=== PATIENT | female | born 1940 | race Caucasian/White ===

== ENCOUNTER → 2023-05-05 15:11 | Outpatient (REF) | payer OTHER, SELFPAY | LOC: HWRAD 15:11 | PROVIDERS: ATTENDING PHYSICIAN Internal Medicine Critical Care Medicine; FAMILY PHYSICIAN Chiropractor | DX: J47.9 Bronchiectasis, uncomplicated (principal) | CPT/HCPCS: 71250 ==

== ENCOUNTER → 2023-07-04 14:45 | Outpatient (REF) | payer OTHER, SELFPAY | LOC: HWRAD 14:45 | PROVIDERS: ATTENDING PHYSICIAN Nurse Practitioner Family | DX: K59.00 Constipation, unspecified (principal); M54.9 Dorsalgia, unspecified | CPT/HCPCS: 74018 ==

== ENCOUNTER → 2023-07-06 16:20 | Outpatient (REF) | payer OTHER, SELFPAY | LOC: RAD 16:20 | PROVIDERS: ATTENDING PHYSICIAN Family Medicine; FAMILY PHYSICIAN Nurse Practitioner Family | DX: R10.10 Upper abdominal pain, unspecified (principal) | CPT/HCPCS: 74176 ==

== ENCOUNTER → 2023-07-28 19:46 | Outpatient (REF) | payer OTHER, SELFPAY | LOC: MRI 19:46 | PROVIDERS: ATTENDING PHYSICIAN Internal Medicine; PRIMARYCARE PHYSICIAN Family Medicine | DX: K86.2 Cyst of pancreas (principal); K76.9 Liver disease, unspecified; N28.89 Other specified disorders of kidney and ureter; N28.1 Cyst of kidney, acquired | CPT/HCPCS: 74183; A9575 ==

== ENCOUNTER 2023-09-12 01:18 | Observation (INO) | payer OTHER, SELFPAY ==
[2023-09-11 21:14] VITALS: BP 180/88
--- NOTE | 2023-09-11 22:03 | ED.GENMED ---
History of Present Illness
General
Chief Complaint: Abdominal Pain
Source: patient
Exam Limitations: none
Time Seen by Provider: 09/11/23 21:20
History of Present Illness
History of Present Illness:
This is a 83 year old female that comes in with multiple complaints. States that she started in June with abd pain on the right side. States that she went to see her PCP and she had X-ray, CT scan. States that she was told that she was
constipated. States that she has seen 2 GI specialist and done colon cleans. States that she is taking Miralax. States that she went to the microchip specialist last week and she had injections at L2, L3. States that yesterday and today her pain
is worse. States that she has pain on both sided of her back that is moving up into her chest. States that she has chest pain, SOB. States that she is concerned that there is mucous plugging again due to her Bronchiectasis which she has had in the
past. States that she would like a chest CT. States that she did have a BM today. Denies any fever, chills, nausea, vomiting, diarrhea, headache, dizziness, urinary burning.
Past History
Past History
ED Past Medical History: Asthma, COPD, HTN and Other (Bronchiectasis, UTi, Kidney cyst, OA)
ED Past Surgical History: Orthopedic (right and left hip replacement)
Social History
Tobacco: Non-smoker
Alcohol: None
Personal:
Living: alone
Review of Systems
Review of Systems
All Other Systems: ROS reviewed and negative except as documented in HPI and ROS
Constitutional: Reports no symptoms; Denies fever or chills
EENT: Reports no symptoms
Respiratory: Reports trouble breathing; Denies cough
Cardiac: Reports chest pain
ABD/GI: Reports abdominal pain; Denies nausea, vomiting or diarrhea
: Reports no symptoms; Denies dysuria, frequency or urgency
Musculoskeletal: Reports no symptoms
Skin: Reports no symptoms
Neurological: Denies dizzy or headache
Psychiatric: Reports no symptoms
Phy Exam
General Physical Exam
General Presentation: no apparent distress
General age: appears stated age
General Skin: warm and dry
General Habitus: elderly
General Mental: alert
General Hydration: appears well hydrated
ENT Exam
ENT Exam: TM's normal, pharynx normal and neck supple
Eye Exam
Eye Exam: EOMI
Cardiovascular Exam
Cardiovascular Exam: regular rate/rhythm, no edema and normal peripheral pulses
Pulmonary Exam
Pulmonary Exam: no respiratory distress, chest non tender, no rhonchi, no wheezing, no cough and other (Rale right base)
Gastrointestinal Exam
Gastrointestinal Exam: normal bowel sounds, non tender, soft, no organomegaly, no pulsatile mass and non distended
Musculoskeletal Exam
Musculoskeletal Exam: full ROM and no edema
Skin Exam
Skin Exam: normal color, warm/dry, no rash and no petechia
Psychiatric Exam
Psychiatric Exam: normal mood/affect
Course
Orders/Labs/Results
Orders:
Orders
09/11/23 21:19
Electrocardiogram (*1) Urgent
Reason for Study: Chest Pain
EKG- Treatment ONCE
09/11/23 22:02
CT Chest With Iv Contrast Urgent
Comment: Concern for mucous plugging
Reason For Exam: SOB,
09/11/23 22:03
0.9% Sodium Chloride 1000 ml [Nss] 1,000 ml IV BOLUS
Ketorolac [Toradol] 30 mg IV NOW STA
09/11/23 22:10
Complete Blood Count/With Diff Urgent
Comprehensive Metabolic Panel Urgent
Troponin I Urgent
09/12/23 00:00
CR Abdomen - 1 View Urgent
Reason For Exam: ABD PAIN
09/12/23 01:00
Flush (0.9% Sodium Chloride) [Flush (Nss)] See Dose Instructions IV PER PROTOCOL
09/12/23 01:07
Admit/Transfer Patient As Directed
Co-Sign Provider:
Level of Care: Observation services
Assign to:: Medical/Surgical
Physician / Group: dinay
Diagnosis: Nonspecific abdominal pain and flank pain
09/12/23 01:08
Code Status As Directed
Resuscitation Status: Full Code
09/12/23 01:53
Acetaminophen [Tylenol] 650 mg PO Q4HPRN PRN
Bisacodyl [Dulcolax] 10 mg RECTAL [id number] PRN
Docusate W/Senna [Senokot-S] 1 tablet PO BIDPRN PRN
HYDROmorphone [Dilaudid] 0.5 mg IV Q4HPRN PRN
Polyethylene Glycol Powder [Miralax] 17 grams PO DAILYPRN PRN
tobramycin in 0.225 % NaCl See Dose Instructions INH R BID PRN
09/12/23 01:53
Activity As Directed
Activity Level: With Assistance
Vital Signs As Directed
Frequency: Per unit guidelines
DX Deep Vein Thrombosis Video Routine
09/12/23 Breakfast
Cholesterol Lowering
At Your Request: Full Participation
Cholesterol Lowering: Sodium, 2 Gram
Basic Metabolic Panel IN AM
Comprehensive Metabolic Panel IN AM
Physical Therapy Consult [Pt Eval And Treat] IN AM
Activity Level: With Assistance
09/12/23 08:00
Budesonide [Pulmicort] 0.5 mg INH BID
Ipratropium/Albuterol Sulfate [Duoneb] 3 ml INH R BID
Losartan/Hydrochlorothiazide [Hyzaar 50-12.5] 1 tab PO DAILY
Polyethylene Glycol Powder [Miralax] 17 grams PO DAILY
arformoterol [Brovana] 15 mcg IH BID
09/12/23 18:00
Enoxaparin Sodium [Lovenox] 40 mg SC QPM
Abnormal Lab Results
09/11/23
22:10
Sodium 134 L mmol/L
(135-145)
Chloride 96 L mmol/L
(98-107)
BUN 19 H mg/dl
(7-17)
Glucose 101 H mg/dl
(70-99)
09/11/23 22:10
09/11/23 22:10
chloride slightly low, dehydration. Glucose nonfasting. Troponin <0.012
Vital Signs
Initial and Last Documented VS:
Initial Vital Signs
Temp Pulse Resp BP Pulse Ox
97.2 F 82 24 180/88 100
09/11/23 21:14 09/11/23 21:14 09/11/23 21:14 09/11/23 21:14 09/11/23 21:14
Last Documented Vital Signs
Temp Pulse Resp BP Pulse Ox
98.4 F 73 14 169/77 95
09/12/23 01:50 09/12/23 01:50 09/12/23 01:50 09/12/23 01:50 09/12/23 01:50
MDM/Problems Addressed
Differential Diagnosis Includes:
Anxiety, Chronic abd pain, chronic back pain
MDM/Problems Addressed:
This is a 83 year old female that comes in with Multiple complaints. States that she started in June with right sided abd pain. States that she has had CT scan and MRI. Patient also have injection at L2-L3 last week. States that in the past 2 days
her pain has gotten worse and it is on both sided of her back and comes around into the left chest. States that she has been on the internet and she is afraid that she has Pleurisy and that there is mucous plugging in her lungs. States that she
would like a CT of her chest.
Will check labs, CT chest.
Back into see patient. Explained that her CT of her chest shows her chronic Bronchiectasis. No other acute process. Abd x-ray shows severe constipation. Does not appear from priox x-ray that the stool is moving. Patient continued with worsening
flank/back pain. Will admit for severe constipation. Hospitalist notified.
Chronic conditions affecting care: COPD (Bronchiectasis), Asthma and Other
Acute Exacerbation and/or Progression of Chronic Illness: COPD and Asthma
*Radiology
Radiology exam reviewed: radiology read reviewed (CT chest-No significant acute abnormality identified in the chest, as described above. Stable chronic changes suggesting chronic endobronchial infection)
*Pulse Oximetry
Patient hypoxic: no
*EKG
Interpreted by ED Provider?: Yes
Heart Rate: 76
Rate: normal
Rhythm: sinus
[place]: normal axis
Interval: normal interval
QRS Pattern: normal QRS
Ischemia: no ischemia
*Water [employer] Helper Interpretation
Rate: normal
Heart Rate: 80
Rhythm: sinus
*Critical Care Note
Total Time (30-74mins, 75-104mins- exclusive of procedures): Not Applicable
ED Attending Note
-
Portions of this chart may have been created with voice recognition software.� Occasional wrong word or��sound alike� substitutions may have occurred due to the inherent limitations of voice recognition software.
Discharge Plan
Departure
Patient Disposition: Admit
Date of Disposition: 09/12/23
Time of Disposition: 00:37
Admit to: Med/Surg
Presentation/result/management discussed w/ accepting MD/DO: Hospitalist
Patient with high blood pressure during this ER visit?: Yes
Condition: Good
Covid-19: Not Applicable
Discharge Problem:
severe Constipation, Bilateral flank pain
Interventions
Interventions:
*Risk Screen - Suicide Last Done: 09/11/23 21:14
*General Assessment Last Done: 09/11/23 22:25
*Neglect/Abuse Screening Last Done: 09/11/23 21:14
ED- Fall Risk Assessment Last Done: 09/12/23 01:45
*ED COVID-19 Vaccine History Last Done: 09/11/23 22:25
*Nursing Disposition Last Done: 09/12/23 01:45
ZX-Ayqcxt-Oghqhyvxfr Assessment Last Done: 09/11/23 22:39
ED- Cardiac Assessment Last Done: 09/11/23 22:39
ED- Pulmonary Assessment Last Done: 09/11/23 22:39
Discharge Date and Time
Discharge Date/Time: 09/12/23 01:46
[2023-09-11] MEDS: TORADOL 30 MG IV (22:11)
[2023-09-11] MEDS: NSS 1000 IV (22:11)
[2023-09-11 22:16] LABS: % Basophils 0.6 % (0-2); % Eosinophils 1.4 % (0-6); % Immature Granulocytes 0.4 % (0-0.5); % Lymphocytes 39.1 % (20.5-51.1); % Monocytes 7.4 % (1.7-9.3); % Neutrophils 51.1 % (42.2-75.2); Absolute Eosinophils 0.1 10^3/uL (0-0.7); Absolute Lymphocytes 2.7 10^3/uL (1.2-3.4); Absolute Monocytes 0.5 10^3/uL (0.1-0.6); Absolute Neutrophils 3.6 10^3/uL (1.4-6.5); Hematocrit 37.2 % (37.0-47.0); Hemoglobin 12.8 g/dL (12.0-16.0); Mean Corp Hgb Conc. 34.4 g/dL (33.0-37.0); Mean Corpuscular Hgb 29.9 pg (27.0-31.0); Mean Corpuscular Volume 86.9 fL (81.0-99.0); Mean Platelet Volume 9.4 fL (7.4-10.4); Nucleated Red Blood Cells % 0 %; Platelet Count 260 10^3/uL (130-400); Red Blood Cell Count 4.28 10^6/uL (4.20-5.40); Red Cell Dist. Width 13.2 % (11.5-14.5)
[2023-09-11 22:25] VITALS: BP 118/73; BMI 23.3
[2023-09-11 22:30] LABS: ALT (SGPT) 24 U/L (0-35); AST (SGOT) 28 U/L (14-36); Albumin 4.5 g/dl (3.5-5.0); Alkaline Phosphatase 126 U/L (38-126); Blood Urea Nitrogen 19 mg/dl (7-17); Calcium 9.6 mg/dl (8.4-10.2); Carbon Dioxide 30 mmol/L (22-30); Chloride 96 mmol/L (98-107); Estimated Creatinine Clearance 48 ml/min; Glucose 101 mg/dl (70-99); Potassium 3.9 mmol/L (3.5-5.1); Sodium 134 mmol/L (135-145); Total Bilirubin 0.5 mg/dl (0.2-1.3); Total Protein 7.1 g/dl (6.3-8.2); eGFR > 60.00
[2023-09-11 22:41] LABS: Troponin I < 0.012 ng/ml
[2023-09-11 23:00] VITALS: BP 152/69
[2023-09-12 00:56] VITALS: BP 149/79
--- NOTE | 2023-09-12 01:00 | HPS.HSE ---
Addendum entered and electronically signed by Pietro Donnelly MD 09/12/23 01:19:
Addendum HX:
Reports she drove herself to ER..
Original Note:
Family Physician
-
Family Physician: Shannan Escobar
Chief Complaint
-
abdominal pain, flank pain , bronchiectasis flare up ???
History of Present Illness
83F HX COPD, Bronchiectasis, UTI seen at ER for evaluation of abdominal pain and flank pain
Abdominal pain
- started since June noted aroud Rt sided abdomen
- eval by PCP and told constipation and eval by GI specialist
- MRI [facility] on 07/28/23 noted Large amount of fecal material throughout the proximal colon, multiple pancreatic cysts
- started on Miralax
- last BM today
- Denies any nausea, vomiting, diarrhea
B/l back pain
- s/p IAS L2 an L3 by ortho
- felt pain is worsened s/p IAS
- Non radiating pain
- no sensory deficit
HX Bronchiectasis
- Chest With Iv Contrast upon admission
-No significant acute abnormality identified in the chest, as described above.
- Stable chronic changes suggesting chronic endobronchial infection.
Medical History
Past Medical History
Past Medical History: Reports Asthma, COPD, HTN, Hypercholesterolemia and Other (Bronchiectasis, UTi, Kidney cyst, OA)
Past Surgical History: Reports Orthopedic (right and left hip replacement)
Social History
Tobacco: Non-smoker
Alcohol: None
Personal:
Family History
Family History: Not pertinent
Allergies / Home Medications
Allergies reflects when Allergies were last updated in [facility].
Home Medications with original date entered in [facility]
Allergy/Medication List:
Allergies
Allergy/AdvReac Type Severity Reaction Status Date / Time
neomycin Allergy Unknown Verified 09/11/23 21:17
Sulfa (Sulfonamide Allergy Unknown Verified 09/11/23 21:17
Antibiotics)
Home Medications
arformoterol 15 mcg/2 mL solution for nebulization (Brovana) 15 mcg IH BID 12/12/18
budesonide 0.5 mg/2 mL suspension for nebulization (Pulmicort) 0.5 mg IH BID 12/12/18
losartan 50 mg-hydrochlorothiazide 12.5 mg tablet 1 ea PO DAILY 12/12/18
tobramycin 300 mg/5 mL in 0.225 % sodium chloride for nebulization 300 mg IH BID PRN lung infection 12/12/18
ipratropium 0.5 mg-albuterol 3 mg (2.5 mg base)/3 mL nebulization soln 3 ml inhalation BID 09/12/23
Review of Systems
-
Constitutional: Reports No Symptoms
EENT: Reports No Symptoms
Respiratory: Reports No Symptoms
Cardiac: Reports No Symptoms
Abdomen/GI: Reports Abdominal Pain
: Reports No Symptoms
Musculoskeletal: Reports No Symptoms
Skin: Reports No Symptoms
Neurological: Reports No Symptoms
Endocrine: Reports No Symptoms
Hematologic/Lymphatic: Reports No Symptoms
Psych: Reports No Symptoms
Physical Exam
Vital Signs
Vital Signs
Temp Pulse Resp BP Pulse Ox
97.2 F 76 16 149/79 97
09/11/23 21:14 09/12/23 00:56 09/12/23 00:56 09/12/23 00:56 09/12/23 00:56
Physical Exam
General: Well Developed, Well Nourished and No Apparent Distress
HEENT: NormoCephalic, Moist mucous membranes and Atraumatic
Respiratory: Clear
Cardiac: S1/S2 and Regular Rhythm; No Murmur or Rub
GI: Soft, Non Tender, Non Distended and Normal Bowel Sounds; No Organomegaly
Rectal: Deferred by Provider
Musculoskeletal: No Clubbing, No Cyanosis and No Edema
Skin: No Rash
Neuro: Nonfocal/grossly intact
Laboratory Results
-
09/11/23 22:10
09/11/23 22:10
Laboratory Results
Total Bilirubin 0.5 mg/dl (0.2-1.3) 09/11/23 22:10
AST 28 U/L (14-36) 09/11/23 22:10
ALT 24 U/L (0-35) 09/11/23 22:10
Alkaline Phosphatase 126 U/L (38-126) 09/11/23 22:10
Troponin I < 0.012 ng/ml 09/11/23 22:10
Data Reviewed
-
CT Scan: Report Reviewed by me
Medical Tests (Nuc Med, Echo, EKG etc): Report Reviewed by me
Lab Data: Labs Reviewed by me
Old Records: Reviewed
Impression/Plan
-
Reviewed VS: Afebrile and unremarkable VSS
Data
Unremarkable CBC
Na 134
Cl 96
BUN 19
eGFR > 60
unremarkable LFTs
NEG TPNI
09/11/23 CT Chest With Iv Contrast
1. No significant acute abnormality identified in the chest, as described above.
2. Stable chronic changes suggesting chronic endobronchial infection.
07/28/23 MR Abdomen W/o & W Contrast
1. PANCREATIC HEAD CYSTS: (1) 1.2 cm multiseptated cyst which is unchanged in size. (2) 1.3 cm cyst which has mildly enlarged. Diagnostic possibilities are (1) pancreatic pseudocysts or (2) intraductal papillary mucinous tumors (IPMTs).
2. Bilateral simple and complex renal cysts.
3. 6.4 mm peripheral vascular shunt in the right lobe of the liver.
4. Mild adenomyomatosis in the gallbladder fundus.
5. 1.3 cm left adrenal adenoma.
6. Large amount of fecal material throughout the proximal colon suggesting SEVERE CONSTIPATION with an incompetent ileocecal valve and fecal-like material distending the terminal ileum.
7. SEVERE BRONCHIECTASIS in the right middle lobe and lingula.
8. Severe multilevel discogenic degenerative disease in the lumbar spine.
07/06/23 CT Abd/pelvis Wo Iv Cont
1. No CT evidence for intrarenal calculus, ureteral calculus, or hydroureteronephrosis. Mild bilateral renal cortical volume loss. Small number of bilateral renal cysts.
2. Moderate right convex curvature of the midlumbar spine. Severe discogenic degenerative disease and facet joint arthrosis in the lumbar spine. 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
3. Severe cystic and varicoid bronchiectasis in the right middle lobe and lingula. Mild varicoid bronchiectasis in the peripheral aspect of the basilar segments of the lower lobes with small focal regions of peripheral endobronchial impaction in
the right lower lobe.
EKG
NORMAL SINUS RHYTHM
NORMAL ECG
NO PRIOR hospitalist admission:
ASSESSMENT & PLAN
Subacute abdominal pain related to constipation
Likely resolved with Miralax
- cont Miralax
B/l back pain felt pain is worsened s/p IAS 1.5 week ago
- s/p IAS L2 an L3 by ortho
- Non radiating pain
- no sensory deficit
- PRN Analgesia
- BW regime'
- PT/OT
Stable bronchiectasis per current CT chest
- cont all OP Meds
Essential HTN
- stable
- cont. Losartan/HCTZ and amlodipine
- Marginal hyponatremia
- observe Na while on HCTZ
HLD
- cont. Atorvastatin
DVT Px: LMWH
Code: Full code
Obs MS
[2023-09-12 01:50] VITALS: BP 169/77; BMI 25.6
[2023-09-12] MEDS: TYLENOL 650 MG PO ×3 (02:25→22:06)
[2023-09-12 07:10] VITALS: BP 164/79
[2023-09-12] MEDS: PULMICORT 0.5 MG INH ×2 (07:16→19:07)
[2023-09-12] MEDS: DUONEB 3 ML INH (07:16)
[2023-09-12 07:53] LABS: ALT (SGPT) 22 U/L (0-35); AST (SGOT) 26 U/L (14-36); Alkaline Phosphatase 108 U/L (38-126); Blood Urea Nitrogen 15 mg/dl (7-17); Calcium 9.2 mg/dl (8.4-10.2); Carbon Dioxide 27 mmol/L (22-30); Chloride 102 mmol/L (98-107); Estimated Creatinine Clearance 64 ml/min; Glucose 85 mg/dl (70-99); Potassium 3.9 mmol/L (3.5-5.1); Sodium 136 mmol/L (135-145); Total Bilirubin 0.5 mg/dl (0.2-1.3); Total Protein 6.3 g/dl (6.3-8.2); eGFR > 60.00
[2023-09-12] MEDS: MIRALAX 17 GRAMS PO (08:03)
[2023-09-12] MEDS: HYZAAR 50-12.5 1 TAB PO (08:03)
--- NOTE | 2023-09-12 11:52 | PTOTSP ---
Received order for PT from the ED and reviewed chart. Noted pt drove herself to the hospital. S/w RN who reports pt is ambulating independently in her room ad arelis and does not need PT services. Will sign off.
--- NOTE | 2023-09-12 13:00 | CM ---
Reviewed chart, met with patient to obtain information for assessment. OBS letter provided, signed and is on chart. Patient stated that she lives alone in a [facility]. It is all one floor. No steps. Patient ambulates
independently without device. She described herself as independent with ADLs, personal care, dressing and bathing. She relayed that she can cook, clean, do pulmonary specialist and laundry. Patient drives and can get herself to all of her appointments
and to the store.
Patient has a nebulizer but denied any other DME.
Patient has not had VN services in the past.
She has never been to a SNF.
Patient has a prescription plan and uses [facility] in [place] for all of her medications.
Her PCP is, Shannan Escobar MD.
Patient stated that physically she feels that she is at her baseline and she would like to return home when medically cleared. Patient drove herself to the hospital and anticipates driving home.
Plan: Case management will continue to follow and assist with discharge planning. Home when medically stable for discharge.
[2023-09-12 15:15] VITALS: BP 158/80
[2023-09-12] MEDS: SENOKOT-S 1 TABLET PO (16:47)
[2023-09-12] MEDS: LOVENOX 40 MG SC (17:31)
[2023-09-12] MEDS: NON-FORMULARY ITEM 15 MCG NEB (19:06)
[2023-09-12] MEDS: DULCOLAX 10 MG RECTAL (22:09)
[2023-09-12 23:04] VITALS: BP 130/71
--- NOTE | 2023-09-13 07:04 | CON.GI ---
Addendum entered and electronically signed by RACH Miller 09/13/23 11:40:
reviewed with Dr. sarabia and nursing staff stable for discharge
Original Note:
Consultation
-
Date/Time Consultation Requested: 09/12/23 1730
Date/Time Consultation Performed: 09/13/23 1045
Requesting Provider: Babak Sarabia MD
Performing Provider: RACH Alfaro, Hong Siegel MD
Reason for Consultation: abdominal pain
Medical History
Chief Complaint / HPI
History of Present Illness:
Pt is an 83yo presents with hx pancreatic cysts with prior OP follow on imaging, COPD, asthma, bronchiectasis, HTN, hypercholesterolemia presents to ER for abdominal and flank pain. On admission Abdominal X ray with large amount of feces in colon
suggesting constipation. Hx colonoscopy Dr. Camahco 2020 with moderate difficulty due to angulation to cecum with diverticulosis, fixation an spasm in sigmoid with difficuly and hemorrhoids. In reviewing with patient hx chronic constipation with
worsening symptoms last few months. She did have some change in supplement with flax seed oil but denies any medication changes. She did seek care with ortho for back injection and urology with hx renal cyst to exclude other pathology. She also
saw 2 outpatient GI MD's. She saw Dr. Hicks with [facility] and completed Miralax/Gatorade cleanse with no improvement in past with vomiting and diarrhea with use. She also tried Mag citrate cleanse with PCP. She saw Dr. Currie who recommended mag
citrate cleanse then X ray then start Trulance. She did also try Linzess in past with side effect of headache and stopped.
She describes abdominal pain as right sided under ribs 7/10 on admission now some improvement with BM 5-6/10. She denies issues with odynophagia, dysphagia, GERD, nausea/vomiting(except with cleanse), blood or black in stools. No
anticoagulation or NSAID use. Last MRI last month with noted pancreatic head cyst including 1.2 cm multiseptated cyst and 1.3 cm cyst with mild enlargement - pseudocyst vs IPMN.
Past Medical History
Past Medical History: Asthma, COPD, HTN, Hypercholesterolemia and Other (bronchiectasis, UTI, kidney cysts, OA, pancreatic cysts, adrenal adenoma, constipation, renal cyst)
Past Surgical History: Orthopedic (right and left hip replacement )
Social History
Tobacco: Non-Smoker
Alcohol: None
Drug: None
Living: Alone
Employment: Retired
Family History
Family History: Other (no family hx GI malignancies )
Allergies / Home Medications
Allergy/AdvReac Type Severity Reaction Status Date / Time
neomycin Allergy Unknown Verified 09/11/23 21:17
Sulfa (Sulfonamide Allergy Unknown Verified 09/11/23 21:17
Antibiotics)
�Medication �Instructions �Recorded
arformoterol 15 mcg/2 mL solution 15 mcg IH BID 12/12/18
for nebulization (Brovana)
budesonide 0.5 mg/2 mL suspension 0.5 mg IH BID 12/12/18
for nebulization (Pulmicort)
losartan 50 mg-hydrochlorothiazide 1 ea PO DAILY 12/12/18
12.5 mg tablet
tobramycin 300 mg/5 mL in 0.225 % 300 mg IH BID PRN lung infection 12/12/18
sodium chloride for nebulization
ipratropium 0.5 mg-albuterol 3 mg 3 ml inhalation BID 09/12/23
(2.5 mg base)/3 mL nebulization
soln
Review of Systems
-
History Source: Patient
Constitutional: Reports Weight Loss (in past with prior resp issues gained a few lbs back )
EENT: Reports No Symptoms
Respiratory: Reports No Symptoms
Abdomen/GI: Reports Abdominal Pain and Constipated
: Reports No Symptoms
Musculoskeletal: Reports No Symptoms
Skin: Reports No Symptoms
Neurological: Reports Other (depression with GI issues )
Endocrine: Reports No Symptoms
Hematologic/Lymphatic: Reports No Symptoms
Vital Signs
Temp Pulse Resp BP Pulse Ox
98.6 F 80 17 130/71 96
09/12/23 23:04 09/12/23 23:04 09/12/23 23:04 09/12/23 23:04 09/12/23 23:04
Physical Exam
Exam
General: Well Developed, Well Nourished and No Apparent Distress
HEENT: Normocephalic and Anicteric
Respiratory: Clear
Cardiac: Regular Rhythm
GI: Soft, Non Distended and Tender (right sided )
Musculoskeletal: No Clubbing and No Cyanosis
Skin: Warm and Dry
Neuro: Awake, Alert and AO x 3
Psych: Calm
Results
WBC 7.0 10^3/uL (4.8-10.8) 09/11/23 22:10
Hgb 12.8 g/dL (12.0-16.0) 09/11/23 22:10
Hct 37.2 % (37.0-47.0) 09/11/23 22:10
MCV 86.9 fL (81.0-99.0) 09/11/23 22:10
Plt Count 260 10^3/uL (130-400) 09/11/23 22:10
Absolute Neuts (auto) 3.6 10^3/uL (1.4-6.5) 09/11/23 22:10
Sodium 136 mmol/L (135-145) 09/12/23 06:52
Potassium 3.9 mmol/L (3.5-5.1) 09/12/23 06:52
Chloride 102 mmol/L (98-107) 09/12/23 06:52
Carbon Dioxide 27 mmol/L (22-30) 09/12/23 06:52
BUN 15 mg/dl (7-17) 09/12/23 06:52
Creatinine 0.6 mg/dL (0.6-1.0) 09/12/23 06:52
Calcium 9.2 mg/dl (8.4-10.2) 09/12/23 06:52
Total Bilirubin 0.5 mg/dl (0.2-1.3) 09/12/23 06:52
AST 26 U/L (14-36) 09/12/23 06:52
ALT 22 U/L (0-35) 09/12/23 06:52
Alkaline Phosphatase 108 U/L (38-126) 09/12/23 06:52
Diagnostic Image Results:
09/11/23 CT chest
1. No significant acute abnormality identified in the chest, as described above.
2. Stable chronic changes suggesting chronic endobronchial infection.
09/12/23 abd X ray
There is a large amount of feces throughout the colon suggesting constipation
07/28/23 MR Abdomen W/o  W Contrast
1. PANCREATIC HEAD CYSTS: (1) 1.2 cm multiseptated cyst which is unchanged in size. (2) 1.3 cm cyst which has mildly enlarged. Diagnostic possibilities are (1) pancreatic pseudocysts or (2) intraductal papillary mucinous tumors (IPMTs).
2. Bilateral simple and complex renal cysts.
3. 6.4 mm peripheral vascular shunt in the right lobe of the liver.
4. Mild adenomyomatosis in the gallbladder fundus.
5. 1.3 cm left adrenal adenoma.
6. Large amount of fecal material throughout the proximal colon suggesting SEVERE CONSTIPATION with an incompetent ileocecal valve and fecal-like material distending the terminal ileum.
7. SEVERE BRONCHIECTASIS in the right middle lobe and lingula.
8. Severe multilevel discogenic degenerative disease in the lumbar spine.
Prior GI Procedures:
Colonoscopy: Dr. Camahco 2020 with moderate difficulty due to angulation to cecum with diverticulosis, fixation an spasm in sigmoid with difficuly and hemorrhoids.
Assessment / Plan
-
Pt is an 83yo presents with hx pancreatic cysts with prior OP follow on imaging, COPD, asthma, bronchiectasis, HTN, hypercholesterolemia presents to ER for abdominal and flank pain. On admission Abdominal X ray with large amount of feces in colon
suggesting constipation. Hx colonoscopy Dr. Camacho 2020 with moderate difficulty due to angulation to cecum with diverticulosis, fixation an spasm in sigmoid with difficulty and hemorrhoids. In reviewing with patient hx chronic constipation with
worsening symptoms last few months. She did have some change in supplement with flax seed oil but denies any medication changes. She did seek care with ortho for back injection and urology with hx renal cyst to exclude other pathology. She also
saw 2 outpatient GI MD's. She saw Dr. Hicks with [facility] and completed Miralax/Gatorade cleanse with no improvement in past with vomiting and diarrhea with use. She also tried Mag citrate cleanse with PCP. She saw Dr. Currie who recommended mag
citrate cleanse then X ray then start Trulance. She did also try Linzess in past with side effect of headache and stopped.
-abdominal pain
-worsening constipation
-hx colonoscopy 2020 with with moderate difficulty due to angulation to cecum with diverticulosis, fixation an spasm in sigmoid with difficulty and hemorrhoids
-pancreatic cysts -- followed with serial MRI's
other medical problems:
--COPD
-asthma
-bronchiectasis
-HTN
-hypercholesterolemia
PLAN:
etiology of abdominal pain related to constipation vs other
pt with some improvement with passing of stools overnight
reviewed at length with patient for discharge
Miralax 17 gram BID and senna at HS
PRN mag citrate and dulcolax and if needed Enema
if not working can change to Trulance daily
can try to slowly add fiber
message sent to office for STUDENT ACCOUNTS MANAGER follow up 6-8 weeks
if not improving consider repeat colonoscopy
routine OP follow for panc cysts
-
-
Thank you for consultation and allowing me to participate in the patient's care. Please call the infection prevention practitioner GI physician during the after hours with any questions or concerns.
[2023-09-13] MEDS: NON-FORMULARY ITEM 15 MCG NEB (07:44)
[2023-09-13] MEDS: PULMICORT 0.5 MG INH (07:45)
[2023-09-13 07:52] VITALS: BP 154/89
[2023-09-13] MEDS: DUONEB 3 ML INH (08:05)
[2023-09-13] MEDS: MIRALAX 17 GRAMS PO (08:18)
[2023-09-13] MEDS: HYZAAR 50-12.5 1 TAB PO (08:18)
--- NOTE | 2023-09-13 11:37 | W.PN.HOSP.TC ---
Today's Communication/Plan
-
DC
Assessment / Plan
Assessment / Plan
ASSESSMENT & PLAN
Subacute abdominal pain suspect related to constipation
Patient has a symptom is chronic for at least the last 2 to 3 months. She had a evaluation including abdominal imaging as above. She does have redundant transverse colon and right-sided constipation. Continue the bowel regimen. Appreciate GI
input-recommend combination of bowel regimen and follow-up as outpatient. Lab work is all within normal limit.
B/l back pain felt pain is worsened s/p IAS 1.5 week ago
- s/p IAS L2 an L3 by ortho
- No sciatica nor lumbar tenderness
Stable bronchiectasis per current CT chest
- cont all OP Meds
Essential HTN
- stable
- cont. Losartan/HCTZ and amlodipine
- Marginal hyponatremia
- observe Na while on HCTZ
HLD
- cont. Atorvastatin
Medically stable for dc home today
Anticipated Discharge: Today
Subjective/Interval History
-
Date of Service: September 13, 2023
patient with a longstanding history of constipation ,saw 2 GI physicians, had a few abdominal imaging before coming to the hospital. She says nothing is helping her. If she gets too much laxatives she then has a diarrheal stool. She says she
had a colonoscopy and then needed to use a pediatric scope because her colon was redundant.
Her other symptom is right-sided back to upper abdominal pain which goes across the abdomen to the left side. Mostly there intermittently ,get worse. Worse with food. Better with a bowel movement.
Objective Data
-
Vital Signs:
Vital Signs
Temp Pulse Resp BP Pulse Ox
98.2 F 80 18 154/89 96
09/13/23 07:52 09/13/23 08:18 09/13/23 07:52 09/13/23 08:18 09/13/23 07:52
I&O
09/12/23 09/13/23 09/14/23
06:59 06:59 06:59
Intake Total 480 / 480 1200 / 1200
Balance 480 / 480 1200 / 1200
Review of Systems
-
Constitutional: Denies Fever
EENT: Denies Sore Throat
Respiratory: Denies Cough or Trouble Breathing
Cardiac: Denies Chest Pain
Neuro: Denies Dizzy
Physical Exam
-
General: No Apparent Distress
HEENT: Moist Mucous Membranes
Respiratory: Clear to Auscultation
Cardiac: Regular Rhythm and S1/S2
GI: Soft, Nontender, Nondistended and Normal Bowel Sounds
Musculoskeletal: Other (no lumbar or thoracic vertebral tenderness on palpation today)
Neuro: AO x 3
Psych: Calm
Data Reviewed
-
Labs: Labs Reviewed by me
--- NOTE | 2023-09-13 11:48 | W.DS.TRANS ---
DC Summary - Credit Intern
-
Discharge Instructions:
Discharge Diagnosis/Procedures Constipation
Diet Regular
Activity As tolerated
Driving Restrictions As prior to admission
Instructions:
Stand-Alone Forms:
Changes to Home Medications: Yes
Discharge Medications:
DC Medications w/original date entered in Contrib
arformoterol 15 mcg/2 mL solution for nebulization (Brovana) 15 mcg IH R BID Lung/Breathing Issues 12/12/18
budesonide 0.5 mg/2 mL suspension for nebulization (Pulmicort) 0.5 mg IH R BID Lung/Breathing Issues 12/12/18
tobramycin 300 mg/5 mL in 0.225 % sodium chloride for nebulization 300 mg IH BID PRN lung infection 12/12/18
ipratropium 0.5 mg-albuterol 3 mg (2.5 mg base)/3 mL nebulization soln 3 ml inhalation R BID Lung/Breathing Issues 09/12/23
amlodipine 2.5 mg tablet 2.5 mg PO DAILY Blood Pressure 09/13/23
docusate sodium 100 mg capsule (Colace) 100 mg PO BID #60 caps 09/13/23
losartan 100 mg-hydrochlorothiazide 25 mg tablet 1 tab PO DAILY Blood Pressure 09/13/23
polyethylene glycol 3350 17 gram oral powder packet (HealthyLax) 17 g PO BID #60 ea 09/13/23
sennosides 8.6 mg capsule (senna) 8.6 mg PO HS PRN Constipation #30 caps 09/13/23
Home Medication Changes
Medication-Colace, MiraLAX, senna as needed
Pending Results: No
== END 2023-09-13 11:50 | disposition home or self-care (01) ==
LOC: 3 WEST ACU 01:18
PROVIDERS: Clinical Nurse Specialist Family Health; ADMITTING PHYSICIAN Internal Medicine; ATTENDING PHYSICIAN Internal Medicine; CONSULT PHYSICIAN Internal Medicine Gastroenterology; EMERGENCY PHYSICIAN Emergency Medicine; FAMILY PHYSICIAN Family Medicine
DX: K59.00 Constipation, unspecified (principal); R10.9 Unspecified abdominal pain; R07.9 Chest pain, unspecified; R06.02 Shortness of breath; J44.9 Chronic obstructive pulmonary disease, unspecified; I10 Essential (primary) hypertension; M19.90 Unspecified osteoarthritis, unspecified site; E78.5 Hyperlipidemia, unspecified; Q43.8 Other specified congenital malformations of intestine; N28.1 Cyst of kidney, acquired; E86.0 Dehydration; M54.9 Dorsalgia, unspecified; E87.1 Hypo-osmolality and hyponatremia; K86.2 Cyst of pancreas; E78.00 Pure hypercholesterolemia, unspecified; J47.9 Bronchiectasis, uncomplicated; Z87.440 Personal history of urinary (tract) infections; Z96.643 Presence of artificial hip joint, bilateral; Z88.1 Allergy status to other antibiotic agents; Z88.2 Allergy status to sulfonamides; Z79.51 Long term (current) use of inhaled steroids; Z86.018 Personal history of other benign neoplasm
CPT/HCPCS: 71260; 74018; 80048; 80053; 84484; 85025; 93005; 94640; 96361; 96374; 99285; G0378; Q9967

== ENCOUNTER → 2023-09-20 12:05 | Outpatient (REF) | payer OTHER, SELFPAY | LOC: HWRAD 12:05 | PROVIDERS: ATTENDING PHYSICIAN Nurse Practitioner Family; REFERRING PHYSICIAN Family Medicine | DX: M89.8X9 Other specified disorders of bone, unspecified site (principal); M79.671 Pain in right foot | CPT/HCPCS: 73620; 76604 ==

== ENCOUNTER → 2023-09-21 14:29 | Outpatient (REF) | payer OTHER, SELFPAY | LOC: RAD 14:29 | PROVIDERS: ATTENDING PHYSICIAN Internal Medicine Critical Care Medicine; FAMILY PHYSICIAN Family Medicine | DX: R10.11 Right upper quadrant pain (principal); K81.9 Cholecystitis, unspecified | CPT/HCPCS: 76700 ==

== ENCOUNTER → 2023-09-27 10:22 | Outpatient (REF) | payer OTHER, SELFPAY | LOC: HWRAD 10:22 | PROVIDERS: ATTENDING PHYSICIAN Internal Medicine Gastroenterology; FAMILY PHYSICIAN Family Medicine | DX: K59.04 Chronic idiopathic constipation (principal) | CPT/HCPCS: 74018 ==

== ENCOUNTER → 2023-10-12 07:16 | Outpatient (REF) | payer OTHER, SELFPAY | LOC: RAD 07:16 | PROVIDERS: ATTENDING PHYSICIAN Physician Assistant; FAMILY PHYSICIAN Family Medicine | DX: R10.11 Right upper quadrant pain (principal) | CPT/HCPCS: 78227; A9537; J2805 ==

== ENCOUNTER 2024-01-20 06:37 | Day surgery (SDC) | payer OTHER, SELFPAY ==
[2024-01-20] VITALS (12 sets, daily range): BP systolic 110–157; BP diastolic 54–76
[2024-01-20] MEDS: TYLENOL 1000 MG PO (09:58)
--- NOTE | 2024-01-20 10:25 | HP.FOC2 ---
Focused History & Physical
Chief Complaint
HPI:
Chief Complaint: Right upper quadrant pain
HPI / Indication for Planned Procedure: Patient is an 83-year-old female seen in outpatient surgical evaluation secondary to a history of intermittent right upper quadrant right flank pain. She has been experiencing bandlike upper abdominal
discomfort as pain as well as bloating. It is triggered to a degree by every and any meal but worse with fatty food intake and dairy. She has had extensive radiographic testing and imaging studies as well as for colonoscopy evaluations without any
additional pathology identified. She does have adenomyomatosis. After lengthy discussions with the patient regarding treatment options she wished to pursue cholecystectomy for the presumed diagnosis of biliary dyskinesia/functional disorder of the
gallbladder.
Relevant Past Medical History: Other ( Asthma, bronchiectasis, hip pain, jaw pain, hypertension)
Relevant Social History: Negative
Relevant Family History: Negative
Relevant Past Surgical History: Positive for (Thumb procedure, cataracts, bilateral hip replacements, bronchoscopy and endoscopies)
Review of Systems
Review of Pertinent Systems: All Systems Negative
Medication
See Medication form for detailed medications: Yes
Medication List (including Herbals & OTC):
budesonide 0.5 mg/2 mL suspension for nebulization (Pulmicort) 0.5 mg IH R BID Lung/Breathing Issues 12/12/18
tobramycin 300 mg/5 mL in 0.225 % sodium chloride for nebulization 300 mg IH BID PRN lung infection 12/12/18
amlodipine 2.5 mg tablet 2.5 mg PO DAILY Blood Pressure 09/13/23
losartan 100 mg-hydrochlorothiazide 25 mg tablet 1 tab PO DAILY Blood Pressure 09/13/23
Black Seed Oil 4 ml PO BID 01/19/24
Clear Lungs 1,000 mg PO DAILY 01/19/24
Hair Growth Support 1 cap PO DAILY 01/19/24
Oregarest 1 cap PO DAILY 01/19/24
Probiotic 1 cap PO DAILY@1200 01/19/24
acetylcysteine 100 mg/mL (10 %) solution 2 mg inhalation BID 01/19/24
arformoterol 15 mcg/2 mL solution for nebulization 15 mcg inhalation BID 01/19/24
ascorbic acid (vitamin C) 500 mg tablet (Vitamin C) 500 mg PO DAILY 01/19/24
aspirin 81 mg tablet,delayed release 81 mg PO DAILY 01/19/24
cyanocobalamin (vitamin B-12) 5,000 mcg/mL sublingual drops (Vitamin B-12) 5,000 mcg sublingual DAILY 01/19/24
docusate sodium 100 mg capsule (Colace) 100 mg PO DAILY 01/19/24
ipratropium bromide 0.02 % solution for inhalation 0.5 mg inhalation BID 01/19/24
linaclotide 145 mcg capsule (Linzess) 145 mcg PO DAILY 01/19/24
magnesium 140 mg PO HS 01/19/24
eliel d arco 1 dose PO DAILY 01/19/24
polyethylene glycol 3350 17 gram oral powder packet (HealthyLax) 17 g PO DAILY 01/19/24
quercetin 1 cap PO BID 01/19/24
vitamin A-vitamin C-vit E-min tablet 1 tab PO DAILY 01/19/24
Medications Reviewed: Yes
Allergies and Reactions
Patient has Allergies: Yes
Noted Allergies and Reactions:
Allergy/AdvReac Type Severity Reaction Status Date / Time
neomycin Allergy Inflammatio Verified 01/20/24 09:51
n
Sulfa (Sulfonamide Allergy Rash Verified 01/20/24 09:51
Antibiotics)
Opiods AdvReac Bronchaicti Uncoded 01/20/24 09:51
sis
Pertinent Physical Exam
All Other Systems: Negative
Head/Neck: Normal
Lungs: Normal
Heart: Normal
Abdomen: Normal
Extremities: Normal
Neurological: Normal
Diagnosis / Assessment
Assessment: 83-year-old female with adenomyomatosis of the gallbladder and presumed functional gallbladder disorder/biliary dyskinesia
Plan / Procedure
Laparoscopic cholecystectomy with cholangiogram
Anesthesia/Sedation to be done by Anesthesia Provider: Yes
--- NOTE | 2024-01-20 10:29 | W.SUR.PREOP ---
Pre-Operative Surgical Note
-
I have examined this patient prior to the performance of the scheduled procedure.
The patient's condition is unchanged from the time of the current History and
Physical and the patient is able to undergo the scheduled procedure.
--- NOTE | 2024-01-20 12:01 | W.IMMPOSTOP ---
Addendum entered and electronically signed by Robb Berrios MD 01/20/24 12:09:
#[id number]
Original Note:
Surgical Immed Post Op Note
-
Primary Surgeon: Agustina
Assisting Surgeon: None
Pre-op Diagnosis: Biliary dyskinesia/functional disorder the gallbladder
Gallbladder adenomyomatosis
Post-op Diagnosis: Biliary dyskinesia/functional disorder the gallbladder
Gallbladder adenomyomatosis
Procedure Performed: Laparoscopic cholecystectomy with intraoperative cholangiogram
Anesthesia Type: GETA +0.25% Marcaine
Specimen / Cultures: Gallbladder/none
Estimated Blood Loss: 4 mL
Complications: None immediate
Operative Findings: Few filmy adhesions to gallbladder. Cystic duct and artery individually identified and controlled with hemoclips. Intraoperative cholangiogram normal. Gallbladder extracted at epigastric 12 mm trocar site
[2024-01-20] MEDS: TYLENOL 650 MG PO (14:07)
== END 2024-01-20 14:50 | disposition home or self-care (01) ==
LOC: SDS 06:37
PROVIDERS: ATTENDING PHYSICIAN Surgery
DX: K82.8 Other specified diseases of gallbladder (principal)
CPT/HCPCS: 47563; 88304; 74300; 76000

== ENCOUNTER → 2024-03-29 12:26 | Outpatient (REF) | payer OTHER, SELFPAY | LOC: HWRAD 12:26 | PROVIDERS: FAMILY PHYSICIAN Family Medicine; OTHER PHYSICIAN Internal Medicine Critical Care Medicine; REFERRING PHYSICIAN Internal Medicine Infectious Disease | DX: J47.1 Bronchiectasis with (acute) exacerbation (principal); B49 Unspecified mycosis | CPT/HCPCS: 71250 ==

== ENCOUNTER → 2024-05-07 13:40 | Outpatient (REF) | payer OTHER, SELFPAY | LOC: HWRAD 13:40 | PROVIDERS: ATTENDING PHYSICIAN Internal Medicine Critical Care Medicine; FAMILY PHYSICIAN Family Medicine; REFERRING PHYSICIAN Internal Medicine Infectious Disease | DX: J47.9 Bronchiectasis, uncomplicated (principal) | CPT/HCPCS: 71250 ==

== ENCOUNTER → 2024-06-26 11:14 | Outpatient (REF) | payer OTHER, SELFPAY | LOC: HWRAD 11:14 | PROVIDERS: ATTENDING PHYSICIAN Family Medicine | DX: R07.81 Pleurodynia (principal) | CPT/HCPCS: 71101 ==

== ENCOUNTER → 2024-07-03 10:50 | Outpatient (REF) | payer OTHER, SELFPAY | LOC: HWRAD 10:50 | PROVIDERS: ATTENDING PHYSICIAN Family Medicine | DX: N95.9 Unspecified menopausal and perimenopausal disorder (principal) | CPT/HCPCS: 77080 ==

== ENCOUNTER 2024-08-14 21:46 | Emergency (ER) | payer OTHER, SELFPAY ==
[2024-08-14 21:49] VITALS: BP 115/76
[2024-08-14 22:09] LABS: % Basophils 0.6 % (0-2); % Eosinophils 2.2 % (0-6); % Immature Granulocytes 0.3 % (0-0.5); % Lymphocytes 17.7 % (20.5-51.1); % Monocytes 8.8 % (1.7-9.3); % Neutrophils 70.4 % (42.2-75.2); Absolute Eosinophils 0.2 10^3/uL (0-0.7); Absolute Lymphocytes 1.3 10^3/uL (1.2-3.4); Absolute Monocytes 0.6 10^3/uL (0.1-0.6); Absolute Neutrophils 5.1 10^3/uL (1.4-6.5); Hematocrit 36.2 % (37.0-47.0); Hemoglobin 12.2 g/dL (12.0-16.0); Mean Corp Hgb Conc. 33.7 g/dL (33.0-37.0); Mean Corpuscular Hgb 29.3 pg (27.0-31.0); Mean Platelet Volume 9.3 fL (7.4-10.4); Nucleated Red Blood Cells % 0 %; Platelet Count 227 10^3/uL (130-400); Red Blood Cell Count 4.16 10^6/uL (4.20-5.40); Red Cell Dist. Width 12.7 % (11.5-14.5); White Blood Cell Count 7.2 10^3/uL (4.8-10.8)
[2024-08-14 22:30] LABS: ALT (SGPT) 18 U/L (0-35); AST (SGOT) 26 U/L (14-36); Albumin 4.4 g/dl (3.5-5.0); Alkaline Phosphatase 116 U/L (38-126); Blood Urea Nitrogen 18 mg/dl (7-17); Calcium 9.3 mg/dl (8.4-10.2); Carbon Dioxide 28 mmol/L (22-30); Chloride 103 mmol/L (98-107); Glucose 135 mg/dl (70-99); Potassium 4.3 mmol/L (3.5-5.1); Sodium 137 mmol/L (135-145); Total Bilirubin 0.4 mg/dl (0.2-1.3); Total Protein 7.1 g/dl (6.3-8.2); eGFR > 60.00
[2024-08-14 22:35] LABS: Troponin I < 0.012 ng/ml
[2024-08-14 22:47] VITALS: BP 149/64
[2024-08-14 22:50] VITALS: BMI 24.5
[2024-08-14 23:00] VITALS: BP 131/58
--- NOTE | 2024-08-14 23:50 | ED.GENMED ---
History of Present Illness
General
Chief Complaint: Cough
Source: patient
Exam Limitations: none
Time Seen by Provider: 08/14/24 23:40
History of Present Illness
History of Present Illness:
See MDM
Past History
Past History
ED Past Medical History: Asthma, COPD, HTN and Other (Bronchiectasis, UTi, Kidney cyst, OA)
ED Past Surgical History: Orthopedic (right and left hip replacement)
Social History
Tobacco: Non-smoker
Alcohol: None
Personal:
Living: alone
Phy Exam
Physical Exam
Physical Exam:
See MDM
Course
Orders/Labs/Results
Orders:
Orders
08/14/24 21:53
Electrocardiogram (*1) Urgent
Reason for Study: Other
Other Reason for Exam: Respiratory Distress
Cardiac Monitoring- Treatment ONCE
EKG- Treatment ONCE
IV Insert/Care/Rem.- Treatment PRN
CR Chest - 2 Views Urgent
Comment:
Reason For Exam: respiratory distress
O2 Therapy [RESP] Urgent
Titrate/Wean O2 to maintain O2 sat greater than (%): 93
Special Instructions: TO MAINTAIN CONTINUOUS O2 SATS >/= 93%
Pulse Ox/cont/shift [RESP] Urgent
Quantity: 1
Special Instructions: continuous pulse ox
08/14/24 22:03
Complete Blood Count/With Diff Urgent
Comprehensive Metabolic Panel Urgent
Troponin I Urgent
08/14/24 23:49
Amoxicillin 875 mg/Clav 125 mg [Augmentin 875 mg/125 mg] 1 tablet PO NOW STA
Doxycycline [Vibramycin] 100 mg PO NOW STA
08/15/24
CT Chest W/o Iv Contrast Urgent
Reason For Exam: cough, sob
Abnormal Lab Results
08/14/24
22:03
RBC 4.16 L 10^6/uL
(4.20-5.40)
Hct 36.2 L %
(37.0-47.0)
Lymphocytes % 17.7 L %
(20.5-51.1)
BUN 18 H mg/dl
(7-17)
Glucose 135 H mg/dl
(70-99)
08/14/24 22:03
08/14/24 22:03
Vital Signs
Initial and Last Documented VS:
Initial Vital Signs
Temp Pulse Resp BP Pulse Ox
97.7 F 85 16 115/76 98
08/14/24 21:49 08/14/24 21:49 08/14/24 21:49 08/14/24 21:49 08/14/24 21:49
Last Documented Vital Signs
Temp Pulse Resp BP Pulse Ox
98.6 F 80 16 147/61 95
08/14/24 22:52 08/15/24 00:00 08/14/24 23:59 08/15/24 00:00 08/15/24 00:00
MDM/Problems Addressed
Differential Diagnosis Includes:
HPI and MDM Narrative:
83-year-old female presenting with shortness of breath and cough. She is chronically short of breath due to her bronchiectasis. She states she has had more sputum production over the past month. Patient was actually worried because she was
coughing tonight and no mucus was coming out. Started to get worried that she has mucous plugging. She was just started on azithromycin for presumed pneumonia
Blood work and chest x-ray done prior to my assessment. Blood work without clinically relevant abnormalities. However, chest x-ray concerning for right middle lobe pneumonia. Patient states this is where majority of her bronchiectasis is. She is
requesting a CT
Given her bronchiectasis and concern for worse pneumonia, we will transition her azithromycin to Augmentin and Doxycycline
Physical exam
General: Well appearing and non-toxic
HEENT: protecting airway
Neck: appears supple
CV: No evidence of cyanosis
Resp: No accessory muscle use. Mild inspiratory wheeze on the right
Abd: Non-distended
Extremities: No deformities
Neuro: alert
Psych: Normal affect
Skin: Intact
Problems Addressed including Acute and Chronic Conditions affecting care:
1. Shortness of breath and cough
Acuity: acute
Prognosis: stable
Details: Likely related to her bronchiectasis and mucous plugging. Given chest x-ray concerning for worsening pneumonia, will start Augmentin and doxycycline
Updates
CT concerning for bronchiectasis and lower lobe pneumonia. Patient started on Augmentin and doxycycline
Differential Diagnosis (but not limited to): Bronchiectasis, pneumonia
Testing considered: CT angiogram
Drug therapy (if applicable): OTC meds, please see d/c instruction regarding Rx drugs
Amount and/or Complexity of Data Reviewed
Clinical info obtained from: Patient
External data reviewed: N/A
Labs I independently reviewed (but not limited to): White blood cell count
Radiology: X-ray independently reviewed: Chest x-ray concerning for right middle lobe pneumonia
Pulse Ox: not hypoxic
EKG independently reviewed: N/A
[employer]: N/A
Critical Care: N/A
Risk of Complication:
Social Determinants of health: Good social support
Discussed with other providers: N/A
Escalation of Care includes Admit/Obs: After being observed in the Emergency Department, pt stable for discharge.
Occasional wrong word or 'sound a like' substitutions may have occurred due to the inherent limitations of voice recognition software. Read the chart carefully and recognize, using context, where substitutions have occurred.
*Critical Care Note
Total Time (30-74mins, 75-104mins- exclusive of procedures): Not Applicable
ED Attending Note
-
Portions of this chart may have been created with voice recognition software.� Occasional wrong word or��sound alike� substitutions may have occurred due to the inherent limitations of voice recognition software.
Discharge Plan
Departure
Patient Disposition: Home (Routine Discharge)
Date of Disposition: 08/15/24
Time of Disposition: 01:17
Patient with high blood pressure during this ER visit?: No
Discharge Problem:
Bronchiectasis
Instructions: Bronchiectasis in adults
Prescriptions:
New
doxycycline hyclate 100 mg capsule
100 mg PO BID Qty: 14 0RF
amoxicillin-pot clavulanate 875-125 mg tablet
1 tab PO BID Qty: 14 0RF
No Action
tobramycin in 0.225 % NaCl 300 MG/5 ML solution for nebulization
300 mg IH BID PRN (Reason: lung infection)
budesonide [Pulmicort] 0.5 MG/2 ML suspension for nebulization
0.5 mg IH R BID
amlodipine 2.5 mg tablet
2.5 mg PO DAILY
losartan-hydrochlorothiazide 100-25 mg tablet
1 tab PO DAILY
acetylcysteine 100 mg/mL (10 %) solution
2 mg inhalation BID
ipratropium bromide 0.02 % solution
0.5 mg inhalation BID
arformoterol 15 mcg/2 mL solution for nebulization
15 mcg INHALATION BID
polyethylene glycol 3350 [HealthyLax] 17 gram powder in packet
17 g PO DAILY
docusate sodium [Colace] 100 mg capsule
100 mg PO DAILY
aspirin 81 mg Tablet,Delayed Release (Dr/Ec)
81 mg PO DAILY
ascorbic acid (vitamin C) [Vitamin C] 500 mg Tablet
500 mg PO DAILY
Linzess 145 mcg capsule
145 mcg PO DAILY
cyanocobalamin (vitamin B-12) [Vitamin B-12] 5,000 mcg/mL Drops
5,000 mcg SUBLINGUAL DAILY
Black Seed Oil
4 ml PO BID
Clear Lungs 1,000 mg tablet
1,000 mg PO DAILY
Hair Growth Support
1 cap PO DAILY
Oregarest
1 cap PO DAILY
Probiotic
1 cap PO DAILY@1200
magnesium
140 mg PO HS
eliel d arco
1 dose PO DAILY
quercetin
1 cap PO BID
Patient Comments:
w/ Bromelin
vitamin A-vitamin C-vit E-min Tablet
1 tab PO DAILY
gabapentin 100 mg capsule
100 mg PO Q8HPRN PRN (Reason: post op pain) Qty: 20 0RF
tramadol 50 mg tablet
25 - 50 mg PO Q6HPRN PRN (Reason: severe pain/breakthrough pain) Qty: 5 0RF
acetaminophen [Tylenol Extra Strength] 500 mg tablet
1,000 mg PO Q6HPRN PRN (Reason: mild pain) Qty: 1 0RF
ondansetron 4 mg tablet,disintegrating
4 mg PO Q8HPRN PRN (Reason: nausea/vomiting) Qty: 5 0RF
Referrals:
Shannan Escobar MD [Family Provider] -
Activity Restrictions/Additional Instructions:
Please return for any worsening symptoms.
You may return at any time if you have further concerns.
Please follow up with your doctor at the first available appointment, preferably this week.
Thank you for choosing [facility].
Interventions
Interventions:
*Risk Screen - Suicide Last Done: 08/14/24 21:49
*General Assessment Last Done: 08/14/24 22:50
*Neglect/Abuse Screening Last Done: 08/14/24 21:49
*ED- Fall Risk Assessment Last Done: 08/14/24 21:49
*ED COVID-19 Vaccine History Last Done: 08/14/24 21:49
ED- Pulmonary Assessment Last Done: 08/14/24 23:05
Discharge Date and Time
Print Language: WALLISIAN
[2024-08-14 23:58] VITALS: BP 153/71
[2024-08-14] MEDS: AUGMENTIN 875 MG/125 MG 1 TABLET PO (23:59)
[2024-08-14] MEDS: VIBRAMYCIN 100 MG PO (23:59)
[2024-08-15] VITALS: BP 147/61
[2024-08-15 01:11] VITALS: BP 149/62
== END 2024-08-15 01:34 | disposition home or self-care (01) ==
LOC: EMR 21:46
PROVIDERS: EMERGENCY PHYSICIAN Student in an Organized Health Care Education/Training Program; FAMILY PHYSICIAN Family Medicine
DX: J47.9 Bronchiectasis, uncomplicated (principal); I10 Essential (primary) hypertension; J44.89 Other specified chronic obstructive pulmonary disease
CPT/HCPCS: 99284; 71046; 71250; 80053; 84484; 85025; 93005

== ENCOUNTER 2024-08-17 12:34 | Inpatient (IN) | payer OTHER, SELFPAY ==
[2024-08-17] VITALS (9 sets, daily range): BP systolic 120–175; BP diastolic 57–76; BMI 24.1; BMI 24.0
--- NOTE | 2024-08-17 06:21 | ED.GENMED ---
History of Present Illness
General
Chief Complaint: Cough
Source: patient
Exam Limitations: none
Time Seen by Provider: 08/17/24 06:11
History of Present Illness
History of Present Illness:
83-year-old female with history of bronchiectasis presents for reevaluation. She was here 2 days ago for increased cough and shortness of breath. She has been on oral antibiotics secondary to presumed pneumonia. 2 days ago she received a CT scan
of her chest which demonstrates chronic bronchiectasis finding as well as right lower lobe pneumonia. She was switched to azithromycin and doxycycline. She is not improving. She notes a higher temperature than normal. No swelling in the legs.
She denies hemoptysis and does note slight production currently.
Past History
Past History
ED Past Medical History: Asthma, COPD, HTN and Other (Bronchiectasis, UTi, Kidney cyst, OA)
ED Past Surgical History: Orthopedic (right and left hip replacement)
Social History
Tobacco: Non-smoker
Alcohol: None
Personal:
Living: alone
Phy Exam
Physical Exam
Physical Exam:
General: Well-appearing female no acute respiratory distress
HEENT: Normocephalic atraumatic
Heart: Regular rate and rhythm
Lungs: Coarse with rales bilaterally right greater than the left
Extremities: No cyanosis or edema
Skin: Warm no rash
Course
Orders/Labs/Results
Orders:
Orders
08/17/24 07:58
Complete Blood Count/With Diff Urgent
Comprehensive Metabolic Panel Urgent
Lactic Acid Q4H
Comment: CANCEL 2nd LACTIC ACID IF 1st LACTIC ACID IS LESS THAN 2
Blood Culture Q30M
JOSÉ Source: Blood/Venous
Specimen Description:
Blood Culture Q30M
JOSÉ Source: Blood/Venous
Specimen Description:
08/17/24 10:09
Cefepime HCl [Maxipime] 1,000 mg IV NOW STA
Vancomycin [Vancocin] 1,500 mg 0.9% Sodium Chloride 500 ml [Nss] 500 ml IV NOW
08/17/24 10:30
Lactic Acid Q4H
Comment: CANCEL 2nd LACTIC ACID IF 1st LACTIC ACID IS LESS THAN 2
Abnormal Lab Results
08/17/24
07:58
RBC 4.04 L 10^6/uL
(4.20-5.40)
Hgb 11.8 L g/dL
(12.0-16.0)
Hct 35.0 L %
(37.0-47.0)
Absolute Lymphs (auto) 0.9 L 10^3/uL
(1.2-3.4)
Neutrophils % 77.1 H %
(42.2-75.2)
Lymphocytes % 12.7 L %
(20.5-51.1)
Creatinine 0.5 L mg/dL
(0.6-1.0)
Glucose 112 H mg/dl
(70-99)
08/17/24 07:58
08/17/24 07:58
Vital Signs
Initial and Last Documented VS:
Initial Vital Signs
Temp Pulse Resp BP Pulse Ox
98.7 F 86 22 120/76 96
08/17/24 04:37 08/17/24 04:37 08/17/24 04:37 08/17/24 04:37 08/17/24 04:37
Last Documented Vital Signs
Temp Pulse Resp BP Pulse Ox
98.7 F 86 22 120/76 94
08/17/24 04:37 08/17/24 04:37 08/17/24 04:37 08/17/24 04:37 08/17/24 06:07
MDM/Problems Addressed
Differential Diagnosis Includes:
Patient with known right lower lobe pneumonia and history of bronchiectasis worsening on oral antibiotics. Subjectively she complains of shortness of breath while sitting there resting she is 94% on room air. I reviewed CAT scan from 2 days ago.
Patient was offered admission 2 days ago however she declined. She feels at this time she wants admission.
*Critical Care Note
Total Time (30-74mins, 75-104mins- exclusive of procedures): Not Applicable
Update Note
Update Note:
Labs reviewed. Patient worsening with symptoms despite outpatient treatment. She is failing oral antibiotics. No pneumonia on CT scan 2 days ago. Vancomycin and cefepime ordered. Will admit to hospice
ED Attending Note
-
Portions of this chart may have been created with voice recognition software.� Occasional wrong word or��sound alike� substitutions may have occurred due to the inherent limitations of voice recognition software.
Discharge Plan
Departure
Patient Disposition: Admit
Date of Disposition: 08/17/24
Time of Disposition: 10:12
Presentation/result/management discussed w/ accepting MD/DO: Hospitalist
Discharge Problem:
Pneumonia
Prescriptions:
No Action
tobramycin in 0.225 % NaCl 300 MG/5 ML solution for nebulization
300 mg IH BID PRN (Reason: lung infection)
losartan-hydrochlorothiazide 100-25 mg tablet
1 tab PO DAILY
ipratropium bromide 0.02 % solution
0.5 mg inhalation BID
arformoterol 15 mcg/2 mL solution for nebulization
15 mcg INHALATION BID
polyethylene glycol 3350 [HealthyLax] 17 gram powder in packet
17 g PO DAILY
ascorbic acid (vitamin C) [Vitamin C] 500 mg Tablet
500 mg PO DAILY
cyanocobalamin (vitamin B-12) [Vitamin B-12] 5,000 mcg/mL Drops
5,000 mcg SUBLINGUAL DAILY
Black Seed Oil
4 ml PO BID
Clear Lungs 1,000 mg tablet
1,000 mg PO DAILY
Hair Growth Support
1 cap PO DAILY
Oregarest
1 cap PO DAILY
Probiotic
1 cap PO DAILY@1200
magnesium
140 mg PO HS
eliel d arco
1 dose PO DAILY
quercetin
1 cap PO BID
Patient Comments:
w/ Bromelin
vitamin A-vitamin C-vit E-min Tablet
1 tab PO DAILY
tramadol 50 mg tablet
25 - 50 mg PO Q6HPRN PRN (Reason: severe pain/breakthrough pain) Qty: 5 0RF
acetaminophen [Tylenol Extra Strength] 500 mg tablet
1,000 mg PO Q6HPRN PRN (Reason: mild pain) Qty: 1 0RF
Amitiza
24 mcg PO BID
rosuvastatin 5 mg Tablet
5 mg PO Q48H
albuterol-budesonide
1 dose inhalation BID
pantoprazole
40 mg PO DAILY
Referrals:
Shannan Escobar MD [Family Provider]
Interventions
Interventions:
*Risk Screen - Suicide Last Done: 08/17/24 04:37
*General Assessment Last Done: 08/17/24 06:07
*Neglect/Abuse Screening Last Done: 08/17/24 06:07
*ED- Fall Risk Assessment Last Done: 08/17/24 06:07
*ED COVID-19 Vaccine History Last Done: 08/17/24 06:07
ED- Pulmonary Assessment Last Done: 08/17/24 06:07
Discharge Date and Time
Print Language: MALAGASY
[2024-08-17 08:14] LABS: % Basophils 0.4 % (0-2); % Eosinophils 2.2 % (0-6); % Immature Granulocytes 0.3 % (0-0.5); % Lymphocytes 12.7 % (20.5-51.1); % Monocytes 7.3 % (1.7-9.3); % Neutrophils 77.1 % (42.2-75.2); Absolute Eosinophils 0.2 10^3/uL (0-0.7); Absolute Lymphocytes 0.9 10^3/uL (1.2-3.4); Absolute Monocytes 0.5 10^3/uL (0.1-0.6); Absolute Neutrophils 5.6 10^3/uL (1.4-6.5); Hemoglobin 11.8 g/dL (12.0-16.0); Mean Corp Hgb Conc. 33.7 g/dL (33.0-37.0); Mean Corpuscular Hgb 29.2 pg (27.0-31.0); Mean Corpuscular Volume 86.6 fL (81.0-99.0); Mean Platelet Volume 9.3 fL (7.4-10.4); Nucleated Red Blood Cells % 0 %; Platelet Count 239 10^3/uL (130-400); Red Blood Cell Count 4.04 10^6/uL (4.20-5.40); Red Cell Dist. Width 12.8 % (11.5-14.5); White Blood Cell Count 7.2 10^3/uL (4.8-10.8)
[2024-08-17 08:49] LABS: ALT (SGPT) 16 U/L (0-35); AST (SGOT) 21 U/L (14-36); Alkaline Phosphatase 119 U/L (38-126); Blood Urea Nitrogen 11 mg/dl (7-17); Calcium 9.6 mg/dl (8.4-10.2); Carbon Dioxide 25 mmol/L (22-30); Chloride 104 mmol/L (98-107); Estimated Creatinine Clearance 64 ml/min; Glucose 112 mg/dl (70-99); Potassium 3.8 mmol/L (3.5-5.1); Sodium 136 mmol/L (135-145); Total Bilirubin 0.4 mg/dl (0.2-1.3); Total Protein 6.7 g/dl (6.3-8.2); eGFR > 60.00
[2024-08-17] MEDS: MAXIPIME 1000 MG IV ×2 (10:20→17:39)
--- NOTE | 2024-08-17 11:06 | HPS.HSE ---
Family Physician
-
Family Physician: Shannan Escobar
Chief Complaint
-
Coughing
History of Present Illness
Patient is a pleasant 83 years old with history of bronchiectasis, hypertension who came to the ER with increased coughing and shortness of breath.
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
2 days ago patient came to the ER and offered admission but she preferred to go home.
Came back today with worsening coughing and shortness of breath and low-grade fever, CT scan done in the ER 2 days ago shows:
Marked bronchiectasis again seen, particularly within the right middle lobe and lingula, raises concern for chronic mycobacterial infection.
Tiny bilateral centrilobular nodular and groundglass opacities, particularly at the lung bases, most likely on an inflammatory/infectious basis.
Patient was started on cefepime and vancomycin in the ER.
Patient seen and examined at bedside, denies any chest pain still with shortness of breath coughing more at night, no abdominal pain, no nausea, no vomiting, no diarrhea or constipation.
Medical History
Past Medical History
Past Medical History: Reports HTN and Other
Additional Past Medical History:
Bronchiectasis
Past Surgical History: Reports Cholecystectomy
Social History
Tobacco: Non-smoker
Alcohol: None
Personal:
Living: Alone
Family History
Family History: Not pertinent
Allergies / Home Medications
Allergies reflects when Allergies were last updated in [employer].
Home Medications with original date entered in [employer]
Allergy/Medication List:
Allergies
Allergy/AdvReac Type Severity Reaction Status Date / Time
neomycin Allergy Inflammatio Verified 08/17/24 04:36
n
Sulfa (Sulfonamide Allergy Rash Verified 08/17/24 04:36
Antibiotics)
Opiods AdvReac Bronchaicti Uncoded 08/17/24 04:36
sis
Home Medications
losartan 100 mg-hydrochlorothiazide 25 mg tablet 1 tab PO DAILY Blood Pressure 09/13/23
Clear Lungs 1,000 mg PO DAILY 01/19/24
Lactobac no.2-Bifidobac no.1-S. thermo 112.5 billion cell capsule (Visbiome) 1 cap PO DAILY ##0 01/19/24
Oregarest 1 cap PO DAILY 01/19/24
arformoterol 15 mcg/2 mL solution for nebulization 15 mcg inhalation R BID 01/19/24
ascorbic acid (vitamin C) 500 mg tablet (Vitamin C) 500 mg PO DAILY 01/19/24
black seed 4.5 gram/5 mL oral oil 4.5 g PO DAILY ##0 01/19/24
cyanocobalamin (vitamin B-12) 5,000 mcg/mL sublingual drops (Vitamin B-12) 5,000 mcg PO DAILY 01/19/24
ipratropium bromide 0.02 % solution for inhalation 0.5 mg inhalation R BID 01/19/24
magnesium oxide 140 mg capsule 140 mg PO HS ##0 01/19/24
mmuubpnsgfjn-jrxp-aqrieykb-folic acid 400 mcg-biotin 100 mcg tablet 1 tab PO DAILY ##0 01/19/24
eliel d arco 1 dose PO DAILY 01/19/24
polyethylene glycol 3350 17 gram oral powder packet (HealthyLax) 25.5 g PO DAILY 01/19/24
vitamin A-vitamin C-vit E-min tablet 1 tab PO DAILY 01/19/24
vitamin C 500 mg-quercetin 225 mg-bioflavonoids, citrus 33 mg capsule (Quercetin Complex) 1 cap PO DAILY ##0 01/19/24
albuterol sulfate 2.5 mg/3 mL (0.083 %) solution for nebulization 2.5 mg inhalation R BID 08/17/24
albuterol sulfate 90 mcg/actuation aerosol inhaler 2 puff inhalation R Q6HPRN PRN SOB 08/17/24
immun glob G 4 gram/20 mL(20 %)-prol-IgA 0-50 mcg/mL subcutaneous soln (Hizentra) 8,000 mg SC QWEEK 08/17/24
lubiprostone 24 mcg capsule (Amitiza) 24 mcg PO BID 08/17/24
pantoprazole 40 mg tablet,delayed release (Protonix) 40 mg PO DAILY 08/17/24
rosuvastatin 5 mg tablet 5 mg PO Q48H 08/17/24
Review of Systems
-
A 12 point ROS was completed and negative except as noted: Yes
Constitutional: Reports Fever and Fatigue; Denies Weight Gain, Weight Loss or Sleep Disturbance
EENT: Denies Tearing, Sore Throat, Mouth Pain, Mouth Swelling or Runny Nose
Respiratory: Reports Cough and Trouble Breathing; Denies Hemoptysis
Cardiac: Denies Chest Pain, Diaphoresis, Palpitations or Syncope
Abdomen/GI: Denies Abdominal Pain, Nausea, Vomiting, Diarrhea, Constipated, Bloody Stools or Black Stools
: Denies Dysuria, Frequency, Flank Pain, Incontinence, Difficulty Voiding, Urgency, Bleeding or Dark Urine
Musculoskeletal: Denies Joint Pain, Joint Swelling, Muscle Pain, Muscle Stiffness or Edema
Skin: Denies Itching or Rash
Neurological: Denies Dizzy, Headache, Weakness or Numbness
Endocrine: Denies Polyuria, Polydipsia or Temp Intolerance
Hematologic/Lymphatic: Denies Bleeding, Swollen Glands or Bruising
Psych: Reports Calm; Denies Depression, Anxiety or Panic Disorder
Physical Exam
Vital Signs
Vital Signs
Temp Pulse Resp BP Pulse Ox
98.7 F 80 24 145/65 94
08/17/24 04:37 08/17/24 09:30 08/17/24 09:30 08/17/24 09:00 08/17/24 06:07
Physical Exam
General: Well Developed, Well Nourished, No Apparent Distress, Comfortable and Good Appetite; No Pain, Chills or Sweats
HEENT: NormoCephalic, Moist mucous membranes, Atraumatic, Good Dentition, PERRLA, Nose Appears Normal and Ears Appear Normal
Respiratory: Rales and Rhonchi
Cardiac: S1/S2 and Regular Rhythm
Breast: Deferred by me
GI: Soft, Non Tender, Non Distended and Normal Bowel Sounds
Genito-urinary: Deferred by me
Musculoskeletal: No Clubbing, No Cyanosis and No Edema
Skin: Warm; No Rash, Jaundice, Ulcers, Lesions or Decubitus Ulcers
Neuro: Awake, Alert, Oriented, AO x 3, No Motor Deficits, Nonfocal/grossly intact and Cranial Nerves Intact
Hematologic/Lymphatic: No Lymphadenopathy
Psych: Calm
Laboratory Results
-
08/17/24 07:58
08/17/24 07:58
Laboratory Results
Lactic Acid 1.0 mmol/L (0.7-2.0) 08/17/24 07:58
Total Bilirubin 0.4 mg/dl (0.2-1.3) 08/17/24 07:58
AST 21 U/L (14-36) 08/17/24 07:58
ALT 16 U/L (0-35) 08/17/24 07:58
Alkaline Phosphatase 119 U/L (38-126) 08/17/24 07:58
Data Reviewed
-
Diagnostic Radiology: Report Reviewed by me
CT Scan: Report Reviewed by me
Medical Tests (Nuc Med, Echo, EKG etc): Report Reviewed by me
Lab Data: Labs Reviewed by me
Old Records: Reviewed
Impression/Plan
-
IMPRESSION:
Patient is a pleasant 83 years old with history of bronchiectasis, hypertension who came to the ER with increased coughing and shortness of breath.was here 2 days ago and offered admission but she preferred to go home.
Came back with worsening coughing and shortness of breath and low-grade fever, CT scan done in the ER 2 days ago shows: Marked bronchiectasis again seen, particularly within the right middle lobe and lingula, raises concern for chronic
mycobacterial infection. Patient was started on cefepime and vancomycin in the ER.
Assessment/plan:
Acute bronchiectasis/pneumonia
Patient was prolonged history of bronchiectasis.
For last 8-month was on and off antibiotics.
Recent sputum culture as outpatient came back positive for Pseudomonas.
Started on cefepime/vancomycin in the ER which we will continue.
Continue home inhalers.
Add Mucomyst
No leukocytosis, no fever documented, no hypoxia-lactic acid pending.
Sputum culture pending
Pulmonology consult
Hypertension.
Continue home medication
CODE STATUS: Full code
DVT prophylaxis: Lovenox
Diet: Regular diet
Total time spent on today's encounter was 75 minutes which included time spent in counseling the patient/family regarding diagnosis and treatment plan as listed above, goals of care, and symptom management. Case was discussed with nursing staff,
specialists, and care coordinators/case management. All labs and imaging personally reviewed by me. Remainder the time spent in detailed review of previous records, lab data, imaging, and other medical provider documentation.
--- NOTE | 2024-08-17 11:18 | PHA.VAN.IN ---
Assessment
- Assessment
Renal Function: Appears similar to baseline
Concomitant Antimicrobials: cefepime
AUC Dosing Plan
- Dosing Variables
Dosing Weight (kg): 64
Dosing CrCl (ml/min): 64
Vd coefficient (L/kg): 0.7
- Empiric Dosing
Initial / Loading Dose: 1500mg - administration pending
Maintenance Regimen: Vanc 1250mg Q24H starting 08/18 599
Estimated AUC (mcg*h/mL): 506
Estimated Peak (mcg*h/mL): 37
Estimated Trough (mcg/ml): 10.2
Estimated Half Life (H): 12
- Monitoring
No levels ordered at this time: consider levels in next few days
MRSA Screen: Ordered per protocol
Pharmacokinetics Vancomycin I
- -
Patient Age: 83
Patient Sex: Female
Vancomycin Day #: 1
Indication: Pulmonary/Respiratory
Requesting Provider: Dr. Do
Pertinent Antimicrobial Allergies:
neomycin eye drops - inflammation
sulfonamide antibiotics - rash
Height / Weight:
Height 5 ft 4 in
Actual Weight 63.7 kg
Pertinent Past Medical History: bronchiectasis
- Vital Signs / Lab Results
Temp Pulse Resp BP Pulse Ox
98.7 F 80 24 145/65 94
08/17/24 04:37 08/17/24 09:30 08/17/24 09:30 08/17/24 09:00 08/17/24 06:07
Lab Results - Hematology
08/17/24
07:58
WBC 7.2
Lab Results - Chemistry
08/17/24
07:58
BUN 11
Creatinine 0.5 L
Estimated Creat Clear 64
Albumin 4.0
08/17/24
07:58
Lactic Acid 1.0
[2024-08-17] MEDS: VANCOCIN 530 MG IV (11:27)
[2024-08-17] MEDS: ORETIC 25 MG PO (14:02)
[2024-08-17] MEDS: COZAAR 100 MG PO (14:02)
[2024-08-17] MEDS: PROTONIX 40 MG PO (14:03)
--- NOTE | 2024-08-17 14:40 | CON.PUL ---
Consultation
Consultation Request
Date/Time Consultation Requested: 08/17
Date/Time Consultation Performed: 08/17
Reason for Consultation: Bronchiectasis
Medical History
-
History of Present Illness:
History obtained from the patient, reviewing hospital records, outpatient records. Patient is an 83-year-old female with complex medical history including bronchiectasis diagnosed around year 1999, was being followed in the bronchiectasis clinic at
[place] for many years, underwent bronchoscopy there then transition care to Dr. Olivia, then Dr. Barrett, and now Dr. Porter since Apr 2024. She also sees infectious disease at [facility] an immunology, recently started on subcutaneous IVIG injections, has
received 3 doses. Patient states she has had chronic issues for the past 6 to 8 months but recently has worsened over the past week. Patient was evaluated in the ED 08/14/2024. She was given amoxicillin, doxycycline. CT she had CT chest. Patient
was recommended to follow-up with her denture model maker. She return to the ED 08/17/2024 with worsening cough. She also notes questionable fevers. She denies hemoptysis, chest pain, lightheadedness, dizziness, dysphagia, choking. Infectious he states
she is otherwise relatively healthy. Overall weight appears to be stable. We are asked to comment on her pulmonary process
.
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 Bilateral hip surgery. History of osteoarthritis,
hypertension, asthma
Reviewed records from [place], normal alpha-1 antitrypsin level, normal immunoglobulin levels back in 2016, normal KAYA, rheumatoid factor, CCP antibody
PFT normal 2019
Past Medical History
Past Medical History: None (See above)
Past Surgical History: None (See above)
Social History
Tobacco: Non-smoker
Alcohol: None
Drug: None
Personal:
Living: Alone
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
Family History
Family History: Other (Father from pneumonia, heart attack at 61, also had interstitial disease. Mother from stroke. 1 brother with history of valve replacement. 1 daughter healthy. )
Allergies / Home Medications
Allergies
Allergy/AdvReac Type Severity Reaction Status Date / Time
neomycin Allergy Inflammatio Verified 08/17/24 04:36
n
Sulfa (Sulfonamide Allergy Rash Verified 08/17/24 04:36
Antibiotics)
Opiods AdvReac Bronchaicti Uncoded 08/17/24 04:36
sis
Home Medications
�Medication �Instructions �Recorded �Confirmed �Last Taken �Type
losartan 100 1 tab PO DAILY Blood Pressure 09/13/23 08/17/24 01/19/24 07:00 History
mg-hydrochlorothiazide 25 mg tablet
Clear Lungs 1,000 mg PO DAILY 01/19/24 08/17/24 3 Days Ago History
~01/17/24
Lactobac no.2-Bifidobac no.1-S. 1 cap PO DAILY ##0 01/19/24 08/17/24 3 Days Ago History
thermo 112.5 billion cell capsule ~01/17/24
(Visbiome)
Oregarest 1 cap PO DAILY 01/19/24 08/17/24 01/16/24 History
arformoterol 15 mcg/2 mL solution 15 mcg inhalation R BID 01/19/24 08/17/24 01/20/24 06:00 History
for nebulization
ascorbic acid (vitamin C) 500 mg 500 mg PO DAILY 01/19/24 08/17/24 01/18/24 History
tablet (Vitamin C)
black seed 4.5 gram/5 mL oral oil 4.5 g PO DAILY ##0 01/19/24 08/17/24 01/19/24 07:00 History
ipratropium bromide 0.02 % 0.5 mg inhalation R BID 01/19/24 08/17/24 01/20/24 07:00 History
solution for inhalation
magnesium oxide 140 mg capsule 140 mg PO HS ##0 01/19/24 08/17/24 01/19/24 18:00 History
kxhmiiduykbj-qets-onjtzshk-folic 1 tab PO DAILY ##0 01/19/24 08/17/24 01/16/24 History
acid 400 mcg-biotin 100 mcg tablet
eliel d arco 1 dose PO DAILY 01/19/24 08/17/24 01/19/24 12:00 History
polyethylene glycol 3350 17 gram 25.5 g PO DAILY 01/19/24 08/17/24 01/19/24 10:00 History
oral powder packet (HealthyLax)
vitamin A-vitamin C-vit E-min 1 tab PO DAILY 01/19/24 08/17/24 01/16/24 History
tablet
vitamin C 500 mg-quercetin 225 1 cap PO DAILY ##0 01/19/24 08/17/24 3 Days Ago History
mg-bioflavonoids, citrus 33 mg ~01/17/24
capsule (Quercetin Complex)
albuterol sulfate 2.5 mg/3 mL 2.5 mg inhalation R BID 08/17/24 08/17/24 Unknown History
(0.083 %) solution for nebulization
albuterol sulfate 90 mcg/actuation 2 puff inhalation R Q6HPRN PRN SOB 08/17/24 08/17/24 Unknown History
aerosol inhaler
cyanocobalamin (vitamin B-12) 500 500 mcg PO DAILY 08/17/24 08/17/24 Unknown History
mcg sublingual tablet
immun glob G 4 gram/20 mL(20 8,000 mg SC QWEEK 08/17/24 08/17/24 Unknown History
%)-prol-IgA 0-50 mcg/mL
subcutaneous soln (Hizentra)
lubiprostone 24 mcg capsule 24 mcg PO BID 08/17/24 08/17/24 Unknown History
(Amitiza)
pantoprazole 40 mg tablet,delayed 40 mg PO DAILY 08/17/24 08/17/24 Unknown History
release (Protonix)
rosuvastatin 5 mg tablet 5 mg PO Q48H 08/17/24 08/17/24 Unknown History
Review of Systems
-
All other systems: Negative unless noted
Vitals / Labs / Diagnostic Testing
Vital Signs
Temp Pulse Resp BP Pulse Ox
98 F 76 18 143/57 95
08/17/24 13:15 08/17/24 14:02 08/17/24 13:15 08/17/24 14:02 08/17/24 13:15
Lab Data
08/17/24 07:58
08/17/24 07:58
Diagnostic Testing:
Physical Exam
-
HEENT: Normocephalic
Cardiovascular: S1/S2, Regular Rhythm, Murmur (2/6 SM), Peripheral Edema (n) and Calf Tenderness (n)
Respiratory: Wheeze (few), Rales (few), Rhonchi (few), Non-Labored Respirations and Other (Scattered inspiratory squeaks)
GI: Soft, Non Distended and Non Tender
Neurology: Awake, Alert and No Motor Deficits (Able to sit up without assistance)
Skin: Good Color and Other (No clubbing, cyanosis)
General: Comfortable
Assessment
-
83-year-old female with history of bronchiectasis diagnosed in 1999, history of Pseudomonas, Aspergillus via bronchoscopy, sputum culture requiring multiple courses of antibiotics throughout the year including azithromycin, tobramycin nebs, recently
treated with Augmentin and doxycycline with worsening symptoms. She is now here for acute pneumonitis with bronchiectasis
Acute bronchitis, progressive
Cannot rule out pneumonitis given interstitial process
Bilateral bronchiolitis, bronchiectasis
History of bronchiectasis diagnosed 1999
CF carrier
Bronchoscopy x 3, last 2023 (Dr. Barrett)
Treated with intermittent tobramycin, Levaquin, azithromycin
Follows infectious disease at [facility]
Follows immunology, started on subcutaneous IVIG July 2024
Conditions present prior to admission
Hypertension
History of asthma
Chronic back pain
Plan/recommendations
At this time, patient appears to be nontoxic
Extremely complex pulmonary history dating back 25 years ago
Multiple providers at [place], , [facility], [place]
Sees pulmonary, immunology, infectious disease
Last bronchoscopy 04/28/2023
Moving forward
It is difficult to tell what is acute and what is chronic
Would try to obtain sputum culture
Sent for AFB, fungus and bacteria
Given hypogammaglobulinemia, will need to follow culture data
Strongly recommended the patient revisit immunology and infectious diseases outpatient
Patient empirically takes Levaquin, tobramycin nebs and Zithromax
Given bronchiectasis, would need to better identify bug burden
Patient check sputum culture frequently as outpatient
Reviewed records from 2022
PFT normal
Autoimmune workup, alpha-1 levels normal
Check sputum culture
For now we will continue with vancomycin, cefepime
Discussed potential need for bronchoscopy depending on clinical course but this can be determined as outpatient
Would prefer 3% saline at home
Patient cannot tolerate vest therapy due to back pain
She has an IPV device at home, just tarted using
She just started subcutaneous IVIG 3 weeks ago, obtains injection once a week
Will hold on steroids for now
Reviewed with patient at length
Complex decision making process
Will follow
[2024-08-17] MEDS: DUONEB 3 ML INH ×2 (15:27→19:54)
[2024-08-17] MEDS: MUCOMYST 10% 2 ML INH (15:28)
[2024-08-17] MEDS: MIRALAX 17 GRAMS PO (16:35)
[2024-08-17] MEDS: STERILE WATER FOR INJECTION 10 ML IV (17:38)
[2024-08-17] MEDS: LOVENOX 40 MG SC (17:38)
[2024-08-17] MEDS: SODIUM CHLORIDE 3% FOR INHALATION 1 VIAL INH (19:54)
[2024-08-17] MEDS: MAG-TAB SR 84 MG PO (21:24)
[2024-08-17] MEDS: XANAX 0.125 MG PO (21:24)
[2024-08-18] MEDS: MAXIPIME 1000 MG IV ×3 (01:04→17:30)
[2024-08-18] MEDS: STERILE WATER FOR INJECTION 10 ML IV ×3 (01:04→17:30)
[2024-08-18 02:58] VITALS: BP 119/57
[2024-08-18] MEDS: VENTOLIN NEBULES 2.5 MG INH (04:34)
[2024-08-18] MEDS: VANCOCIN 275 MG IV (06:01)
[2024-08-18 07:05] VITALS: BP 129/64
[2024-08-18] MEDS: DUONEB 3 ML INH ×4 (07:31→19:43)
[2024-08-18] MEDS: SODIUM CHLORIDE 3% FOR INHALATION 1 VIAL INH ×2 (07:31→19:43)
[2024-08-18 08:55] LABS: % Eosinophils 3.1 % (0-6); % Immature Granulocytes 0.2 % (0-0.5); % Monocytes 9.4 % (1.7-9.3); % Neutrophils 62.3 % (42.2-75.2); Absolute Basophils 0.1 10^3/uL (0-0.2); Absolute Eosinophils 0.2 10^3/uL (0-0.7); Absolute Lymphocytes 1.2 10^3/uL (1.2-3.4); Absolute Monocytes 0.5 10^3/uL (0.1-0.6); Mean Corp Hgb Conc. 33.3 g/dL (33.0-37.0); Mean Platelet Volume 9.7 fL (7.4-10.4); Nucleated Red Blood Cells % 0 %; Platelet Count 260 10^3/uL (130-400); Red Blood Cell Count 4.14 10^6/uL (4.20-5.40); Red Cell Dist. Width 12.9 % (11.5-14.5); White Blood Cell Count 4.8 10^3/uL (4.8-10.8)
[2024-08-18 09:09] LABS: NT-proBNP 84.5 pg/ml
[2024-08-18 09:42] LABS: Blood Urea Nitrogen 12 mg/dl (7-17); Calcium 9.1 mg/dl (8.4-10.2); Carbon Dioxide 27 mmol/L (22-30); Chloride 104 mmol/L (98-107); Estimated Creatinine Clearance 64 ml/min; Glucose 93 mg/dl (70-99); Potassium 3.8 mmol/L (3.5-5.1); Sodium 137 mmol/L (135-145); eGFR > 60.00
--- NOTE | 2024-08-18 09:46 | PHA.VAN.FU ---
Vancomycin Assessment / Plan
- Assessment
Renal Function: Stable
WBC's are: WNL
In the past 24 hrs, patient has been: Afebrile
Concomitant Antimicrobials: Cefepime
- Dosing Plan
Continue: Vanc 1250mg Q24H
- Monitoring Plan
No level(s) ordered at this time: consider levels in next few days
- Follow Up
Pharmacy will continue to follow.
Vancomycin Follow UP
- -
Patient Age: 83
Patient Sex: Female
Vancomycin Day #: 2
Indication: Pulmonary/Respiratory
Requesting Provider: Dr. Do
Pertinent Antimicrobial Allergies:
neomycin eye drops - inflammation
sulfonamide antibiotics - rash
Height / Weight:
Height 5 ft 4 in
Actual Weight 63.503 kg
Pertinent Past Medical History: bronchiectasis
- Vital Signs / Lab Results
Temp Pulse Resp BP Pulse Ox
98.1 F 70 16 129/64 93
08/18/24 07:05 08/18/24 07:34 08/18/24 07:34 08/18/24 07:05 08/18/24 07:05
Lab Results - Hematology
08/17/24 08/18/24
07:58 07:50
WBC 7.2 4.8
Lab Results - Chemistry
08/17/24 08/18/24
07:58 07:50
BUN 11 12
Creatinine 0.5 L 0.6
Estimated Creat Clear 64 64
Albumin 4.0
08/17/24 08/17/24
07:58 10:30
Lactic Acid 1.0 Cancelled
Microbiology Results
08/17/24 07:58 Blood Culture - Preliminary
Blood/Venous No Growth in 24 hours- Final report to follow
08/17/24 07:58 Blood Culture - Preliminary
Blood/Venous No Growth in 24 hours- Final report to follow
[2024-08-18] MEDS: VITAMIN B-12 5000 MCG PO (09:51)
[2024-08-18] MEDS: VITAMIN C 500 MG PO (09:51)
[2024-08-18] MEDS: COZAAR 100 MG PO (09:51)
[2024-08-18] MEDS: VISBIOME 1 CAP PO (09:51)
[2024-08-18] MEDS: CRESTOR 5 MG PO (09:51)
[2024-08-18] MEDS: ORETIC 25 MG PO (09:51)
[2024-08-18] MEDS: PROTONIX 40 MG PO (09:51)
[2024-08-18] MEDS: ROBITUSSIN DM 10 ML PO ×2 (10:03→21:38)
[2024-08-18 11:00] VITALS: BP 132/72
--- NOTE | 2024-08-18 13:52 | W.PN.HOSP.TC ---
Today's Communication/Plan
-
Continue cefepime, discontinue Vanco
july in am
Assessment / Plan
Assessment / Plan
Impression:
Patient is a pleasant 83 years old with history of bronchiectasis, hypertension who came to the ER with increased coughing and shortness of breath.was here 2 days ago and offered admission but she preferred to go home.
Came back with worsening coughing and shortness of breath and low-grade fever, CT scan done in the ER 2 days ago shows: Marked bronchiectasis again seen, particularly within the right middle lobe and lingula, raises concern for chronic
mycobacterial infection. Patient was started on cefepime and vancomycin in the ER.
Pulmonology consulted.
Assessment/plan:
Acute bronchiectasis/pneumonia
Patient was prolonged history of bronchiectasis.
For last 8-month was on and off antibiotics.
Recent sputum culture as outpatient came back positive for Pseudomonas.
Started on cefepime/vancomycin in the ER which we will continue.
Continue home inhalers.
Add Mucomyst
No leukocytosis, no fever documented, no hypoxia-lactic acid pending.
Sputum culture pending
Pulmonology consulted
08/18
Overall coughing and shortness of breath improved.
MRSA screen negative, will discontinue vancomycin.
Hypertension.
Continue home medication
CODE STATUS: Full code
DVT prophylaxis: Lovenox
Diet: Regular diet
CODE STATUS: Full code
DVT prophylaxis: Lovenox
Diet: Regular diet
Family communication:
Disposition:
Total time spent on today's encounter was 65 minutes which included time spent in counseling the patient/family regarding diagnosis and treatment plan as listed above, goals of care, and symptom management. Case was discussed with nursing staff,
specialists, and care coordinators/case management. All labs and imaging personally reviewed by me. Remainder the time spent in detailed review of previous records, lab data, imaging, and other medical provider documentation.
Anticipated Discharge: Within 24 hours
Subjective/Interval History
-
Date of Service: August 18, 2024
Patient seen and examined at bedside, denies any chest pain, improved coughing and shortness of breath, no abdominal pain, no nausea, no vomiting, no diarrhea or constipation.
Objective Data
-
Labs:
Laboratory Results
08/18/24
07:50
WBC 4.8
Hgb 12.0
Hct 36.0 L
Plt Count 260
Sodium 137
Potassium 3.8
Chloride 104
Carbon Dioxide 27
BUN 12
Creatinine 0.6
Glucose 93
Calcium 9.1
Vital Signs:
Vital Signs
Temp Pulse Resp BP Pulse Ox
98.3 F 74 16 132/72 93
08/18/24 11:00 08/18/24 11:38 08/18/24 11:38 08/18/24 11:00 08/18/24 11:00
I&O
08/17/24 08/18/24 08/19/24
06:59 06:59 06:59
Intake Total 720 / 720
Balance 720 / 720
Physical Exam
-
General: Well Developed, Well Nourished, No Apparent Distress and Comfortable
HEENT: Normocephalic, Atraumatic, Moist Mucous Membranes, No Ptosis, PERRLA and Nose Appears Normal
Respiratory: Wheezes, Rales, Rhonchi, Crackles and Non Labored Respirations
Cardiac: Regular Rhythm and S1/S2
Breast: Deferred by me
GI: Soft, Nontender, Nondistended and Normal Bowel Sounds
Genito-urinary: No Costovertebral Tender
Musculoskeletal: No Clubbing, No Cyanosis and No Edema
Skin: Warm
Neuro: Awake, Alert, Oriented, AO x 3 and No Motor Deficits
Psych: Calm
Data Reviewed
-
Diagnostic Radiology: Image personally visualized and interpreted and Report Reviewed by me
CT Scan: Image personally visualized and interpreted and Report Reviewed by me
Ultrasound: Image personally visualized and interpreted and Report Reviewed by me
MRI: Image personally visualized and interpreted and Report Reviewed by me
Medical Tests (Nuc Med, Echo etc): Image personally visualized and interpreted and Report Reviewed by me
Labs: Labs Reviewed by me
Old Records: Reviewed
--- NOTE | 2024-08-18 14:20 | W.PN.PUL3 ---
Today's Communication / Plan
-
Antibiotics
DuoNebs
Nebulized 3%
Up OOB as tolerated
Encourage incentive spirometer use 10x per hour for at least 4 hrs a day
Start Tessalon Perles
Pulmonary service will continue to follow along
Assessment
-
83-year-old female with history of bronchiectasis diagnosed in 1999, history of Pseudomonas, Aspergillus via bronchoscopy, sputum culture requiring multiple courses of antibiotics throughout the year including azithromycin, tobramycin nebs, recently
treated with Augmentin and doxycycline with worsening symptoms. She is now here for acute pneumonitis with bronchiectasis
Acute bronchitis, progressive
Cannot rule out pneumonitis given interstitial process
Bilateral bronchiolitis, bronchiectasis
History of bronchiectasis diagnosed 1999
CF carrier
Bronchoscopy x 3, last 2023 (Dr. Barrett)
Treated with intermittent tobramycin, Levaquin, azithromycin
Follows infectious disease at [facility]
Follows immunology, started on subcutaneous IVIG July 2024
Conditions present prior to admission
Hypertension
History of asthma
Chronic back pain
Plan/recommendations
At this time, patient appears to be nontoxic
Extremely complex pulmonary history dating back 25 years ago
Multiple providers at [facility], , [facility], [place]
Sees pulmonary, immunology, infectious disease
Last bronchoscopy 04/28/2023
Moving forward
It is difficult to tell what is acute and what is chronic
Would try to obtain sputum culture
Sent for AFB, fungus and bacteria
Given hypogammaglobulinemia, will need to follow culture data
Strongly recommended the patient revisit immunology and infectious diseases outpatient
Patient empirically takes Levaquin, tobramycin nebs and Zithromax
Given bronchiectasis, would need to better identify bug burden
Patient check sputum culture frequently as outpatient
Reviewed records from 2022
PFT normal
Autoimmune workup, alpha-1 levels normal
Check sputum culture
For now we will continue with vancomycin, cefepime
Discussed potential need for bronchoscopy depending on clinical course but this can be determined as outpatient
I will add Ajay Mcgrath to help with her coughing spells
Would prefer 3% saline at home
Patient cannot tolerate vest therapy due to back pain
She has an IPV device at home, just tarted using
She just started subcutaneous IVIG 3 weeks ago, obtains injection once a week
Will hold on steroids for now
Reviewed with patient at length
Complex decision making process
Will follow
Patient seen and evaluated on 08/18/2024
Subjective Data
-
Date of Service:
Date of Service: August 18, 2024
Chief Complaint: Pulmonary Follow Up
Subjective:
Patient seen today at bedside. [place] weak this morning and still getting coughing spells. Currently denies chest pain.
Review of Systems
General: Other (Negative unless mentioned above)
Objective Data
Data Reviewed
Vital Signs / I&O / Oxygen:
Vital Signs
Temp Pulse Resp BP Pulse Ox
98.1 F 67 16 129/64 93
08/18/24 07:05 08/18/24 09:51 08/18/24 07:34 08/18/24 09:51 08/18/24 07:05
Intake and Output
08/17/24 08/18/24 08/19/24
06:59 06:59 06:59
Intake Total 720 / 720
Balance 720 / 720
SaO2 93
Physical Exam
General: Respiratory Distress (n), Comfortable and Chills (n)
HEENT: Normocephalic and Anicteric
Cardiovascular: S1-S2 and Peripheral Edema (n)
Respiratory: Wheeze (n), Crackles (Bilateral), Rhonchi (n), Non-Labored Respirations and Other (Inspiratory squeaks heard bilaterally)
GI: Soft, Non Distended, Non Tender and Normal Bowel Sounds
Neurology: AO x 3 and Tremors (n)
Skin: Warm, Dry, Cyanosis (n) and Jaundice (n)
Labs/Micro/Reports
Lab Data
08/18/24 07:50
08/18/24 07:50
Microbiology
08/17/24 07:58 Blood/Venous Blood Culture - Preliminary
No Growth in 24 hours- Final report to follow
08/17/24 07:58 Blood/Venous Blood Culture - Preliminary
No Growth in 24 hours- Final report to follow
[2024-08-18 15:00] VITALS: BP 127/67
[2024-08-18] MEDS: LOVENOX 40 MG SC (17:29)
[2024-08-18 19:10] VITALS: BP 132/61
[2024-08-18] MEDS: MAG-TAB SR PO (20:29)
[2024-08-18] MEDS: XANAX 0.125 MG PO (21:37)
[2024-08-18 23:17] VITALS: BP 119/65
[2024-08-19] MEDS: MAXIPIME 1000 MG IV ×3 (01:57→17:02)
[2024-08-19] MEDS: STERILE WATER FOR INJECTION 10 ML IV ×3 (01:57→17:02)
[2024-08-19] MEDS: ROBITUSSIN DM 10 ML PO ×2 (02:11→22:06)
[2024-08-19 03:26] VITALS: BP 132/65
[2024-08-19] MEDS: DUONEB 3 ML INH ×4 (07:21→20:03)
[2024-08-19] MEDS: SODIUM CHLORIDE 3% FOR INHALATION INH ×2 (07:21→07:25)
[2024-08-19] MEDS: VISBIOME 1 CAP PO (07:23)
[2024-08-19] MEDS: TESSALON PERLES 100 MG PO (07:23)
[2024-08-19] MEDS: VITAMIN B-12 5000 MCG PO (07:23)
[2024-08-19] MEDS: VITAMIN C 500 MG PO (07:25)
[2024-08-19] MEDS: ORETIC 25 MG PO (07:27)
[2024-08-19] MEDS: COZAAR 100 MG PO (07:27)
[2024-08-19] MEDS: PROTONIX 40 MG PO (07:27)
[2024-08-19] MEDS: MIRALAX 17 GRAMS PO (07:29)
[2024-08-19 07:41] VITALS: BP 122/71
[2024-08-19 08:00] LABS: Hematocrit 36.9 % (37.0-47.0); Hemoglobin 12.4 g/dL (12.0-16.0); Mean Corp Hgb Conc. 33.6 g/dL (33.0-37.0); Mean Corpuscular Hgb 29.1 pg (27.0-31.0); Mean Corpuscular Volume 86.6 fL (81.0-99.0); Mean Platelet Volume 9.6 fL (7.4-10.4); Platelet Count 283 10^3/uL (130-400); Red Blood Cell Count 4.26 10^6/uL (4.20-5.40); Red Cell Dist. Width 12.7 % (11.5-14.5); White Blood Cell Count 5.9 10^3/uL (4.8-10.8)
[2024-08-19 08:18] LABS: Blood Urea Nitrogen 18 mg/dl (7-17); Calcium 9.4 mg/dl (8.4-10.2); Carbon Dioxide 25 mmol/L (22-30); Chloride 103 mmol/L (98-107); Estimated Creatinine Clearance 64 ml/min; Glucose 106 mg/dl (70-99); Potassium 3.9 mmol/L (3.5-5.1); Sodium 136 mmol/L (135-145); eGFR > 60.00
--- NOTE | 2024-08-19 13:16 | W.PN.HOSP.TC ---
Today's Communication/Plan
-
Continue cefepime, pending final sputum sensitivity
Assessment / Plan
Assessment / Plan
Impression:
Patient is a pleasant 83 years old with history of bronchiectasis, hypertension who came to the ER with increased coughing and shortness of breath.was here 2 days ago and offered admission but she preferred to go home.
Came back with worsening coughing and shortness of breath and low-grade fever, CT scan done in the ER 2 days ago shows: Marked bronchiectasis again seen, particularly within the right middle lobe and lingula, raises concern for chronic
mycobacterial infection. Patient was started on cefepime and vancomycin in the ER.
Pulmonology consulted.
Assessment/plan:
Acute bronchiectasis/pneumonia
Patient was prolonged history of bronchiectasis.
For last 8-month was on and off antibiotics.
Recent sputum culture as outpatient came back positive for Pseudomonas.
Started on cefepime/vancomycin in the ER which we will continue.
Continue home inhalers.
Add Mucomyst
No leukocytosis, no fever documented, no hypoxia-lactic acid pending.
Sputum culture pending
Pulmonology consulted
08/18
Overall coughing and shortness of breath improved.
MRSA screen negative, will discontinue vancomycin.
08/19
Sputum culture positive for gram negative bacilli
Sputum culture from July 25 showed Pseudomonas
Continue cefepime, pending final sputum sensitivity
Hypertension.
Continue home medication
CODE STATUS: Full code
DVT prophylaxis: Lovenox
Diet: Regular diet
Disposition: Pending final sputum culture sensitivity, patient possibly discharge tomorrow her subcutaneous IVIG weekly injection due tomorrw.
Total time spent on today's encounter was 65 minutes which included time spent in counseling the patient/family regarding diagnosis and treatment plan as listed above, goals of care, and symptom management. Case was discussed with nursing staff,
specialists, and care coordinators/case management. All labs and imaging personally reviewed by me. Remainder the time spent in detailed review of previous records, lab data, imaging, and other medical provider documentation.
Anticipated Discharge: Within 24 hours
Subjective/Interval History
-
Date of Service: August 19, 2024
Patient seen and examined at bedside, denies any chest pain overall coughing shortness of breath improved, no abdominal pain, no nausea, no vomiting, no diarrhea or constipation.
Objective Data
-
Labs:
Laboratory Results
08/19/24
06:36
WBC 5.9
Hgb 12.4
Hct 36.9 L
Plt Count 283
Sodium 136
Potassium 3.9
Chloride 103
Carbon Dioxide 25
BUN 18 H
Creatinine 0.6
Glucose 106 H
Calcium 9.4
Vital Signs:
Vital Signs
Temp Pulse Resp BP Pulse Ox
98.1 F 77 16 122/71 95
08/19/24 07:41 08/19/24 11:04 08/19/24 11:04 08/19/24 07:41 08/19/24 07:41
I&O
08/18/24 08/19/24 08/20/24
06:59 06:59 06:59
Intake Total 720 / 720 630 / 630
Balance 720 / 720 630 / 630
Physical Exam
-
General: Well Developed, Well Nourished, No Apparent Distress and Comfortable
HEENT: Normocephalic, Atraumatic, Moist Mucous Membranes, No Ptosis, PERRLA and Nose Appears Normal
Respiratory: Wheezes, Rales, Rhonchi, Crackles and Non Labored Respirations
Cardiac: Regular Rhythm and S1/S2
Breast: Deferred by me
GI: Soft, Nontender, Nondistended and Normal Bowel Sounds
Genito-urinary: No Costovertebral Tender
Musculoskeletal: No Clubbing, No Cyanosis and No Edema
Skin: Warm
Neuro: Awake, Alert, Oriented, AO x 3 and No Motor Deficits
Psych: Calm
Data Reviewed
-
Diagnostic Radiology: Image personally visualized and interpreted and Report Reviewed by me
CT Scan: Image personally visualized and interpreted and Report Reviewed by me
Ultrasound: Image personally visualized and interpreted and Report Reviewed by me
MRI: Image personally visualized and interpreted and Report Reviewed by me
Medical Tests (Nuc Med, Echo etc): Image personally visualized and interpreted and Report Reviewed by me
Labs: Labs Reviewed by me
Old Records: Reviewed
--- NOTE | 2024-08-19 15:10 | W.PN.PUL3 ---
Today's Communication / Plan
-
Antibiotics
Follow-up sputum culture which is growing GNR with suspected Pseudomonas
ID consult to assist on which antibiotics to treat with as she has had an outpatient sputum culture on 07/25/2024 where 1 strain of Pseudomonas aeruginosa showed resistance to quinolones
DuoNebs with nebulized 3%
Acapella
Unable to do vest therapy given patient's complaint of back pain
Up OOB as tolerated
Encourage incentive spirometer use 10x per hour for at least 4 hrs a day
Continue Tessalon Perles
Pulmonary service will continue to follow along
Assessment
-
83-year-old female with history of bronchiectasis diagnosed in 1999, history of Pseudomonas, Aspergillus via bronchoscopy, sputum culture requiring multiple courses of antibiotics throughout the year including azithromycin, tobramycin nebs, recently
treated with Augmentin and doxycycline with worsening symptoms. She is now here for acute pneumonitis with bronchiectasis
Acute bronchitis, progressive with an acute bronchiectasis flare
Also concern for small airways disease given scattered subpleural nodular opacities and other widespread tree-in-bud nodule opacities
Bilateral bronchiolitis, bronchiectasis
History of bronchiectasis diagnosed 1999
CF carrier
Bronchoscopy x 3, last 2023 (Dr. Barrett)
Treated with intermittent tobramycin, Levaquin, azithromycin
Follows infectious disease at [facility]
Follows immunology, started on subcutaneous IVIG July 2024
Conditions present prior to admission
Hypertension
History of asthma
Chronic back pain
Plan/recommendations
At this time, patient appears to be nontoxic
Extremely complex pulmonary history dating back 25 years ago
Multiple providers at [facility], , [facility], [place]
Sees pulmonary, immunology, infectious disease
Last bronchoscopy 04/28/2023
Moving forward
It is difficult to tell what is acute and what is chronic
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
Sputum culture collected 08/17 is now growing GNR � follow-up species + sensitivities
Given hypogammaglobulinemia, will need to follow culture data
Strongly recommended the patient revisit immunology and infectious diseases outpatient
Patient empirically takes Levaquin, tobramycin nebs and Zithromax
Given bronchiectasis, would need to better identify bug burden
Patient recommend to check sputum culture frequently as an outpatient and to discuss this with ID
Patient is currently on cefepime but she is interested in going home tomorrow as she is supposed to get her IVIG infusion
- I told her that she likely will have to miss this infusion unfortunately
- IV Vanco discontinued given negative MRSA swab
- I will consult infectious disease here at to help assist us on how to best manage this acute episode of a suspected bronchiectasis flare
- Her recent outpatient sputum culture from 07/25/2024 had 2 strains of Pseudomonas aeruginosa, where 1 strain had resistance to ciprofloxacin, as well as intermediate sensitivity to Levaquin
- Hence, do not feel that it would be safe to send her home on any PO regimen for Pseudomonas, which means that she would either have to stay here in the hospital to continue treatment or obtain PICC line and go home to finish out her course
- Will have infectious disease weigh in to see what their opinion is
Reviewed records from 2022
PFT normal
Autoimmune workup, alpha-1 levels normal
Discussed potential need for bronchoscopy depending on clinical course but this can be determined as outpatient
Dr. Mancilla added Tessalon [place] to help reduce burden of her coughing spells
To help improve pulmonary toilet, continue with DuoNebs + nebulized 3% while hospitalized; also recommend Acapella
Unfortunately patient cannot tolerate vest therapy due to back pain
She has an IPV device at home, just started using
She just started subcutaneous IVIG 3 weeks ago, obtains injection once a week
Will hold on steroids for now
Reviewed with patient at length
Complex decision making process
Will follow
Total time spent today was 41 minutes for this encounter. Time includes reviewing laboratory test/imaging results, reviewing pertinent medical records, obtaining and reviewing medical history, performing an appropriate exam, ordering medications,
tests and procedures. Time also includes documentation of this encounter, coordinating patient care and communicating with other healthcare professionals. Total time does not include separately billed tests performed on this date of service.
Subjective Data
-
Date of Service:
Date of Service: August 19, 2024
Chief Complaint: Pulmonary Follow Up
Subjective:
Patient seen today at bedside (late note entry). She feels much better today, with increased energy and improved coughing. She currently denies OSORIO, shortness of breath, nausea, fevers or chills. Of note, sputum culture that was collected on
08/17/2024 is growing GNR.
Review of Systems
General: Other (Negative unless mentioned above)
Objective Data
Data Reviewed
Vital Signs / I&O / Oxygen:
Vital Signs
Temp Pulse Resp BP Pulse Ox
98.1 F 70 18 122/71 95
08/19/24 07:41 08/19/24 07:41 08/19/24 07:41 08/19/24 07:41 08/19/24 07:41
Intake and Output
08/18/24 08/19/24 08/20/24
06:59 06:59 06:59
Intake Total 720 / 720 630 / 630
Balance 720 / 720 630 / 630
SaO2 95
Physical Exam
General: Respiratory Distress (n), Comfortable, Chills (n) and Sweats (n)
HEENT: Normocephalic and Anicteric
Cardiovascular: S1-S2 and Peripheral Edema (n)
Respiratory: Wheeze (n), Crackles (Bilateral), Rhonchi (Bilateral in posterior lung mason), Non-Labored Respirations and Other (Inspiratory squeaks heard bilaterally)
GI: Soft, Non Distended, Non Tender and Normal Bowel Sounds
Neurology: AO x 3 and Tremors (n)
Skin: Warm, Dry, Cyanosis (n) and Jaundice (n)
Labs/Micro/Reports
Lab Data
08/19/24 06:36
08/19/24 06:36
Microbiology
08/17/24 18:49 Sputum Gram Stain - Preliminary
08/17/24 07:58 Blood/Venous Blood Culture - Preliminary
No Growth in 48 hours- Final report to follow
08/17/24 07:58 Blood/Venous Blood Culture - Preliminary
No Growth in 48 hours- Final report to follow
08/17/24 21:49 Nose Nasal Screen MRSA (PCR) - Final
MRSA not detected - performed by PCR methodology.
[2024-08-19 15:21] VITALS: BP 138/65
[2024-08-19] MEDS: TESSALON PERLES PO ×2 (15:42→21:59)
[2024-08-19] MEDS: LOVENOX 40 MG SC (16:59)
[2024-08-19] MEDS: SODIUM CHLORIDE 3% FOR INHALATION 1 VIAL INH (20:03)
[2024-08-19] MEDS: SENOKOT-S 1 TABLET PO (21:58)
[2024-08-19] MEDS: MAG-TAB SR 84 MG PO (21:59)
[2024-08-19] MEDS: REFRESH EYE DROPS (PF) 1 DROPS OPHTH (22:00)
[2024-08-19] MEDS: XANAX 0.125 MG PO (22:06)
[2024-08-19 23:12] VITALS: BP 158/76
[2024-08-20] MEDS: STERILE WATER FOR INJECTION 10 ML IV ×3 (01:52→16:39)
[2024-08-20] MEDS: MAXIPIME 1000 MG IV ×2 (01:52→09:47)
[2024-08-20 07:25] VITALS: BP 137/67
[2024-08-20] MEDS: DUONEB 3 ML INH ×3 (07:36→20:19)
[2024-08-20] MEDS: SODIUM CHLORIDE 3% FOR INHALATION 1 VIAL INH ×2 (07:36→20:19)
[2024-08-20 07:58] LABS: Hematocrit 36.6 % (37.0-47.0); Hemoglobin 12.2 g/dL (12.0-16.0); Mean Corp Hgb Conc. 33.3 g/dL (33.0-37.0); Mean Corpuscular Hgb 29.1 pg (27.0-31.0); Mean Corpuscular Volume 87.4 fL (81.0-99.0); Mean Platelet Volume 9.6 fL (7.4-10.4); Platelet Count 271 10^3/uL (130-400); Red Blood Cell Count 4.19 10^6/uL (4.20-5.40); Red Cell Dist. Width 12.8 % (11.5-14.5); White Blood Cell Count 5.1 10^3/uL (4.8-10.8)
[2024-08-20] MEDS: PROTONIX 40 MG PO (08:14)
[2024-08-20] MEDS: VITAMIN B-12 5000 MCG PO (08:14)
[2024-08-20] MEDS: MURO 5% OPHTHALMIC OINTMENT OPHTH ×3 (08:14→17:30)
[2024-08-20] MEDS: VISBIOME 1 CAP PO (08:14)
[2024-08-20] MEDS: COZAAR 100 MG PO (08:15)
[2024-08-20] MEDS: VITAMIN C 500 MG PO (08:15)
[2024-08-20] MEDS: CRESTOR 5 MG PO (08:15)
[2024-08-20] MEDS: ORETIC 25 MG PO (08:15)
[2024-08-20] MEDS: TESSALON PERLES PO ×3 (08:16→21:48)
[2024-08-20 08:44] LABS: Blood Urea Nitrogen 17 mg/dl (7-17); Calcium 9.1 mg/dl (8.4-10.2); Carbon Dioxide 26 mmol/L (22-30); Chloride 102 mmol/L (98-107); Estimated Creatinine Clearance 64 ml/min; Glucose 100 mg/dl (70-99); Potassium 3.8 mmol/L (3.5-5.1); Sodium 136 mmol/L (135-145); eGFR > 60.00
[2024-08-20] MEDS: MIRALAX 17 GRAMS PO ×2 (10:18→21:44)
[2024-08-20] MEDS: MILK OF MAGNESIA 30 ML PO (10:18)
[2024-08-20] MEDS: SENOKOT 17.2 MG PO ×2 (10:18→21:45)
--- NOTE | 2024-08-20 11:09 | CON.ID ---
Consultation
-
Date/Time Consultation Requested: 08/19/24 20:35
Date/Time Consultation Performed: 08/20/24 11:09
Requesting Provider: Dr Mancilla
Performing Provider: Dr Salas
Reason for Consultation: Bronchiectasis; Hx of Pseudomonas on outpatient SCx ([facility]); Now Dx w/PNA
Chief Complaint / Past History
Chief Complaint
cough
History of Present Illness
Ms Fong is an 83 year old female with history of bronchiectasis (diagnosed [address] Porter pulmonary and Dr العلي ID at [facility]), CF carrier hypogammaglobulinemia on weekly IVIG, prior Pseudomonas colonization who presented here
08/17 for cough and increased shortness of breath. She reports multiple courses of antibiotics in the last several months for exacerbations (azithromycin, levofloxacin, cefdinir, tobramycin nebs), she then presented here for increased cough,
shortness of breath, low grade fever. She denies hemoptysis, chest pain, lightheadedness, dizziness, dysphagia, choking,unintentional weight loss. She recently presented to the ER 08/15, for cough, had a CT chest with suspected NTM, started
Augmentin and doxycycline from the ER and was not improving so represented.
Note Multiple providers at [facility], , [facility], [place]. Sees pulmonary, immunology, infectious disease
Since arrival here she has been afebrile, bp stable, saturating in the 90s on room air, wbc 5.1, hgb 12.2, ptl 271, L shift was present on arrival and normalized on HD1, cr 0.6, lts wnl, bnp 85, 08/15 CT chest without contrast: bronchiectasis
particularly in the RML and lingula, tiny centrilobular nodular and ground glass opacities at the bases, blood cultures x2 no growth to date, 08/17 sputum culture here GNR moderate, outpatient sputum from 07/25/24 2 strains of Pseudomonas one strain
resistant to ciprofloxacin and intermediate to levaquin
Past History
Additional Past Medical History:
Bronchiectasis, positive CF carrier, history of aspergillus via bronchoscopy, Pseudomonas via bronchoscopy, denies history of NTM, multiple pneumonias in the past, osteoarthritis, hypertension, asthma
Additional Past Surgical History:
hip replacement, surgery
Allergy History:
neomycin Allergy (Verified 08/17/24 19:43)
Eye drops- inflammation
Opioids - Morphine Analogues Allergy (Verified 08/17/24 19:43)
Bronchiectasis
Sulfa (Sulfonamide Antibiotics) Allergy (Verified 08/17/24 04:36)
Rash
Medications Reviewed: Yes
Social History
Tobacco: Non-Smoker
Alcohol: None
Drug: None
Family History
Family History: Other (Father from pneumonia, heart attack at 61, also had interstitial disease. Mother from stroke. 1 brother with history of valve replacement. 1 daughter healthy.)
Review of Systems
Vital Signs
Temp Pulse Resp BP Pulse Ox
98.5 F 71 18 137/67 93
08/20/24 07:25 08/20/24 08:15 08/20/24 07:40 08/20/24 08:15 08/20/24 07:40
Physical Exam
Physical Exam
Constitutional: No Acute Distress and Chronically Ill
Cardiovascular: Regular Rate and S1/S2; Negative Murmur or Rub
Pulmonary: Clear, Symmetric, Coarse, Non Labored and Other (intermittent nonproductive cough); Negative Wheezes, Rales or Rhonchi
Gastrointestinal: Soft, Non Tender, Non Distended and Normal Bowel Sounds
Skin: Warm and Dry; Negative Rash or Jaundice
Lab / Diagnostic Study Results
08/20/24 07:06
08/20/24 07:05
Abs Immat Gran (auto) 0.0 10^3/uL (0-0.05) 08/18/24 07:50
Absolute Neuts (auto) 3.0 10^3/uL (1.4-6.5) 08/18/24 07:50
Absolute Lymphs (auto) 1.2 10^3/uL (1.2-3.4) 08/18/24 07:50
Absolute Monos (auto) 0.5 10^3/uL (0.1-0.6) 08/18/24 07:50
Absolute Basos (auto) 0.1 10^3/uL (0-0.2) 08/18/24 07:50
Immature Gran % 0.2 % (0-0.5) 08/18/24 07:50
Neutrophils % 62.3 % (42.2-75.2) 08/18/24 07:50
Lymphocytes % 24.0 % (20.5-51.1) 08/18/24 07:50
Monocytes % 9.4 % (1.7-9.3) H 08/18/24 07:50
Eosinophils % 3.1 % (0-6) 08/18/24 07:50
Basophils % 1.0 % (0-2) 08/18/24 07:50
Lactic Acid Cancelled 08/17/24 10:30
Microbiology Results
Micro:
08/17/24 07:58 Blood Culture - Preliminary
Blood/Venous No Growth in 72 hours- Final report to follow
08/17/24 07:58 Blood Culture - Preliminary
Blood/Venous No Growth in 72 hours- Final report to follow
08/17/24 18:49 Respiratory Culture - Preliminary
Sputum Gram negative bacilli
Gram Stain - Preliminary
08/17/24 21:49 Nasal Screen MRSA (PCR) - Final
Nose MRSA not detected - performed by PCR methodology.
Assessment / Plan
Bronchiectasis Flare
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
CF carrier
Chronic back pain
- follow resp culture for current ID and sensitivities
- previous cultures from 07/25/2024 reviewed and a copy was placed on her paper chart - isolates were sensitive to cefepime
- blood cultures are no growth to date
- workup for possible NTM infection with sputum for AFB x3 can be done outpatient with her ID or fraternity adviser
- increase cefepime dose to 2 gm iv q8hr given suspected pseudomonas; plan 14 day course
- midline
- will tentatively begin setting up for home IV antibiotics (cefepime for now), this process will take about 24 hours which should give time for ID and sensitives to result
- she has requested information about outpatient follow up with our group which is a possibility if she wishes, alternatively can continue to follow up with [facility] ID Dr العلي. She can call the office for followup in 4-5 month if she decides to
pursue that route.
--- NOTE | 2024-08-20 14:39 | W.PN.HOSP.TC ---
Today's Communication/Plan
-
Await Final Cx
Likely Needs IV AB for discharge
Assessment / Plan
Assessment / Plan
83-year-old female with cough and shortness of breath
CVS: S1-S2 normal
Chest: rales B/L
Abdomen: Soft, NT / Bowel sounds present
Extremities: No edema, normal pulses
CORPORATE RECEPTIONIST: Non focal exam
# Acute pneumonia/bronchiectasis/Bilateral bronchiolitis
History of asthma
Has been on and off antibiotics for the past 8 months-tobramycin, Levaquin, azithromycin
CF Carrier-Follows infectious disease at [place]
Patient on Spiriva, arformoterol, albuterol HFA
Recent sputum culture with Pseudomonas
Continue cefepime at 2 grams IV Q8H Dose. Off vancomycin
Continue inhalers, 3% saline
Unable to do vest therapy due to pain-continue Acapella and IS
Pulmonary consulted and following
ID consulted
May need IV Cefepime for discharge as no oral options for pseudomonas
# Hypertension-continue losartan hydrochlorothiazide
# Hyperlipidemia-continue statin
# Constipation-Advised to bring Amitiza from home.
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
# GERD-continue PPI
# Chronic back pain
# Anxiety-continue as needed Xanax
# DVT prophylaxis-Lovenox
# Full code
D/W RN
D/W Pulm
Patient would like to use the same infusion agency which she uses now for cefepime if possible.
Part of this note was created using voice recognition system. Occasional wrong word or��sound alike� substitutions may have inadvertently occurred due to the inherent limitations of voice recognition software. If noted kindly bring it to my
attention for correction.
Anticipated Discharge: Within 24 hours
Subjective/Interval History
-
Date of Service: August 20, 2024
Objective Data
-
Labs:
Laboratory Results
08/20/24 08/20/24
07:05 07:06
WBC 5.1
Hgb 12.2
Hct 36.6 L
Plt Count 271
Sodium 136
Potassium 3.8
Chloride 102
Carbon Dioxide 26
BUN 17
Creatinine 0.6
Glucose 100 H
Calcium 9.1
Vital Signs:
Vital Signs
Temp Pulse Resp BP Pulse Ox
98.5 F 77 17 137/67 95
08/20/24 07:25 08/20/24 11:33 08/20/24 11:33 08/20/24 08:15 08/20/24 11:45
I&O
08/19/24 08/20/24 08/21/24
06:59 06:59 06:59
Intake Total 630 / 630 720 / 720
Balance 630 / 630 720 / 720
[2024-08-20 15:10] VITALS: BP 156/64
[2024-08-20] MEDS: DUONEB INH (15:11)
--- NOTE | 2024-08-20 15:27 | W.PN.PUL3 ---
Today's Communication / Plan
-
Continue secretion clearance interventions
Mucolytics
Acapella device
Antibiotics per infectious disease
Midline to be placed
Hopefully can be discharged in the next 24 hours.
Assessment
-
83-year-old female with history of bronchiectasis diagnosed in 1999, history of Pseudomonas, Aspergillus via bronchoscopy, sputum culture requiring multiple courses of antibiotics throughout the year including azithromycin, tobramycin nebs, recently
treated with Augmentin and doxycycline with worsening symptoms. She is now here for acute pneumonitis with bronchiectasis
Acute bronchitis, progressive with an acute bronchiectasis flare
Also concern for small airways disease given scattered subpleural nodular opacities and other widespread tree-in-bud nodule opacities
Bilateral bronchiolitis, bronchiectasis
History of bronchiectasis diagnosed 1999
CF carrier
Bronchoscopy x 3, last 2023 (Dr. Barrett)
Treated with intermittent tobramycin, Levaquin, azithromycin
Follows infectious disease at [place]
Follows immunology, started on subcutaneous IVIG July 2024
Conditions present prior to admission
Hypertension
History of asthma
Chronic back pain
Plan/recommendations
Remains afebrile
Nontoxic
-
Extremely complex pulmonary history dating back 25 years ago
Multiple providers at [place], , [facility], [place]
Sees pulmonary, immunology, infectious disease
Last bronchoscopy 04/28/2023
Extensive workup has been done throughout the years.
Plan:
-
Overnight no new complaints
Afebrile
Denies shortness of breath
Appears nontoxic
-
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 Noted from culture obtained from the outpatient setting by infectious disease.
Sensitive to cefepime.
- Her recent outpatient sputum culture from 07/25/2024 had 2 strains of Pseudomonas aeruginosa, where 1 strain had resistance to ciprofloxacin, as well as intermediate sensitivity to Levaquin
-
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
Sputum culture collected 08/17 is now growing GNR � follow-up species + sensitivities- Pending
Infectious disease correspondence reviewed: Plan for 14 days of cefepime. Midline will be placed.
- IV Vanco discontinued given negative MRSA swab
-
Patient empirically takes Levaquin, tobramycin nebs and Zithromax
Patient recommend to check sputum culture frequently as an outpatient and to discuss this with ID
She has been tested for AFB in the past and was negative.
I do recall from the outpatient setting that at some point she had fungal cultures positive. Being managed by infectious disease at [facility].
Reviewed records from 2022
PFT normal
Autoimmune workup, alpha-1 levels normal
Continue secretion clearance interventions while in the hospital: She will restart her usual regimen upon discharge.
To help improve pulmonary toilet, continue with DuoNebs + nebulized 3% while hospitalized; also recommend Acapella
Unfortunately patient cannot tolerate vest therapy due to back pain
She has an IPV device at home, just started using.
No indication for systemic corticosteroids
-
She just started subcutaneous IVIG 3 weeks ago, obtains injection once a week
Continue to follow-up with her tree scout in the next 2 to 3 weeks
Complex decision making process
Plan is possible discharge tomorrow with a midline per infectious disease. Continue to follow in the outpatient with infectious disease at [facility] and her primary tree scout.
Subjective Data
-
Date of Service:
Date of Service: August 20, 2024
Chief Complaint: Pulmonary Follow Up (Bronchiectasis exacerbation)
Subjective:
No new complaints
Denies hemoptysis
Continues to have intermittent coughing
Denies shortness of breath
Review of Systems
Cardiopulmonary: Cough, Sputum Production and Wheezing (n)
GI: Abdominal Pain (n) and Nausea (n)
Objective Data
Data Reviewed
Vital Signs / I&O / Oxygen:
Vital Signs
Temp Pulse Resp BP Pulse Ox
98.5 F 77 17 137/67 95
08/20/24 07:25 08/20/24 11:33 08/20/24 11:33 08/20/24 08:15 08/20/24 11:45
Intake and Output
08/19/24 08/20/24 08/21/24
06:59 06:59 06:59
Intake Total 630 / 630 720 / 720
Balance 630 / 630 720 / 720
SaO2 95
Physical Exam
General: Respiratory Distress (n), Comfortable, Chills (n) and Sweats (n)
HEENT: Normocephalic and Anicteric
Cardiovascular: S1-S2 and Peripheral Edema (n)
Respiratory: Wheeze (n), Crackles (Bilateral), Rhonchi (Bilateral in posterior lung mason), Non-Labored Respirations and Other (Inspiratory squeaks heard bilaterally)
GI: Soft, Non Distended, Non Tender and Normal Bowel Sounds
Neurology: AO x 3 and Tremors (n)
Skin: Warm, Dry, Cyanosis (n) and Jaundice (n)
Labs/Micro/Reports
Lab Data
08/20/24 07:06
08/20/24 07:05
Microbiology
08/17/24 18:49 Sputum Respiratory Culture - Preliminary
Gram negative bacilli
08/17/24 18:49 Sputum Gram Stain - Preliminary
08/17/24 07:58 Blood/Venous Blood Culture - Preliminary
No Growth in 72 hours- Final report to follow
08/17/24 07:58 Blood/Venous Blood Culture - Preliminary
No Growth in 72 hours- Final report to follow
08/17/24 21:49 Nose Nasal Screen MRSA (PCR) - Final
MRSA not detected - performed by PCR methodology.
--- NOTE | 2024-08-20 15:42 | VATNOTE ---
Midline order noted. Per PCNMonica, patient requested cost info prior to having midline placed. Will follow
--- NOTE | 2024-08-20 15:49 | CM ---
Patient current with [facility], TC to Lonnie at [facility] p# [phone] and confirmed they are current.
Script and clinicals faxed to [facility] at [phone].
Per [facility] they will check costs and get back to us.
PICC/Midline (P).
TC to [facility] spoke with Norma and asked her to disregard referral for IV anbx as patient is current with [facility].
--- NOTE | 2024-08-20 16:28 | CM ---
Addendum entered by Cindy Bryan 08/20/24 16:43:
Gayathri from [employer] called with cost
$55 for 7 days, nursing covered at 100%
notified patient
CM will need to fax picc/midline information once placed
Original Note:
Patient seen at bedside
IA completed
Patient lives alone in a 1 story home, no steps
PLOF: Independent,drives
DME: IPV machine, nebulizer
Current with [facility] for SQ IgG, denies rehab
PCP: Rigo Kurtz
Pharmacy: [facility], [address], [place]
PLAN: Home with IV antibiotic
drove self
[2024-08-20] MEDS: MAXIPIME 2000 MG IV (16:39)
[2024-08-20] MEDS: MURO 128/ADSORBONAC 5% EYE DROPS 1 DROP OPHTH ×2 (17:30→21:47)
[2024-08-20] MEDS: LOVENOX 40 MG SC (17:30)
[2024-08-20] MEDS: REFRESH EYE DROPS (PF) 1 DROPS BOTH EYES (17:35)
[2024-08-20] MEDS: ROBITUSSIN DM 10 ML PO (21:46)
[2024-08-20] MEDS: MAG-TAB SR 84 MG PO (21:46)
[2024-08-20] MEDS: MURO 5% OPHTHALMIC OINTMENT 1 APPLIC OPHTH (21:47)
[2024-08-20] MEDS: XANAX 0.125 MG PO (22:06)
[2024-08-20 23:15] VITALS: BP 115/65
[2024-08-21] MEDS: STERILE WATER FOR INJECTION 10 ML IV ×2 (00:41→08:39)
[2024-08-21] MEDS: MAXIPIME 2000 MG IV ×2 (00:41→08:39)
[2024-08-21 07:00] VITALS: BP 147/71
[2024-08-21] MEDS: SODIUM CHLORIDE 3% FOR INHALATION 1 VIAL INH (07:42)
[2024-08-21] MEDS: DUONEB 3 ML INH ×2 (07:42→11:27)
[2024-08-21] MEDS: SENOKOT 17.2 MG PO (08:40)
[2024-08-21] MEDS: PROTONIX 40 MG PO (08:40)
[2024-08-21] MEDS: ORETIC 25 MG PO (08:40)
[2024-08-21] MEDS: TESSALON PERLES PO (08:41)
[2024-08-21] MEDS: MURO 5% OPHTHALMIC OINTMENT OPHTH ×2 (08:41→12:55)
[2024-08-21] MEDS: MIRALAX 17 GRAMS PO (08:41)
[2024-08-21] MEDS: VITAMIN B-12 PO (08:41)
[2024-08-21] MEDS: COZAAR 100 MG PO (08:41)
[2024-08-21] MEDS: MURO 128/ADSORBONAC 5% EYE DROPS 1 DROP OPHTH ×2 (08:41→12:55)
[2024-08-21] MEDS: VITAMIN C PO (08:42)
[2024-08-21] MEDS: REFRESH EYE DROPS (PF) 1 DROPS BOTH EYES (08:48)
[2024-08-21] MEDS: TYLENOL 650 MG PO (10:04)
--- NOTE | 2024-08-21 14:24 | W.PN.PUL3 ---
Today's Communication / Plan
-
Continue IV antibiotics total 2 weeks, right mid line in place.
Secretion clearance interventions continue as prior admission
Eventual radiographic follow-up
Follow-up with primary tobacco sorter and infectious disease in the outpatient setting
For DC today.
Sign off
Assessment
-
83-year-old female with history of bronchiectasis diagnosed in 1999, history of Pseudomonas, Aspergillus via bronchoscopy, sputum culture requiring multiple courses of antibiotics throughout the year including azithromycin, tobramycin nebs, recently
treated with Augmentin and doxycycline with worsening symptoms. She is now here for acute pneumonitis with bronchiectasis
Acute bronchitis, progressive with an acute bronchiectasis flare
Also concern for small airways disease given scattered subpleural nodular opacities and other widespread tree-in-bud nodule opacities
Bilateral bronchiolitis, bronchiectasis
History of bronchiectasis diagnosed 1999
CF carrier
Bronchoscopy x 3, last 2023 (Dr. Barrett)
Treated with intermittent tobramycin, Levaquin, azithromycin
Follows infectious disease at [place]
Follows immunology, started on subcutaneous IVIG July 2024
Conditions present prior to admission
Hypertension
History of asthma
Chronic back pain
Plan/recommendations
Remains afebrile
Nontoxic
-
Extremely complex pulmonary history dating back 25 years ago
Multiple providers at [place], , [facility], [place]
Sees pulmonary, immunology, infectious disease
Last bronchoscopy 04/28/2023
Extensive workup has been done throughout the years.
Plan:
-
Overnight no new complaints
Afebrile
Denies shortness of breath
Appears nontoxic
-
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 Noted from culture obtained from the outpatient setting by infectious disease.
Sensitive to cefepime.
- Her recent outpatient sputum culture from 07/25/2024 had 2 strains of Pseudomonas aeruginosa, where 1 strain had resistance to ciprofloxacin, as well as intermediate sensitivity to Levaquin
CT of the chest with severe bronchiectasis: Also bronchiolitis. Mucous plugging.
Bronchiolitis may be from Pseudomonas and JOVANNA cannot be ruled out.
-
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
Sputum culture collected 08/17 is now growing GNR �Pseudomonas resistant to tobramycin. Otherwise sensitive.
Infectious disease correspondence reviewed: Plan for 14 days of cefepime. Midline will be placed.
- IV Vanco discontinued given negative MRSA swab
-
Patient empirically takes Levaquin, tobramycin nebs and Zithromax
Patient recommend to check sputum culture frequently as an outpatient and to discuss this with ID
She has been tested for AFB in the past and was negative.
I do recall from the outpatient setting that at some point she had fungal cultures positive. Being managed by infectious disease at [facility].
Will need radiographic follow-up in the next 6 to 8 weeks to document improvement/resolution of bronchiolitis.
Reviewed records from 2022
PFT normal
Autoimmune workup, alpha-1 levels normal
Continue secretion clearance interventions while in the hospital: She will restart her usual regimen upon discharge.
To help improve pulmonary toilet, continue with DuoNebs + nebulized 3% while hospitalized; also recommend Acapella
Unfortunately patient cannot tolerate vest therapy due to back pain
She has an IPV device at home, just started using.
No indication for systemic corticosteroids
-
She just started subcutaneous IVIG 3 weeks ago, obtains injection once a week
Continue to follow-up with her tobacco sorter in the next 2 to 3 weeks
Complex decision making process
From my perspective okay to discharge on IV antibiotics. Continue to follow in the outpatient with infectious disease at [facility] and her primary tobacco sorter.
Subjective Data
-
Date of Service:
Date of Service: August 21, 2024
Chief Complaint: Pulmonary Follow Up (Bronchiectasis exacerbation)
Objective Data
Data Reviewed
Vital Signs / I&O / Oxygen:
Vital Signs
Temp Pulse Resp BP Pulse Ox
98.2 F 75 16 147/71 96
08/21/24 07:00 08/21/24 11:30 08/21/24 11:30 08/21/24 08:41 08/21/24 12:48
Intake and Output
08/20/24 08/21/24 08/22/24
06:59 06:59 06:59
Intake Total 720 / 720 900 / 900
Balance 720 / 720 900 / 900
SaO2 96
Physical Exam
General: Respiratory Distress (n), Comfortable, Chills (n) and Sweats (n)
HEENT: Normocephalic and Anicteric
Cardiovascular: S1-S2 and Peripheral Edema (n)
Respiratory: Wheeze (n), Crackles (Bilateral), Rhonchi (Bilateral in posterior lung mason), Non-Labored Respirations and Other (Inspiratory squeaks heard bilaterally)
GI: Soft, Non Distended, Non Tender and Normal Bowel Sounds
Neurology: AO x 3 and Tremors (n)
Skin: Warm, Dry, Cyanosis (n) and Jaundice (n)
Labs/Micro/Reports
Lab Data
08/20/24 07:06
08/20/24 07:05
Microbiology
08/17/24 18:49 Sputum Respiratory Culture - Final
Pseudomonas aeruginosa
08/17/24 18:49 Sputum Gram Stain - Final
08/17/24 07:58 Blood/Venous Blood Culture - Preliminary
No Growth in 4 days- Final report to follow
08/17/24 07:58 Blood/Venous Blood Culture - Preliminary
No Growth in 4 days- Final report to follow
08/17/24 21:49 Nose Nasal Screen MRSA (PCR) - Final
MRSA not detected - performed by PCR methodology.
--- NOTE | 2024-08-21 14:38 | CM ---
Chart reviewed and plan is for patient to return to home with IV infusion today, from [facility], updated script, midline information all faxed to [facility], and per Parul at [facility] [phone], they will have a nurse out today at
5-5:30pm, and medication has also been set up, per patient [facility] spoke with her directly.
Plan; Home today with home infusion from [facility], and nursing. IMM given.
--- NOTE | 2024-08-21 14:46 | W.PN.HOSP.TC ---
Today's Communication/Plan
-
Discharge
Assessment / Plan
Assessment / Plan
83-year-old female with cough and shortness of breath
CVS: S1-S2 normal
Chest: B/L, One short wheeze.
Abdomen: Soft, NT / Bowel sounds present
Extremities: No edema
# Acute pneumonia/bronchiectasis/Bilateral bronchiolitis
History of asthma
Has been on and off antibiotics for the past 8 months-Tobramycin, Levaquin, Azithromycin
CF Carrier-Follows infectious disease at [place]
Patient on Spiriva, arformoterol, albuterol HFA
Sputum culture with Pseudomonas
Continue cefepime at 2 grams IV Q8H Dose. Off vancomycin
Continue inhalers, 3% saline
Unable to do vest therapy due to pain-continue Acapella and IS
Pulmonary consulted and following
ID consulted
Cefepime for discharge
# Hypertension-continue losartan hydrochlorothiazide
# Hyperlipidemia-continue statin
# Constipation-Advised to bring Amitiza from home.
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
# GERD-continue PPI
# Chronic back pain
# Anxiety-continue as needed Xanax
# DVT prophylaxis-Lovenox
# Full code
D/W RN
D/W Pulm and infectious disease
Plan is to discharge patient on cefepime 2 g IV every 8 hours till 08/30/2024.
Infusion arranged for home, midline placed
Discussed with case management
More than 30 minutes spent in discharge including
Final examination of the patient
Summarizing hospital stay
Instructions for continuing care to all relevant caregivers
Preparation of discharge records, prescriptions, and referral forms
Total time spent (in minutes): 37 min
Copy of sputum Cx given to Pt per request
Asked if I need to talk to anybody else in the family patient declined.
Part of this note was created using voice recognition system. Occasional wrong word or��sound alike� substitutions may have inadvertently occurred due to the inherent limitations of voice recognition software. If noted kindly bring it to my
attention for correction.
Anticipated Discharge: Today
Subjective/Interval History
-
Date of Service: August 21, 2024
Objective Data
-
Vital Signs:
Vital Signs
Temp Pulse Resp BP Pulse Ox
98.2 F 75 16 147/71 96
08/21/24 07:00 08/21/24 11:30 08/21/24 11:30 08/21/24 08:41 08/21/24 12:48
I&O
08/20/24 08/21/24 08/22/24
06:59 06:59 06:59
Intake Total 720 / 720 900 / 900
Balance 720 / 720 900 / 900
--- NOTE | 2024-08-21 14:59 | W.DS.TRANS ---
Addendum entered and electronically signed by Helga Hardwick MD 08/21/24 17:19:
Dictation- [id number]
Original Note:
DC Summary - [employer]
-
Discharge Instructions:
Discharge Diagnosis/Procedures Acute bronchitis
Exacerbation of bronchiectasis
Hypertension
Hyperlipidemia
Constipation
Hemoglobin deficiency
Chronic back pain
Anxiety
Diet As tolerated
Activity As tolerated
Driving Restrictions As prior to admission
Others Tests Chest x-ray 6 weeks
Other Services VN
Instructions:
Stand-Alone Forms:
Changes to Home Medications: Yes
Discharge Medications:
DC Medications w/original date entered in [employer]
losartan 100 mg-hydrochlorothiazide 25 mg tablet 1 tab PO DAILY Blood Pressure 09/13/23
arformoterol 15 mcg/2 mL solution for nebulization 15 mcg inhalation R BID Lung/Breathing Issues 01/19/24
ascorbic acid (vitamin C) 500 mg tablet (Vitamin C) 500 mg PO DAILY Supplement 01/19/24
magnesium oxide 140 mg capsule 140 mg PO HS ##0 01/19/24
pzqamgfbutqp-bbiz-rmzohbgd-folic acid 400 mcg-biotin 100 mcg tablet 1 tab PO DAILY ##0 01/19/24
albuterol sulfate 2.5 mg/3 mL (0.083 %) solution for nebulization 2.5 mg inhalation R BID Lung/Breathing Issues 08/17/24
albuterol sulfate 90 mcg/actuation aerosol inhaler 2 puff inhalation R Q6HPRN PRN SOB 08/17/24
alprazolam 0.25 mg tablet (Xanax) 0.125 mg PO PRN PRN sleep 08/17/24
cyanocobalamin (vitamin B-12) 5,000 mcg/mL sublingual drops 5,000 mcg sublingual DAILY Supplement 08/17/24
Lactobac no.2-Bifidobac no.1-S. thermo 112.5 billion cell capsule (Visbiome) 1 cap PO DAILY Supplement #0 caps 08/21/24
carboxymethylcellulose sodium 0.5 % eye drops (Refresh Tears) 1 drp ophthalmic (eye) 4-8XD Eye condition #0 mL 08/21/24
cefepime 2 gram solution for injection 2,000 mg IV Q8H Infection #0 ea 08/21/24
immun glob G 4 gram/20 mL(20 %)-prol-IgA 0-50 mcg/mL subcutaneous soln (Hizentra) 8,000 mg (40 mL) SC QWEEK Immunoglobin deficiency #0 mL 08/21/24
ipratropium bromide 0.02 % solution for inhalation 0.5 mg (2.5 mL) inhalation R BID Lung/breathing issues #0 mL 08/21/24
lubiprostone 24 mcg capsule (Amitiza) 24 mcg PO BID Constipation #0 caps 08/21/24
pantoprazole 40 mg tablet,delayed release (Protonix) 40 mg PO DAILY Gastrointestinal issue #0 tabs 08/21/24
polyethylene glycol 3350 17 gram oral powder packet (HealthyLax) 25.5 g PO DAILY Constipation #0 ea 08/21/24
rosuvastatin 5 mg tablet 5 mg PO Q48H High cholesterol #0 tabs 08/21/24
sodium chloride 5 % eye drops (Marina 128) 1 drp ophthalmic (eye) QID Eye condition #0 mL 08/21/24
Home Medication Changes
new
Cefepime
Pending Results: No
--- NOTE | 2024-08-21 17:18 | W.PN.ID1 ---
Date of Service
Date of Service: August 21, 2024
Today's Communication
- c/w cefepime 2 gm iv q8hr given suspected pseudomonas; plan 14 day course through 08/30. While her most recent culture showed a quinolone sensitive Pseudomonas, given multiple previous courses of quinolones and possibility of a subpopulation, I
have recommended a one time course of IV cefepime. She is in agreement.
Assessment / Plan
Bronchiectasis Flare
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
CF carrier
Chronic back pain
- 08/17 resp culture also with Pseudomonas - sensitive to ciprofloxacin, levofloxacin not tested, sensitive to cefepime
- previous cultures from 07/25/2024 reviewed and a copy was placed on her paper chart - isolates were sensitive to cefepime, resistant to quinolones/tobramycin
- blood cultures are no growth to date
- workup for possible NTM infection with sputum for AFB x3 can be done outpatient with her ID or skidder runner
- c/w cefepime 2 gm iv q8hr given suspected pseudomonas; plan 14 day course through 08/30. While her most recent culture showed a quinolone sensitive Pseudomonas, given multiple previous courses of quinolones and possibility of a subpopulation, I
have recommended a one time course of IV cefepime. She is in agreement.
- midline in place - expect some tenderness for the first 24-48 hours after placement - remove after completion of treatment.
- follow up with [facility] Dr العلي; my office will fax a copy of my initial consult note, progress note, CT chest and culture to [facility] clinic attention Dr العلي for routine follow up; we will follow up her outpatient labs while on IV
antibiotics through 08/30 and then she will return to Dr العليs care
Chief Complaint
-: Other (bronchiectasis flare)
Subjective / Review of Systems
remains afebrile
bp stable
reports improvement of her generalized malaise for the first time in many months
cough ongoing - nonproductive
Vital Signs / Physical Exam
Vital Signs
Vital Signs
Temp Pulse Resp BP Pulse Ox
98.2 F 75 16 147/71 96
08/21/24 07:00 08/21/24 11:30 08/21/24 11:30 08/21/24 08:41 08/21/24 12:48
Physical Exam
Constitutional: No Acute Distress
Cardiovascular: Regular Rate and S1/S2; Negative Murmur or Rub
Pulmonary: Symmetric, Coarse and Non Labored; Negative Wheezes or Rales
Gastrointestinal: Soft, Non Tender, Non Distended and Normal Bowel Sounds
Skin: Warm and Dry; Negative Rash or Jaundice
Neurological: Awake
Objective Data
Lab Data
Lab Results
08/20/24 07:06
08/20/24 07:05
Estimated Creat Clear 64 ml/min 08/20/24 07:05
Lactic Acid Cancelled 08/17/24 10:30
Total Bilirubin 0.4 mg/dl (0.2-1.3) 08/17/24 07:58
AST 21 U/L (14-36) 08/17/24 07:58
ALT 16 U/L (0-35) 08/17/24 07:58
Alkaline Phosphatase 119 U/L (38-126) 08/17/24 07:58
Most recent labs reviewed.
Micro Results:
08/17/24 18:49 Respiratory Culture - Final
Sputum Pseudomonas aeruginosa
Gram Stain - Final
08/17/24 07:58 Blood Culture - Preliminary
Blood/Venous No Growth in 4 days- Final report to follow
08/17/24 07:58 Blood Culture - Preliminary
Blood/Venous No Growth in 4 days- Final report to follow
08/17/24 21:49 Nasal Screen MRSA (PCR) - Final
Nose MRSA not detected - performed by PCR methodology.
Care Review
Plan reviewed with: Physician (Dr Gamble - history)
== END 2024-08-21 15:17 | disposition home or self-care (01) | DRG 192 ==
LOC: 4 EAST ACU 12:34
PROVIDERS: Physician Assistant; ADMITTING PHYSICIAN General Practice; ATTENDING PHYSICIAN Hospitalist; CONSULT PHYSICIAN Internal Medicine Critical Care Medicine; EMERGENCY PHYSICIAN Emergency Medicine; FAMILY PHYSICIAN Family Medicine; OTHER PHYSICIAN Student in an Organized Health Care Education/Training Program
DX: J47.0 Bronchiectasis with acute lower respiratory infection (principal); J47.1 Bronchiectasis with (acute) exacerbation; J18.9 Pneumonia, unspecified organism; I10 Essential (primary) hypertension; J20.9 Acute bronchitis, unspecified; Z14.1 Cystic fibrosis carrier; G89.29 Other chronic pain; M54.9 Dorsalgia, unspecified; E78.5 Hyperlipidemia, unspecified; K59.00 Constipation, unspecified; K21.9 Gastro-esophageal reflux disease without esophagitis; F41.9 Anxiety disorder, unspecified
CPT/HCPCS: 80048; 80053; 83605; 83880; 85025; 85027; 87040; 87070; 87077; 87186; 87205; 87641; 94640; 96374; 96375; 99284

== ENCOUNTER 2024-09-03 14:29 | Inpatient (IN) | payer OTHER, SELFPAY ==
[2024-09-01 20:20] VITALS: BP 137/75
--- NOTE | 2024-09-01 22:17 | ED.GENMED ---
History of Present Illness
General
Chief Complaint: Cough
Source: patient
Exam Limitations: none
Time Seen by Provider: 09/01/24 21:36
Nursing documentation reviewed up to this point in time: agreed with
History of Present Illness
History of Present Illness:
The patient is an 83-year-old female with a history of pseudomonas lung infection who presents with worsening cough and upper respiratory symptoms. She was previously treated with various antibiotics, including a 14-day course of vancomycin and
cefepime, with the last dose administered at 6 a.m. prior to feeling unwell (2 days ago). The patient began to experience increased coughing, yielding mucus, and elevated temperature since her last antibiotic dose. Her temperature readings have been
ranging from 99.4�F to 99.6�F via a glass thermometer, which the patient notes is elevated compared to her normal range of 97�F to 98�F.
She reports persistent mucus production and respiratory noises, including crackles and wheezes, which are unusual for her, as she has previously had no lung noises associated with bronchiectasis. She describes an illness duration of the past eight
months, with intermittent use of oral steroids that have provided temporary relief in the past, but the current episode has not resolved as expected. The patient recently underwent a corneal transplant, after which her infectious disease doctor
suspected an initial reaction to anesthesia, but ruled it out as a persistent cause.
The patient reports that traditionally a couple of oral antibiotic courses would clear her symptoms for approximately two to three months, but this current episode has been resistant to treatment.
Past History
Past History
ED Past Medical History: Asthma, COPD, HTN and Other (Bronchiectasis, UTi, Kidney cyst, OA)
ED Past Surgical History: Orthopedic (right and left hip replacement)
Social History
Tobacco: Non-smoker
Alcohol: None
Personal:
Living: alone
Review of Systems
Review of Systems
Allergies reviewed?: Yes
All Other Systems: ROS reviewed and negative except as documented in HPI and ROS
Phy Exam
Physical Exam
Physical Exam:
GENERAL: Alert , in no apparent distress
EYE: pupils equal and reactive
NECK: Supple, no significant adenopathy.
ENT: o/p clr, mmm.
CARDIAC: Regular rate and rhythm .
LUNGS: Patient does have bilateral crackles as well as bilateral rhonchi
ABDOMEN: Soft, without focal tenderness, no r/g, no cvat
NEUROLOGICAL: Alert and oriented, no focal neuro deficits
SKIN: Warm and dry, skin intact.
MUSCULOSKELETAL: No edema, well perfused.
PSYCH: Normal and appropriate interaction.
Course
Orders/Labs/Results
Orders:
Orders
09/01/24 20:41
CR Chest - 2 Views Urgent
Comment:
Reason For Exam: cough
09/01/24 21:56
Sputum Culture [Respiratory Culture/Gram Stain] Urgent
JOSÉ Source: Sputum
Specimen Description:
Date Specimen was Collected: 09/01/24
Time Specimen was Collected: 21:54
09/01/24 22:13
CBC/With Diff [Complete Blood Count/With Diff] Urgent
CMP [Comprehensive Metabolic Panel] Urgent
09/02/24 00:01
CT Chest W/o Iv Contrast Urgent
Reason For Exam: right lower lobe consolidation
09/02/24 01:58
Cefepime HCl [Maxipime] 2,000 mg IV NOW STA
09/02/24 02:07
Sterile Water [Sterile Water For Injection] 10 ml .ROUTE .ST-MED ONE
Abnormal Lab Results
09/01/24
22:13
RBC 3.83 L 10^6/uL
(4.20-5.40)
Hgb 11.1 L g/dL
(12.0-16.0)
Hct 32.7 L %
(37.0-47.0)
Absolute Neuts (auto) 8.1 H 10^3/uL
(1.4-6.5)
Absolute Lymphs (auto) 1.1 L 10^3/uL
(1.2-3.4)
Absolute Monos (auto) 0.9 H 10^3/uL
(0.1-0.6)
Neutrophils % 79.2 H %
(42.2-75.2)
Lymphocytes % 10.8 L %
(20.5-51.1)
Sodium 134 L mmol/L
(135-145)
Creatinine 0.5 L mg/dL
(0.6-1.0)
Glucose 105 H mg/dl
(70-99)
09/01/24 22:13
09/01/24 22:13
Vital Signs
Initial and Last Documented VS:
Initial Vital Signs
Temp Pulse Resp BP Pulse Ox
98 F 91 18 137/75 99
09/01/24 20:20 09/01/24 20:20 09/01/24 20:20 09/01/24 20:20 09/01/24 20:20
Last Documented Vital Signs
Temp Pulse Resp BP Pulse Ox
98.6 F 79 16 149/68 95
09/02/24 01:06 09/02/24 01:06 09/02/24 01:06 09/02/24 01:06 09/02/24 01:06
MDM/Problems Addressed
MDM/Problems Addressed:
83-year-old female presenting with concerns of worsening respiratory illness. Does have a history of recent infection midline removed a few days ago. Last dose of cefepime 2 days ago. Seem to coincide with onset of new symptoms. Here she
generally is well-appearing vital signs are normal.
Acute Problems:
- Worsening cough and upper respiratory symptoms.
- Lung infection with suspected pseudomonas.
- Persistent elevated temperature.
Chronic Problems:
- Bronchiectasis.
- History of pseudomonas lung infection.
The differential diagnosis includes, in no particular order and is not limited to:
1. Pseudomonas lung infection.
2. Bronchiectasis exacerbation.
3. Post-viral cough.
4. Bacterial pneumonia.
5. Viral respiratory infection.
6. Anesthesia reaction.
7. COPD exacerbation.
8. Asthma exacerbation.
9. Aspiration pneumonia.
10. Allergic reaction.
*Critical Care Note
Total Time (30-74mins, 75-104mins- exclusive of procedures): Not Applicable
Update Note
Update Note:
CT scan showing new findings of pneumonia. Patient started on IV antibiotics will be admitted concerning history of complicated previous infection as well as immunosuppressive history.
ED Attending Note
-
Portions of this chart may have been created with voice recognition software.� Occasional wrong word or��sound alike� substitutions may have occurred due to the inherent limitations of voice recognition software.
Discharge Plan
Departure
Patient Disposition: Admit
Date of Disposition: 09/02/24
Time of Disposition: 01:59
Admit to: Telemetry
Admit to doctor: Alvarez
Presentation/result/management discussed w/ accepting MD/DO: Hospitalist
Patient with high blood pressure during this ER visit?: No
Condition: Fair
Covid-19: Not Applicable
Discharge Problem:
Pneumonia
Prescriptions:
No Action
losartan-hydrochlorothiazide 100-25 mg tablet
1 tab PO DAILY
arformoterol 15 mcg/2 mL solution for nebulization
15 mcg INHALATION R BID
magnesium oxide 140 mg Capsule
140 mg PO HS Qty: 0
albuterol sulfate 2.5 mg /3 mL (0.083 %) Solution For Nebulization
2.5 mg INHALATION R BID
Patient Comments:
sometimes TID
albuterol sulfate 90 mcg/actuation Hfa Aerosol Inhaler
2 puff INHALATION R Q6HPRN PRN (Reason: SOB)
cyanocobalamin (vitamin B-12) 5,000 mcg/mL Drops
5,000 mcg SUBLINGUAL DAILY
alprazolam [Xanax] 0.25 mg Tablet
0.125 mg PO HS
polyethylene glycol 3350 [HealthyLax] 17 gram powder in packet
25.5 g PO DAILY Qty: 0 0RF
Patient Comments:
'a capful' per patient
pantoprazole [Protonix] 40 mg Tablet,Delayed Release (Dr/Ec)
40 mg PO DAILY Qty: 0 0RF
ipratropium bromide 0.02 % solution
0.5 mg inhalation R BID Qty: 0 0RF
Patient Comments:
sometimes TID
lubiprostone [Amitiza] 24 mcg Capsule
24 mcg PO BID Qty: 0 0RF
Hizentra 4 gram/20 mL (20 %) Solution
8,000 mg SC QWEEK Qty: 0 0RF
prednisolone acetate 1 % Drops,Suspension
1 drp OPHTHALMIC (EYE) 6XD
moxifloxacin 0.5 % Drops
1 drp RIGHT EYE QID
carboxymethylcellulose sodium [Refresh Tears] 0.5 % drops
1 drp LEFT EYE QID
rosuvastatin 5 mg tablet
5 mg PO MOWEFR
Referrals:
Shannan Escobar MD [Family Provider]
Interventions
Interventions:
*Risk Screen - Suicide Last Done: 09/01/24 20:20
*General Assessment Last Done: 09/01/24 20:20
*Neglect/Abuse Screening Last Done: 09/01/24 20:20
*ED- Fall Risk Assessment Last Done: 09/02/24 01:08
ED- Pulmonary Assessment Last Done: 09/02/24 01:31
Discharge Date and Time
Print Language: ROMANIAN
[2024-09-01 22:20] VITALS: BMI 24.0
[2024-09-01 22:22] VITALS: BP 130/74
[2024-09-01 22:27] LABS: % Basophils 0.5 % (0-2); % Eosinophils 0.8 % (0-6); % Immature Granulocytes 0.3 % (0-0.5); % Lymphocytes 10.8 % (20.5-51.1); % Monocytes 8.4 % (1.7-9.3); % Neutrophils 79.2 % (42.2-75.2); Absolute Basophils 0.1 10^3/uL (0-0.2); Absolute Eosinophils 0.1 10^3/uL (0-0.7); Absolute Lymphocytes 1.1 10^3/uL (1.2-3.4); Absolute Monocytes 0.9 10^3/uL (0.1-0.6); Absolute Neutrophils 8.1 10^3/uL (1.4-6.5); Hematocrit 32.7 % (37.0-47.0); Hemoglobin 11.1 g/dL (12.0-16.0); Mean Corp Hgb Conc. 33.9 g/dL (33.0-37.0); Mean Corpuscular Volume 85.4 fL (81.0-99.0); Mean Platelet Volume 9.7 fL (7.4-10.4); Nucleated Red Blood Cells % 0 %; Platelet Count 217 10^3/uL (130-400); Red Blood Cell Count 3.83 10^6/uL (4.20-5.40); Red Cell Dist. Width 13.1 % (11.5-14.5); White Blood Cell Count 10.3 10^3/uL (4.8-10.8)
[2024-09-01 22:48] LABS: ALT (SGPT) 25 U/L (0-35); AST (SGOT) 26 U/L (14-36); Alkaline Phosphatase 111 U/L (38-126); Blood Urea Nitrogen 15 mg/dl (7-17); Calcium 9.6 mg/dl (8.4-10.2); Carbon Dioxide 26 mmol/L (22-30); Chloride 100 mmol/L (98-107); Estimated Creatinine Clearance 64 ml/min; Glucose 105 mg/dl (70-99); Potassium 3.8 mmol/L (3.5-5.1); Sodium 134 mmol/L (135-145); Total Bilirubin 0.5 mg/dl (0.2-1.3); Total Protein 6.5 g/dl (6.3-8.2); eGFR > 60.00
[2024-09-02] VITALS (8 sets, daily range): BP systolic 121–149; BP diastolic 62–72; PULSE 78; O2SAT 96
[2024-09-02] MEDS: MAXIPIME 2000 MG IV ×3 (02:23→18:07)
--- NOTE | 2024-09-02 03:05 | HPS.HSE ---
Family Physician
-
Family Physician: Shannan Escobar
Chief Complaint
-
Cough and upper respiratory symptoms
History of Present Illness
Patient is an 83-year-old woman with past medical history significant for Pseudomonas pneumonia previously treated with a 14-day course of IV vancomycin and IV cefepime(last dose was administered at 6 AM 2 days prior), recent corneal transplant
approx 1 week ago, bronchiectasis diagnosed in 1999, history of Pseudomonas, Aspergillus via bronchoscopy, sputum culture requiring multiple courses of antibiotics throughout the year including azithromycin, tobramycin nebs,bronchiectasis, on
subcutaneous IVIG, asthma, COPD, hypertension, who presented to the emergency department secondary to worsening cough productive of sputum with temperature elevated at 99.4 �F to 99.6 �F at home, associated with increased crackles and wheezes per
the patient, dyspnea on exertion, and feeling of chest heaviness associated with this. Of note she was discharged from the hospital on August 21 2024 with a diagnosis of acute bronchitis, exacerbation of bronchiectasis for which sputum cultures were
growing Pseudomonas and she was continued on IV cefepime through August 30. Over the past several months she has been on and off steroids and antibiotics due to symptoms. She was being seen by infectious disease and pulmonary outpatient.
In the emergency department she had a CT scan of the chest performed
ED treatment included IV cefepime
Medical History
Past Medical History
Past Medical History: Reports Asthma, COPD, HTN and Other
Additional Past Medical History:
Bronchiectasis
Past Surgical History: Reports Cholecystectomy and Orthopedic (Right and left hip replacement)
Social History
Tobacco: Non-smoker
Alcohol: None
Personal:
Living: Alone
Family History
Family History: Not pertinent
Allergies / Home Medications
Allergies reflects when Allergies were last updated in [facility].
Home Medications with original date entered in [facility]
Allergy/Medication List:
Allergies
Allergy/AdvReac Type Severity Reaction Status Date / Time
neomycin Allergy Eye drops- Verified 09/02/24 01:09
inflammation
Opioids - Morphine Analogues Allergy Bronchiecta Verified 09/02/24 01:09
sis
Sulfa (Sulfonamide Allergy Rash Verified 09/02/24 01:09
Antibiotics)
Home Medications
losartan 100 mg-hydrochlorothiazide 25 mg tablet 1 tab PO DAILY Blood Pressure 09/13/23
arformoterol 15 mcg/2 mL solution for nebulization 15 mcg inhalation R BID Lung/Breathing Issues 01/19/24
magnesium oxide 140 mg capsule 140 mg PO HS ##0 01/19/24
albuterol sulfate 2.5 mg/3 mL (0.083 %) solution for nebulization 2.5 mg inhalation R BID Lung/Breathing Issues 08/17/24
albuterol sulfate 90 mcg/actuation aerosol inhaler 2 puff inhalation R Q6HPRN PRN SOB 08/17/24
alprazolam 0.25 mg tablet (Xanax) 0.125 mg PO HS 08/17/24
cyanocobalamin (vitamin B-12) 5,000 mcg/mL sublingual drops 5,000 mcg sublingual DAILY Supplement 08/17/24
immun glob G 4 gram/20 mL(20 %)-prol-IgA 0-50 mcg/mL subcutaneous soln (Hizentra) 8,000 mg (40 mL) SC QWEEK Immunoglobin deficiency #0 mL 08/21/24
ipratropium bromide 0.02 % solution for inhalation 0.5 mg (2.5 mL) inhalation R BID Lung/breathing issues #0 mL 08/21/24
lubiprostone 24 mcg capsule (Amitiza) 24 mcg PO BID Constipation #0 caps 08/21/24
pantoprazole 40 mg tablet,delayed release (Protonix) 40 mg PO DAILY Gastrointestinal issue #0 tabs 08/21/24
polyethylene glycol 3350 17 gram oral powder packet (HealthyLax) 25.5 g PO DAILY Constipation #0 ea 08/21/24
carboxymethylcellulose sodium 0.5 % eye drops (Refresh Tears) 1 drp LEFT EYE QID Eye condition 09/02/24
moxifloxacin 0.5 % eye drops 1 drp RIGHT EYE QID 09/02/24
prednisolone acetate 1 % eye drops,suspension 1 drp ophthalmic (eye) 6XD 09/02/24
rosuvastatin 5 mg tablet 5 mg PO MOWEFR High cholesterol 09/02/24
Review of Systems
-
A 12 point ROS was completed and negative except as noted: Yes
Physical Exam
Vital Signs
Vital Signs
Temp Pulse Resp BP Pulse Ox
98.6 F 79 16 149/68 95
09/02/24 01:06 09/02/24 01:06 09/02/24 01:06 09/02/24 01:06 09/02/24 01:06
Physical Exam
General: Well Developed, Well Nourished, No Apparent Distress, Comfortable and Conversant
HEENT: NormoCephalic, Anicteric and Moist mucous membranes
Respiratory: Rales (bilaterally upper and lower lung mason)
Cardiac: S1/S2 and Regular Rhythm
GI: Soft, Non Tender, Non Distended and Normal Bowel Sounds
Musculoskeletal: No Clubbing, No Cyanosis and No Edema
Skin: Warm and Dry
Neuro: AO x 3 and No Motor Deficits
Psych: Calm
Laboratory Results
-
09/01/24 22:13
09/01/24 22:13
Laboratory Results
Total Bilirubin 0.5 mg/dl (0.2-1.3) 09/01/24 22:13
AST 26 U/L (14-36) 09/01/24 22:13
ALT 25 U/L (0-35) 09/01/24 22:13
Alkaline Phosphatase 111 U/L (38-126) 09/01/24 22:13
Data Reviewed
-
CT Scan: Report Reviewed by me (CT chest -see below)
Impression/Plan
-
IMPRESSION:Patient is an 83-year-old woman with past medical history significant for Pseudomonas pneumonia previously treated with a 14-day course of IV vancomycin and IV cefepime(last dose was administered at 6 AM 2 days prior), recent corneal
transplant, bronchiectasis, asthma, COPD, hypertension, who presented to the emergency department secondary to worsening cough productive of sputum with temperature elevated at 99.4 �F to 99.6 �F at home, associated with increased crackles and
wheezes per the patient.
# Bronchopneumonia, concern is for bacterial pneumonia, possible persistent Pseudomonas PNA
*CT of the chest on 09/01 - preliminary report shows a new patchy area of consolidation and groundglass in the posterior right upper lobe that could reflect a bronchopneumonia.
Background of chronic endobronchial infection including extensive central lobar nodularity tree-in-bud opacities in the right middle lobe lingular bronchiectasis. Consider MAC infection.
-Will consult infectious disease and pulmonary
-Restart IV cefepime for now, first dose was given in the emergency department
-Continue supportive management
-continue home inhalers
#Recent corneal transplant
-has f/u apt Tuesday OP
-continue steroid eye drops and Moxifloxacin eye drops per OP regimen
#Essential Hypertension
-losartan/HCTZ
#Hyperlipidemia
-rosuvastatin
#Chronic back pain
#Anxiety
-xanax at night
DVT proph - lovenox
Full Code
[2024-09-02 06:25] LABS: % Basophils 0.6 % (0-2); % Eosinophils 1.4 % (0-6); % Immature Granulocytes 0.4 % (0-0.5); % Lymphocytes 13.4 % (20.5-51.1); % Monocytes 9.5 % (1.7-9.3); % Neutrophils 74.7 % (42.2-75.2); Absolute Basophils 0.1 10^3/uL (0-0.2); Absolute Eosinophils 0.1 10^3/uL (0-0.7); Absolute Lymphocytes 1.1 10^3/uL (1.2-3.4); Absolute Monocytes 0.8 10^3/uL (0.1-0.6); Absolute Neutrophils 5.9 10^3/uL (1.4-6.5); Hematocrit 35.4 % (37.0-47.0); Hemoglobin 11.9 g/dL (12.0-16.0); Mean Corp Hgb Conc. 33.6 g/dL (33.0-37.0); Mean Corpuscular Volume 86.1 fL (81.0-99.0); Mean Platelet Volume 9.6 fL (7.4-10.4); Nucleated Red Blood Cells % 0 %; Platelet Count 237 10^3/uL (130-400); Red Blood Cell Count 4.11 10^6/uL (4.20-5.40); Red Cell Dist. Width 13.1 % (11.5-14.5); White Blood Cell Count 7.9 10^3/uL (4.8-10.8)
[2024-09-02 06:50] LABS: Blood Urea Nitrogen 13 mg/dl (7-17); Calcium 9.6 mg/dl (8.4-10.2); Carbon Dioxide 26 mmol/L (22-30); Chloride 101 mmol/L (98-107); Estimated Creatinine Clearance 64 ml/min; Glucose 106 mg/dl (70-99); Potassium 4.4 mmol/L (3.5-5.1); Sodium 136 mmol/L (135-145); eGFR > 60.00
[2024-09-02] MEDS: NON-FORMULARY ITEM 1 MG INH (07:41)
[2024-09-02] MEDS: DUONEB 3 ML INH ×2 (07:44→19:46)
[2024-09-02] MEDS: MIRALAX 25.5 GRAMS PO (10:41)
[2024-09-02] MEDS: PROTONIX 40 MG PO (10:42)
[2024-09-02] MEDS: VITAMIN B-12 5000 MCG PO (10:42)
[2024-09-02] MEDS: ORETIC 25 MG PO (10:42)
[2024-09-02] MEDS: COZAAR 100 MG PO (10:42)
[2024-09-02] MEDS: REFRESH EYE DROPS (PF) 1 DROPS LEFT EYE ×4 (10:43→21:28)
[2024-09-02] MEDS: PRED FORTE 1% EYE DROPS 1 DROP OPHTH ×5 (10:43→21:28)
[2024-09-02] MEDS: STERILE WATER FOR INJECTION 10 ML IV ×2 (10:54→18:08)
[2024-09-02] MEDS: NON-FORMULARY ITEM RIGHT EYE (12:07)
[2024-09-02] MEDS: NON-FORMULARY ITEM 1 DROP RIGHT EYE ×3 (13:06→21:27)
--- NOTE | 2024-09-02 13:16 | W.PN.UPDATE ---
Update Note
Progress Note Update
Nonbillable note
Chart reviewed. Vitals lab imaging reviewed.
CT chest showing patient having right acquired bronchiectasis which has been stable. Patient has new tree-in-bud bilateral infiltrate which is suggestive of pneumonia
Patient has history of Pseudomonas isolation from sputum culture in the past
Respiratory culture collected this admit, result pending.
ID and pulmonary has been consulted
Patient is maintained on IV cefepime timing
Patient had few questions and answered with best knowledge
--- NOTE | 2024-09-02 13:44 | CON.ID ---
Consultation
-
Date/Time Consultation Requested: 09/02/2024 0553
Date/Time Consultation Performed: 09/02/2024 1335
Requesting Provider: Dr. Pino
Performing Provider: Dr. Gaffney
Reason for Consultation: Exacerbation of bronchiectasis
Chief Complaint / Past History
History of Present Illness
Bia Fong is a 83-year-old female with a significant past medical history of bronchiectasis being evaluated at the request of Dr. Pino regarding shortness of breath. History is obtained from chart review, along with patient interview.
The patient has a history of bronchiectasis (diagnosed in 1999), and follows with Dr Porter (Pulmonary) and Dr العلي (ID) at [facility] [place].
The patient is known to the Infectious Diseases service, having been seen in early August 2024, following development of increasing cough and shortness of breath. At that time she admitted to multiple courses of antibiotics over the prior several
months, including Azithromycin, levofloxacin, cefdinir and RAJEEV nebs. Her hospital course was significant for diagnosis of bronchiectasis flare and she was discharged on cefepime 2 g IV every 8 hours, to continue with antibiotics through 08/30. She
reports that on 08/28, she underwent cataract surgery, and in the postop period was advised to lay flat for extended periods of time. She notes that in the holding room of the cataract surgery area one of the nurses had a significant cough.
Yesterday, she noted a temperature of 99.6, and was generally not feeling well. She denied any sweats, but she reported she felt 'hot'. Her sputum production never resolved to baseline, but notes it is slightly up from where she was last week.
She denies any headache. She denies any chest pain. She denies any abdominal pain, nausea or vomiting. Following the development of her low-grade fever, she presented to the ER yesterday for further evaluation. Since admission, she has not had
any fevers. CT imaging reveals severe chronic bronchiectasis with multiple new small peripheral groundglass and solid opacities diffusely distributed throughout the lungs.
She presents to the ER on 09/01, with with complaints of increasing cough, and elevated temperature since completing her last antibiotic dose.
Past History
Additional Past Medical History:
Bronchiectasis
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
Hypogammaglobulinemia (weekly IVIG)
Hx of aspergillus via bronchoscopy,
Hx Pseudomonas via bronchoscopy
Recurrent pneumonia
Osteoarthritis
Hypertension
Asthma
Additional Past Surgical History:
Hip replacement
Allergy History:
neomycin Allergy (Verified 09/02/24 01:09)
Eye drops- inflammation
Opioids - Morphine Analogues Allergy (Verified 09/02/24 01:09)
Bronchiectasis
Sulfa (Sulfonamide Antibiotics) Allergy (Verified 09/02/24 01:09)
Rash
Medications Reviewed: Yes
Current Antibiotics:
Cefepime 2 g IV every 8 hours
Social History
Tobacco: Non-Smoker
Alcohol: None
Drug: None
Personal: Single
Family History
Family History: Not Pertinent
Review of Systems
Vital Signs
Temp Pulse Resp BP Pulse Ox
98.6 F 80 15 144/69 96
09/02/24 07:09 09/02/24 07:50 09/02/24 07:50 09/02/24 07:09 09/02/24 07:50
Physical Exam
Physical Exam
Constitutional: No Acute Distress, Comfortable, Chronically Ill, Non-toxic and Cachetic (mild)
Eyes: Pupils Equal, Pupils Round, No Conjunctival Hemorrhage and Sclera Anicteric
Cardiovascular: Regular Rate and S1/S2; Negative S3/S4
Pulmonary: Rhonchi (Scattered throughout), Coarse and Non Labored
Gastrointestinal: Soft, Non Tender and Non Distended
Extremities: Negative Edema, Cyanosis or Erythema
Neurological: Awake and Alert
Psychological: Calm
.
Lab / Diagnostic Study Results
09/02/24 06:00
09/02/24 06:00
Abs Immat Gran (auto) 0.0 10^3/uL (0-0.05) 09/02/24 06:00
Absolute Neuts (auto) 5.9 10^3/uL (1.4-6.5) 09/02/24 06:00
Absolute Lymphs (auto) 1.1 10^3/uL (1.2-3.4) L 09/02/24 06:00
Absolute Monos (auto) 0.8 10^3/uL (0.1-0.6) H 09/02/24 06:00
Absolute Basos (auto) 0.1 10^3/uL (0-0.2) 09/02/24 06:00
Immature Gran % 0.4 % (0-0.5) 09/02/24 06:00
Neutrophils % 74.7 % (42.2-75.2) 09/02/24 06:00
Lymphocytes % 13.4 % (20.5-51.1) L 09/02/24 06:00
Monocytes % 9.5 % (1.7-9.3) H 09/02/24 06:00
Eosinophils % 1.4 % (0-6) 09/02/24 06:00
Basophils % 0.6 % (0-2) 09/02/24 06:00
Microbiology Results
Micro:
09/01/24 21:56 Respiratory Culture - Pending
Sputum Gram Stain - Preliminary
Imaging:
09/02/2024 CT chest: Severe chronic verrucoid and cystic bronchiectasis in the right middle lobe and inferior segment of the lingula which is unchanged. There are multiple regions of peripheral tree-in-bud endobronchial opacity in both lungs
consistent with peripheral endobronchial infection. Multiple new groundglass and solid nodular airspace opacities distributed throughout the lungs which are similar in appearance to other stable opacities.
Assessment / Plan
Increasing cough
Possible flare of bronchiectasis (VS new pneumonia)
Bronchiectasis
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
Hypogammaglobulinemia (weekly IVIG)
Hx of aspergillus via bronchoscopy,
Hx Pseudomonas via bronchoscopy
Recurrent pneumonia
Osteoarthritis
Hypertension
Asthma
Recommendations:
Continue with empiric cefepime for today.
Await respiratory culture.
Follow white count and temperature curve.
--- NOTE | 2024-09-02 17:02 | CON.PUL ---
Addendum entered and electronically signed by Jesse Mancilla MD 09/03/24 00:31:
Patient was seen and evaluated on 09/02/2024
Original Note:
Consultation
Consultation Request
Date/Time Consultation Requested: 09/02/2024552
Date/Time Consultation Performed: 09/02/2024 - 1543
Requesting Provider: Dr. Pino
Performing Provider: Dr. Mancilla
Reason for Consultation: SOB/pneumonia
Medical History
-
Chief Complaint: Fever + cough
History of Present Illness:
83-year-old female with a past medical history of bronchiectasis, asthma, immunoglobulin deficiency, cystic fibrosis carrier, hypertension, history of pneumonia and history of Pseudomonas + Aspergillus who presents with fever + productive cough for
few days. 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 In the ER here she has been afebrile. She has been on room air saturating 95% or above. Initial labs show normal WBC at 10.3, and Hb 11.1. Respiratory culture collected, and imaging
shows multiple new peripheral groundglass and solid opacities with areas of increased tree-in-bud nodular opacities suspicious for an acute infection versus inflammatory pneumonitis. She has severe chronic bronchiectasis in the right middle lobe +
lingula. She was given cefepime and admitted to the hospitalist service. Pulmonary service now consulted for additional management/recommendations.
When I saw the pt she was resting in bed in NAD. Currently feels well. On room air breathing comfortably. Denies chest pain, OSORIO, abd pain, N/V/f/c.
Of note, patient previously followed with us with last visit in September [address] Olivia. At the time she had fatigue and suspected low-grade fevers and had received multiple courses of Levaquin and prednisone. Prior sputum culture showed normal
respiratory jose maria with scant fungal organism. She was told to follow-up with [place] and the [facility] and to continue with nebulized albuterol, Mucomyst, Brovana, tobramycin, and budesonide. She previously was on low-dose Zithromax but this
was discontinued as she did not feel improvement with this.
PMHx: History of viral pneumonia, asthma, bronchiectasis, hip pain, hip placement, jaw pain, hypertension, elevated ANCA level, cystic fibrosis carrier
PSHx: Cataract surgery, left and right hip replacement, endoscopy, bronchoscopy, laparoscopic cholecystectomy with intraoperative cholangiogram
Past Medical History
Past Medical History: Other (Above as per HPI)
Past Surgical History: Other (Above as per HPI)
Social History
Tobacco: Non-smoker
Alcohol: None
Drug: None
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
Family History
Family History: CAD (Father), Diabetes (Brother) and Other (Father: Pulmonary fibrosis; mother: Stroke + diverticulitis; brother: Valve replacement)
Allergies / Home Medications
Allergies
Allergy/AdvReac Type Severity Reaction Status Date / Time
neomycin Allergy Eye drops- Verified 09/02/24 01:09
inflammation
Opioids - Morphine Analogues Allergy Bronchiecta Verified 09/02/24 01:09
sis
Sulfa (Sulfonamide Allergy Rash Verified 09/02/24 01:09
Antibiotics)
Home Medications
�Medication �Instructions �Recorded �Confirmed �Last Taken �Type
losartan 100 1 tab PO DAILY Blood Pressure 09/13/23 09/02/24 01/19/24 07:00 History
mg-hydrochlorothiazide 25 mg tablet
arformoterol 15 mcg/2 mL solution 15 mcg inhalation R BID 01/19/24 09/02/24 01/20/24 06:00 History
for nebulization Lung/Breathing Issues
magnesium oxide 140 mg capsule 140 mg PO HS ##0 01/19/24 09/02/24 01/19/24 18:00 History
albuterol sulfate 2.5 mg/3 mL 2.5 mg inhalation R BID 08/17/24 09/02/24 Unknown History
(0.083 %) solution for nebulization Lung/Breathing Issues
albuterol sulfate 90 mcg/actuation 2 puff inhalation R Q6HPRN PRN SOB 08/17/24 09/02/24 Unknown History
aerosol inhaler
alprazolam 0.25 mg tablet (Xanax) 0.125 mg PO HS 08/17/24 09/02/24 08/16/24 History
cyanocobalamin (vitamin B-12) 5,000 mcg sublingual DAILY 08/17/24 09/02/24 Unknown History
5,000 mcg/mL sublingual drops Supplement
immun glob G 4 gram/20 mL(20 8,000 mg (40 mL) SC QWEEK 08/21/24 09/02/24 Unknown Rx
%)-prol-IgA 0-50 mcg/mL Immunoglobin deficiency #0 mL
subcutaneous soln (Hizentra)
ipratropium bromide 0.02 % 0.5 mg (2.5 mL) inhalation R BID 08/21/24 09/02/24 01/20/24 07:00 Rx
solution for inhalation Lung/breathing issues #0 mL
lubiprostone 24 mcg capsule 24 mcg PO BID Constipation #0 caps 08/21/24 09/02/24 Unknown Rx
(Amitiza)
pantoprazole 40 mg tablet,delayed 40 mg PO DAILY Gastrointestinal 08/21/24 09/02/24 Unknown Rx
release (Protonix) issue #0 tabs
polyethylene glycol 3350 17 gram 25.5 g PO DAILY Constipation #0 ea 08/21/24 09/02/24 01/19/24 10:00 Rx
oral powder packet (HealthyLax)
carboxymethylcellulose sodium 0.5 1 drp LEFT EYE QID Eye condition 09/02/24 09/02/24 Unknown History
% eye drops (Refresh Tears)
dornase marlo 1 mg/mL solution for 2.5 mg inhalation DAILY 09/02/24 09/02/24 09/01/24 History
inhalation (Pulmozyme)
moxifloxacin 0.5 % eye drops 1 drp RIGHT EYE QID 09/02/24 09/02/24 Unknown History
prednisolone acetate 1 % eye 1 drp ophthalmic (eye) 6XD 09/02/24 09/02/24 Unknown History
drops,suspension
rosuvastatin 5 mg tablet 5 mg PO MOWEFR High cholesterol 09/02/24 09/02/24 Unknown History
Review of Systems
-
History Source: Patient
All other systems: Negative unless noted
Vitals / Labs / Diagnostic Testing
Vital Signs
Temp Pulse Resp BP Pulse Ox
98.6 F 80 15 144/69 96
09/02/24 07:09 09/02/24 07:50 09/02/24 07:50 09/02/24 07:09 09/02/24 07:50
Lab Data
09/02/24 06:00
09/02/24 06:00
Diagnostic Testing:
Physical Exam
-
HEENT: Normocephalic and Anicteric
Cardiovascular: S1/S2 and Peripheral Edema (negative)
Respiratory: Wheeze (negative), Rales (bilateral), Rhonchi (bilaterally), Non-Labored Respirations and Other (Inspiratory squeaks heard bilaterally)
GI: Soft, Non Distended, Non Tender and Normal Bowel Sounds
Neurology: AO x 3 and Tremors (negative)
Skin: Warm and Dry
General: Respiratory Distress (negative), Comfortable, Fever (negative) and Chills (negative)
Assessment
-
Assessment: 83-year-old female with a past medical history of bronchiectasis, asthma, immunoglobulin deficiency, cystic fibrosis carrier, hypertension, history of pneumonia and history of Pseudomonas + Aspergillus who presents with fever +
productive cough for few days. 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 In the ER here she has been afebrile. She has been on room air saturating 95% or above. Initial labs show normal WBC at 10.3, and Hb 11.1. Respiratory culture
collected, and imaging shows multiple new peripheral groundglass and solid opacities with areas of increased tree-in-bud nodular opacities suspicious for an acute infection versus inflammatory pneumonitis. She has severe chronic bronchiectasis in
the right middle lobe + lingula. She was given cefepime and admitted to the hospitalist service. Pulmonary service now consulted for additional management/recommendations.
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
Impression:
#Multifocal pneumonia/bronchiolitis
#History of bronchiectasis (diagnosed in 1999) � CF carrier, prior bronchoscopy showed Pseudomonas + Aspergillus and has been treated with intermittent tobramycin, Levaquin and azithromycin, follows with ID at [place] as well as immunology and started
on subcutaneous IVIG in July 2024 due to hypogammaglobulinemia
#Anemia
#Asthma
#HTN
Plan:
- Imaging shows multiple peripheral groundglass and solid opacities which is likely due to multifocal pneumonia in the setting of chronic bronchiectasis with endobronchial impaction
- When current CT chest imaging is compared to prior CT chest on 08/15/2024, she now has new patchy nodular opacities in the bases bilaterally as well as in the posterior right upper lobe, with small nodular patchy opacities/tree-in-bud which has
increased in the lower lobes
- She has chronic severe bronchiectasis in the right middle lobe + lingula
- She was recently hospitalized 08/17 - 08/21, and respiratory Cx on 08/17/2024 grew tobramycin-resistant Pseudomonas, and she was sent home with 2 week course of cefepime. She says that on the last day of her cefepime that she started to feel 'off,'
and increasingly worsened after that with subjective fevers and SOB. Her last dose of cefepime was this past (08/30/2024)
- Now with imaging showing progressive opacities, this is concerning for a resistant infection vs another bug that we are possibly not treating (i.e. fungal). Recommend bronchoscopy with BAL for deep lung culture. She is amenable to this,
although also nervous as she reminisces about a bronch she had at [place] 4 years ago where she developed pneumonia after the procedure that she dealt with for 2 weeks. She claims it was because she was instilled too much fluid for her BAL - she would
like me to only instill 10cc into her lungs, if possible.
- Continue with antibiotics, currently on cefepime
- Pulmonary toilet is mae: Continue with nebulized dornase, DuoNebs, and can consider adding Mucinex
- Recent respiratory culture from 08/17/2024 has grown Pseudomonas aeruginosa (only resistant to tobramycin)
- ID consulted and recs appreciated
- Follow-up respiratory culture collected yesterday (09/01)
- When patient was last seen by our service in August 2024 during last hospitalization, she was recommended to revisit immunology + ID as an outpatient at [place]. Recommended to check sputum culture frequently as an outpatient to identify her bug
burden.
- She previously could not tolerate vest due to back pain and she was using an IPV device at home as well as 3% saline which is what she preferred
- She needs to continue with IVIG injections
- Maintain SpO2 >90-94% with supplemental O2 as needed
- prn nebulized bronchodilators - not currently bronchospastic
- Incentive spirometer encouraged q1hr while awake
- Replete electrolytes with K>4, Mg>2
- Trend H/H and transfuse if needed to keep Hb>7g/dL; keep plt>20k, unless there is concern for bleeding then keep plt>50k
- Maintain euglycemia with goal BG >100 and <180
- DVT ppx
Pulmonary service will continue to follow along.
Data:
CT Chest without contrast 09/02/2024:
1. Multiple new small peripheral ground-glass and solid opacities diffusely distributed throughout the lungs most suggestive ACUTE PERIPHERAL ENDOBRONCHIAL INFECTION and MILD MULTIFOCAL PNEUMONIA. An acute inflammatory pneumonitis or pulmonary
hemorrhage are considered less likely.
2. Extensive chronic peripheral endobronchial infection throughout both lungs with many regions of peripheral 'tree-in-bud' endobronchial opacity. Atypical mycobacterial infection is a strong diagnostic possibility.
3. SEVERE CHRONIC BRONCHIECTASIS in the RIGHT MIDDLE LOBE and LINGULA.
4. Severe calcific atherosclerotic plaque in the coronary arteries.
5. Small pericardial effusion.
Total time spent today was 57 minutes for this encounter. Time includes reviewing laboratory test/imaging results, reviewing pertinent medical records, obtaining and reviewing medical history, performing an appropriate exam, ordering medications,
tests and procedures. Time also includes documentation of this encounter, coordinating patient care and communicating with other healthcare professionals. Total time does not include separately billed tests performed on this date of service.
[2024-09-02] MEDS: LOVENOX 40 MG SC (18:07)
[2024-09-02] MEDS: TUMS CHEWABLE TABLET 400 MG PO (20:30)
[2024-09-02] MEDS: MAGNESIUM OXIDE PO (21:27)
[2024-09-02] MEDS: XANAX 0.125 MG PO (21:29)
[2024-09-03] VITALS (7 sets, daily range): BP systolic 129–149; BP diastolic 58–76
[2024-09-03] MEDS: MAXIPIME 2000 MG IV ×3 (01:50→17:22)
[2024-09-03] MEDS: STERILE WATER FOR INJECTION 10 ML IV ×3 (01:50→17:22)
[2024-09-03] MEDS: PRED FORTE 1% EYE DROPS 1 DROP OPHTH ×5 (06:06→22:05)
[2024-09-03 07:31] LABS: Hematocrit 35.5 % (37.0-47.0); Hemoglobin 11.9 g/dL (12.0-16.0); Mean Corp Hgb Conc. 33.5 g/dL (33.0-37.0); Mean Corpuscular Volume 86.6 fL (81.0-99.0); Mean Platelet Volume 9.6 fL (7.4-10.4); Platelet Count 215 10^3/uL (130-400); White Blood Cell Count 6.2 10^3/uL (4.8-10.8)
[2024-09-03] MEDS: DUONEB 3 ML INH (07:45)
[2024-09-03] MEDS: NON-FORMULARY ITEM 1 MG INH (08:05)
[2024-09-03] MEDS: ORETIC 25 MG PO (08:42)
[2024-09-03] MEDS: VITAMIN B-12 PO ×2 (08:42→08:52)
[2024-09-03] MEDS: REFRESH EYE DROPS (PF) 1 DROPS LEFT EYE ×4 (08:42→22:23)
[2024-09-03] MEDS: MIRALAX 17 GRAMS PO (08:42)
[2024-09-03] MEDS: PROTONIX 40 MG PO (08:42)
[2024-09-03] MEDS: COZAAR 100 MG PO (08:42)
[2024-09-03] MEDS: NON-FORMULARY ITEM 1 DROP RIGHT EYE ×4 (08:43→22:22)
[2024-09-03] MEDS: CRESTOR PO ×2 (08:47→08:52)
[2024-09-03 09:05] LABS: Blood Urea Nitrogen 17 mg/dl (7-17); Calcium 9.8 mg/dl (8.4-10.2); Carbon Dioxide 24 mmol/L (22-30); Chloride 102 mmol/L (98-107); Estimated Creatinine Clearance 64 ml/min; Glucose 106 mg/dl (70-99); Potassium 4.1 mmol/L (3.5-5.1); Sodium 136 mmol/L (135-145); eGFR > 60.00
--- NOTE | 2024-09-03 09:05 | W.PN.PUL3 ---
Today's Communication / Plan
-
- Discontinue ipratropium nebulized in view of significant thick impacted secretions noted on CT
- Start airway clearance with albuterol nebulized 3 times daily along with hypertonic saline 3 times daily
- Add oral Mucinex 600 mg p.o. twice daily to help thin out secretions
- Follow-up on cultures, continue antibiotics
- N.p.o., tentative bronchoscopy and BAL today at 4 PM
Assessment
-
Assessment: 83-year-old female with a past medical history of bronchiectasis, asthma, immunoglobulin deficiency, cystic fibrosis carrier, hypertension, history of pneumonia and history of Pseudomonas + Aspergillus who presents with fever +
productive cough for few days. 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 In the ER here she has been afebrile. She has been on room air saturating 95% or above. Initial labs show normal WBC at 10.3, and Hb 11.1. Respiratory culture
collected, and imaging shows multiple new peripheral groundglass and solid opacities with areas of increased tree-in-bud nodular opacities suspicious for an acute infection versus inflammatory pneumonitis. She has severe chronic bronchiectasis in
the right middle lobe + lingula. She was given cefepime and admitted to the hospitalist service. Pulmonary service now consulted for additional management/recommendations.
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
#1. Acute exacerbation of chronic bronchiectasis along with multifocal pneumonia
-Known history of CF carrier status
-Known colonization with Pseudomonas and Aspergillus and has been treated with intermittent tobramycin, Levaquin/azithromycin, follows up with infectious disease service at [facility]. Continue IV cefepime for now, follow-up on cultures. Patient
recently completed 2 weeks of IV cefepime on 08/30. Bronchoscopy and BAL for further evaluation today.
-Start airway clearance with hypertonic saline 3 times daily along with albuterol 3 times a day. Add Mucinex to help thin out secretions. Discontinue DuoNeb to avoid secretion thickening due to ipratropium. Acapella device. Patient has not
tolerated vest therapy in the past due to back pain.
#2. History of hypogammaglobulinemia
-Follows up with immunology services outpatient, currently on IVIG replacement, started in July 2024
#3. History of asthma.
- Lately has been on subcutaneous Tezspire, last dosage about a month ago
DVT prophylaxis with Lovenox 40.
Total time spent on this consultation/encounter _46___ minutes which includes review of history, physical exam, medications, laboratory data, personal review of imaging, extensive review of outpatient records, discussion with care team and
respiratory therapy.
Data:
CT Chest without contrast 09/02/2024:
1. Multiple new small peripheral ground-glass and solid opacities diffusely distributed throughout the lungs most suggestive ACUTE PERIPHERAL ENDOBRONCHIAL INFECTION and MILD MULTIFOCAL PNEUMONIA. An acute inflammatory pneumonitis or pulmonary
hemorrhage are considered less likely.
2. Extensive chronic peripheral endobronchial infection throughout both lungs with many regions of peripheral 'tree-in-bud' endobronchial opacity. Atypical mycobacterial infection is a strong diagnostic possibility.
3. SEVERE CHRONIC BRONCHIECTASIS in the RIGHT MIDDLE LOBE and LINGULA.
4. Severe calcific atherosclerotic plaque in the coronary arteries.
5. Small pericardial effusion.
Subjective Data
-
Date of Service:
Date of Service: September 03, 2024
Subjective:
Patient comfortably lying in bed in no acute distress. Continues to have cough.
Review of Systems
Genitourinary: Other (All 14 systems reviewed and negative except as stated above in the history of present illness.)
Objective Data
Data Reviewed
Vital Signs / I&O / Oxygen:
Vital Signs
Temp Pulse Resp BP Pulse Ox
97.6 F 71 14 132/62 95
09/03/24 07:00 09/03/24 07:53 09/03/24 07:53 09/03/24 07:00 09/03/24 07:53
Intake and Output
0609/03/24 09/04/24
06:59 06:59 06:59
Intake Total 240 / 240
Balance 240 / 240
SaO2 95
Physical Exam
General: Comfortable
HEENT: Normocephalic
Cardiovascular: S1-S2 and Irregular Rhythm
Respiratory: Rhonchi (Bilateral rhonchi on exam)
GI: Soft and Non Distended
Neurology: Awake and Alert
Skin: Warm
Labs/Micro/Reports
Lab Data
09/03/24 07:16
09/03/24 07:16
Microbiology
09/01/24 21:56 Sputum Gram Stain - Preliminary
[2024-09-03] MEDS: MUCINEX PO ×3 (10:27→20:11)
--- NOTE | 2024-09-03 11:07 | CM ---
wind energy project manager reviewed patient's chart and met with patient and patient was admitted under OBS, LEWIS letter provided to patient signed and placed on chart, patient lives alone in a one story home no steps to enter. Patient has no dme, patient drives,
patient receives weekly IVIG in home, and just completed home infusion with [facility]. Plan home when stable.
PCP: Shannan Escobar
Pharmacy: [facility] in [place]
Plan; Home when stable.
[2024-09-03] MEDS: VENTOLIN NEBULES 2.5 MG INH ×2 (13:49→20:13)
[2024-09-03] MEDS: SODIUM CHLORIDE 3% FOR INHALATION 1 VIAL INH (13:50)
--- NOTE | 2024-09-03 14:30 | W.PN.HOSP.TC ---
Today's Communication/Plan
-
For bronchoscopy at 4 PM today
Assessment / Plan
Assessment / Plan
83-year-old woman with past medical history significant for Pseudomonas pneumonia previously treated with a 14-day course of IV vancomycin and IV cefepime(last dose was administered at 6 AM 2 days prior), recent corneal transplant, bronchiectasis,
asthma, COPD, hypertension, who presented to the emergency department secondary to worsening cough productive of sputum with temperature elevated at 99.4 �F to 99.6 �F at home, associated with increased crackles and wheezes per the patient.
# Bronchopneumonia, concern is for bacterial pneumonia, possible persistent Pseudomonas PNA
*CT of the chest on 09/01 - preliminary report shows a new patchy area of consolidation and groundglass in the posterior right upper lobe that could reflect a bronchopneumonia.
Background of chronic endobronchial infection including extensive central lobar nodularity tree-in-bud opacities in the right middle lobe lingular bronchiectasis. Consider MAC infection.
Appreciate ID and pulmonology input
Continue IV cefepime, for bronchoscopy with BAL today
Follow-up on cultures, treat with Mucinex, hypertonic saline nebs, albuterol nebs
#Recent corneal transplant
Outpatient follow-up appointment scheduled for Tuesday
Continue steroid eyedrops, moxifloxacin eyedrops per outpatient regimen
#Essential Hypertension
Continue hydrochlorothiazide and losartan
#Hyperlipidemia
Continue statin
#Chronic back pain
Tylenol as needed
#Anxiety
Continue home Xanax at bedtime
DVT prophylaxis�subcu Lovenox
Full Code
Total time spent to see the patient on the floor, examine the patient, review data and lab results, discuss treatment plan with patient, nursing staff around 40 minutes.
Physical Exam
General: No acute distress
HEENT: Normocephalic, Atraumatic, EOMI, MMM
Respiratory: Bilateral rhonchi
Cardiac: Normal S1/S2, Regular Rate and Rhythm
GI: Soft, Nontender, Nondistended, Normal Bowel Sounds
Extremities: No Clubbing, Cyanosis, or Edema
Neuro: Nonfocal/Grossly Intact
Psych: Calm, Cooperative
Anticipated Discharge: > 48 hours
Subjective/Interval History
-
Date of Service: September 03, 2024
Patient reports more coughing, and bringing up more mucus. Reports breathing is improved. Denies chest pain, no nausea, no vomiting. No fever.
Objective Data
-
Labs:
Laboratory Results
09/03/24
07:16
WBC 6.2
Hgb 11.9 L
Hct 35.5 L
Plt Count 215
Sodium 136
Potassium 4.1
Chloride 102
Carbon Dioxide 24
BUN 17
Creatinine 0.6
Glucose 106 H
Calcium 9.8
Vital Signs:
Vital Signs
Temp Pulse Resp BP Pulse Ox
97.6 F 79 14 132/62 93
09/03/24 07:00 09/03/24 13:54 09/03/24 13:54 09/03/24 07:00 09/03/24 13:54
I&O
09/02/24 09/03/24 09/04/24
06:59 06:59 06:59
Intake Total 240 / 240
Balance 240 / 240
--- NOTE | 2024-09-03 15:12 | W.PN.ID1 ---
Date of Service
Date of Service: September 03, 2024
Today's Communication
Continue antibiotics. Await bronchoscopy.
Assessment / Plan
Increasing cough
Possible flare of bronchiectasis (VS new pneumonia)
Bronchiectasis
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
Hypogammaglobulinemia (weekly IVIG)
Hx of aspergillus via bronchoscopy,
Hx Pseudomonas via bronchoscopy
Recurrent pneumonia
Osteoarthritis
Hypertension
Asthma
Recommendations:
Continue with empiric cefepime for today. Gram-negative rods noted on sputum culture. Patient with prior history of MDR Pseudomonas, although most recent isolate susceptible to cefepime.
Await respiratory culture.
Follow white count and temperature curve.
Patient for bronchoscopy later today.
Subjective / Review of Systems
Patient seen and examined. Reports ongoing cough
Vital Signs / Physical Exam
Vital Signs
Vital Signs
Temp Pulse Resp BP Pulse Ox
97.6 F 79 14 132/62 93
09/03/24 07:00 09/03/24 13:54 09/03/24 13:54 09/03/24 07:00 09/03/24 13:54
Physical Exam
Constitutional: No Acute Distress, Comfortable and Non-toxic
Eyes: Sclera Anicteric
Cardiovascular: S1/S2; Negative S3/S4
Pulmonary: Rhonchi (Scattered and throughout) and Non Labored
Gastrointestinal: Soft, Non Tender and Non Distended
Neurological: Awake and Alert
Psychological: Calm
Objective Data
Lab Data
Lab Results
09/03/24 07:16
09/03/24 07:16
Estimated Creat Clear 64 ml/min 09/03/24 07:16
Total Bilirubin 0.5 mg/dl (0.2-1.3) 09/01/24 22:13
AST 26 U/L (14-36) 09/01/24 22:13
ALT 25 U/L (0-35) 09/01/24 22:13
Alkaline Phosphatase 111 U/L (38-126) 09/01/24 22:13
Most recent labs reviewed.
Micro Results:
09/01/24 21:56 Respiratory Culture - Preliminary
Sputum Gram negative bacilli
Gram Stain - Preliminary
Imaging:
09/02/2024 CT chest: Severe chronic verrucoid and cystic bronchiectasis in the right middle lobe and inferior segment of the lingula which is unchanged. There are multiple regions of peripheral tree-in-bud endobronchial opacity in both lungs
consistent with peripheral endobronchial infection. Multiple new groundglass and solid nodular airspace opacities distributed throughout the lungs which are similar in appearance to other stable opacities.
Care Review
Plan reviewed with: Physician (Pulmonary)
[2024-09-03] MEDS: PRED FORTE 1% EYE DROPS OPHTH (15:20)
[2024-09-03] MEDS: LOVENOX 40 MG SC (17:21)
[2024-09-03] MEDS: SODIUM CHLORIDE 3% FOR INHALATION INH (20:17)
[2024-09-03] MEDS: MAGNESIUM OXIDE 250 MG PO (22:04)
[2024-09-03] MEDS: XANAX 0.125 MG PO (22:04)
[2024-09-04] MEDS: MAXIPIME 2000 MG IV ×3 (02:11→17:58)
[2024-09-04] MEDS: STERILE WATER FOR INJECTION 10 ML IV ×3 (02:12→17:59)
[2024-09-04] MEDS: PRED FORTE 1% EYE DROPS 1 DROP OPHTH ×6 (06:12→20:37)
[2024-09-04] MEDS: NON-FORMULARY ITEM 1 DROP RIGHT EYE ×4 (06:13→21:41)
[2024-09-04 07:15] VITALS: BP 135/58
[2024-09-04] MEDS: VENTOLIN NEBULES 2.5 MG INH ×3 (07:52→19:18)
[2024-09-04] MEDS: SODIUM CHLORIDE 3% FOR INHALATION 1 VIAL INH (07:52)
[2024-09-04] MEDS: NON-FORMULARY ITEM 1 MG INH (08:03)
[2024-09-04] MEDS: REFRESH EYE DROPS (PF) 1 DROPS LEFT EYE ×4 (08:53→21:39)
[2024-09-04] MEDS: MIRALAX 25.5 GRAMS PO (08:54)
[2024-09-04] MEDS: MUCINEX 600 MG PO ×2 (08:56→20:36)
[2024-09-04] MEDS: ORETIC 25 MG PO (08:57)
[2024-09-04] MEDS: COZAAR 100 MG PO (08:57)
[2024-09-04] MEDS: PROTONIX 40 MG PO (08:57)
[2024-09-04] MEDS: VITAMIN B-12 PO (08:59)
--- NOTE | 2024-09-04 09:11 | W.PN.HOSP.TC ---
Today's Communication/Plan
-
Continue IV cefepime
Assessment / Plan
Assessment / Plan
83-year-old woman with past medical history significant for Pseudomonas pneumonia previously treated with a 14-day course of IV vancomycin and IV cefepime(last dose was administered at 6 AM 2 days prior), recent corneal transplant, bronchiectasis,
asthma, COPD, hypertension, who presented to the emergency department secondary to worsening cough productive of sputum with temperature elevated at 99.4 �F to 99.6 �F at home, associated with increased crackles and wheezes per the patient.
# Bronchopneumonia, concern is for bacterial pneumonia, possible persistent Pseudomonas PNA
*CT of the chest on 09/01 - preliminary report shows a new patchy area of consolidation and groundglass in the posterior right upper lobe that could reflect a bronchopneumonia.
Background of chronic endobronchial infection including extensive central lobar nodularity tree-in-bud opacities in the right middle lobe lingular bronchiectasis. Consider MAC infection.
Appreciate ID and pulmonology input, status post bronchoscopy with BAL 09/03
Cultures growing gram-negative bacilli
Continue IV cefepime, follow-up on cultures
Continue Mucinex, hypertonic saline nebs, albuterol nebs
#Recent corneal transplant
Outpatient follow-up appointment scheduled for Tuesday
Continue steroid eyedrops, moxifloxacin eyedrops per outpatient regimen
#Essential Hypertension
Continue hydrochlorothiazide and losartan
#Hyperlipidemia
Continue statin
#Chronic back pain
Tylenol as needed
#Anxiety
Continue home Xanax at bedtime
DVT prophylaxis�subcu Lovenox
Full Code
Total time spent to see the patient on the floor, examine the patient, review data and lab results, discuss treatment plan with patient, nursing staff around 38 minutes.
Physical Exam
General: No acute distress
HEENT: Normocephalic, Atraumatic, EOMI, MMM
Respiratory: Bilateral rhonchi
Cardiac: Normal S1/S2, Regular Rate and Rhythm
GI: Soft, Nontender, Nondistended, Normal Bowel Sounds
Extremities: No Clubbing, Cyanosis, or Edema
Neuro: Nonfocal/Grossly Intact
Psych: Calm, Cooperative
Anticipated Discharge: > 48 hours
Subjective/Interval History
-
Date of Service: September 04, 2024
Patient continues to cough. Reports her mucus production has improved. Denies shortness of breath at rest. No fever, no chest pain, no vomiting.
Objective Data
-
Labs:
Laboratory Results
09/04/24
06:00
WBC Pending
Hgb Pending
Hct Pending
Plt Count Pending
Sodium Pending
Potassium Pending
Chloride Pending
Carbon Dioxide Pending
BUN Pending
Creatinine Pending
Glucose Pending
Calcium Pending
Vital Signs:
Vital Signs
Temp Pulse Resp BP Pulse Ox
97.5 F 71 14 135/58 96
09/04/24 07:15 09/04/24 08:00 09/04/24 08:00 09/04/24 07:15 09/04/24 08:00
I&O
09/03/24 09/04/24 09/05/24
06:59 06:59 06:59
Intake Total 240 / 240 900 / 900
Balance 240 / 240 900 / 900
--- NOTE | 2024-09-04 10:13 | CM ---
Chart reviewed and Bronchoscopy completed yesterday, patient has switched to inpatient and onsite case manager met with patient and patient has signed IMM. Plan is to home when stable.
Plan; Home when stable.
[2024-09-04 10:18] LABS: Hemoglobin 11.1 g/dL (12.0-16.0); Mean Corp Hgb Conc. 33.6 g/dL (33.0-37.0); Mean Corpuscular Hgb 29.1 pg (27.0-31.0); Mean Corpuscular Volume 86.4 fL (81.0-99.0); Mean Platelet Volume 9.9 fL (7.4-10.4); Platelet Count 216 10^3/uL (130-400); Red Blood Cell Count 3.82 10^6/uL (4.20-5.40); Red Cell Dist. Width 12.9 % (11.5-14.5); White Blood Cell Count 7.8 10^3/uL (4.8-10.8)
[2024-09-04 10:40] LABS: Blood Urea Nitrogen 21 mg/dl (7-17); Calcium 9.4 mg/dl (8.4-10.2); Carbon Dioxide 24 mmol/L (22-30); Chloride 104 mmol/L (98-107); Estimated Creatinine Clearance 64 ml/min; Glucose 186 mg/dl (70-99); Potassium 3.7 mmol/L (3.5-5.1); Sodium 135 mmol/L (135-145); eGFR > 60.00
--- NOTE | 2024-09-04 10:46 | W.PN.PUL3 ---
Today's Communication / Plan
-
- DC hypertonic saline, start Mucomyst nebulized twice a day along with albuterol
- Follow-up on sputum culture as well as BAL results
Assessment
-
Assessment: 83-year-old female with a past medical history of bronchiectasis, asthma, immunoglobulin deficiency, cystic fibrosis carrier, hypertension, history of pneumonia and history of Pseudomonas + Aspergillus who presents with fever +
productive cough for few days. 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 In the ER here she has been afebrile. She has been on room air saturating 95% or above. Initial labs show normal WBC at 10.3, and Hb 11.1. Respiratory culture
collected, and imaging shows multiple new peripheral groundglass and solid opacities with areas of increased tree-in-bud nodular opacities suspicious for an acute infection versus inflammatory pneumonitis. She has severe chronic bronchiectasis in
the right middle lobe + lingula. She was given cefepime and admitted to the hospitalist service. Pulmonary service now consulted for additional management/recommendations.
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
#1. Acute exacerbation of chronic bronchiectasis along with multifocal pneumonia
-Known history of CF carrier status
-Known colonization with Pseudomonas and Aspergillus and has been treated with intermittent tobramycin, Levaquin/azithromycin, follows up with infectious disease service at [facility]. Continue IV cefepime for now, follow-up on cultures. Patient
recently completed 2 weeks of IV cefepime on 08/30.
-S/p bronchoscopy and BAL on 09/03, follow-up on bacterial, fungal and AFB stains and cultures. Sputum culture showing gram-negative rods.
- Continue airway clearance, patient feels that hypertonic saline tends to irritate her mucosa, will switch to Mucomyst twice a day along with albuterol twice daily. Acapella device. Patient has not tolerated vest therapy in the past due to back
pain. Patient uses IPV/intrapulmonary percussive ventilation at home to help with mucus clearance.
#2. History of hypogammaglobulinemia
-Follows up with immunology services outpatient, currently on IVIG replacement, started in July 2024
#3. History of asthma.
- Lately has been on subcutaneous Tezspire, last dosage about a month ago
DVT prophylaxis with Lovenox 40.
Total time spent on this consultation/encounter _45___ minutes which includes review of history, physical exam, medications, laboratory data, personal review of imaging, extensive review of outpatient records, discussion with care team and
respiratory therapy.
Data:
CT Chest without contrast 09/02/2024:
1. Multiple new small peripheral ground-glass and solid opacities diffusely distributed throughout the lungs most suggestive ACUTE PERIPHERAL ENDOBRONCHIAL INFECTION and MILD MULTIFOCAL PNEUMONIA. An acute inflammatory pneumonitis or pulmonary
hemorrhage are considered less likely.
2. Extensive chronic peripheral endobronchial infection throughout both lungs with many regions of peripheral 'tree-in-bud' endobronchial opacity. Atypical mycobacterial infection is a strong diagnostic possibility.
3. SEVERE CHRONIC BRONCHIECTASIS in the RIGHT MIDDLE LOBE and LINGULA.
4. Severe calcific atherosclerotic plaque in the coronary arteries.
5. Small pericardial effusion.
Subjective Data
-
Date of Service:
Date of Service: September 04, 2024
Subjective:
Patient currently on room air, lying in bed in no acute distress, reports improving cough and expectoration
Review of Systems
Genitourinary: Other (No new pulmonary symptoms reported)
Objective Data
Data Reviewed
Vital Signs / I&O / Oxygen:
Vital Signs
Temp Pulse Resp BP Pulse Ox
97.5 F 71 14 135/58 96
09/04/24 07:15 09/04/24 08:00 09/04/24 08:00 09/04/24 07:15 09/04/24 08:00
Intake and Output
09/03/24 09/04/24 09/05/24
06:59 06:59 06:59
Intake Total 240 / 240 900 / 900
Balance 240 / 240 900 / 900
SaO2 96
Nasal Cannula flow liters per 2
minute
Physical Exam
General: Comfortable
HEENT: Normocephalic
Cardiovascular: S1-S2 and Irregular Rhythm
Respiratory: Rhonchi (Bilateral rhonchi on exam)
GI: Soft and Non Distended
Neurology: Awake and Alert
Skin: Warm
Labs/Micro/Reports
Lab Data
09/04/24 09:56
09/04/24 09:56
Microbiology
09/01/24 21:56 Sputum Respiratory Culture - Preliminary
Gram negative bacilli
09/01/24 21:56 Sputum Gram Stain - Preliminary
[2024-09-04 15:00] VITALS: BP 146/69
--- NOTE | 2024-09-04 15:13 | W.PN.ID1 ---
Date of Service
Date of Service: September 04, 2024
Today's Communication
Continue antibiotics.
Assessment / Plan
Increasing cough
Possible flare of bronchiectasis (VS new pneumonia)
Bronchiectasis
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
Hypogammaglobulinemia (weekly IVIG)
Hx of aspergillus via bronchoscopy,
Hx Pseudomonas via bronchoscopy
Recurrent pneumonia
Osteoarthritis
Hypertension
Asthma
Recommendations:
Continue with empiric cefepime for today. Gram-negative rods noted on sputum culture. Patient with reported prior history of MDR Pseudomonas, although most recent isolate susceptible to cefepime.
Await respiratory culture.
Follow white count and temperature curve.
����������������������������������������������������������
Chief Complaint
-: Other (Bronchiectasis)
Subjective / Review of Systems
Patient seen and examined. Underwent bronchoscopy yesterday. She denies fevers, but notes that she intermittently 'feels warm'. No fevers recorded in chart.
Review of Systems: No Fever, Cough and Sputum Production
Vital Signs / Physical Exam
Vital Signs
Vital Signs
Temp Pulse Resp BP Pulse Ox
97.5 F 71 14 135/58 96
09/04/24 07:15 09/04/24 08:00 09/04/24 08:00 09/04/24 07:15 09/04/24 08:00
Physical Exam
Constitutional: No Acute Distress, Comfortable and Non-toxic
Eyes: Sclera Anicteric
Cardiovascular: S1/S2; Negative S3/S4
Pulmonary: Rhonchi (Scattered and throughout) and Non Labored
Gastrointestinal: Soft, Non Tender and Non Distended
Neurological: Awake and Alert
Psychological: Calm
Objective Data
Lab Data
Lab Results
09/04/24 09:56
09/04/24 09:56
Estimated Creat Clear 64 ml/min 09/04/24 09:56
Total Bilirubin 0.5 mg/dl (0.2-1.3) 09/01/24 22:13
AST 26 U/L (14-36) 09/01/24 22:13
ALT 25 U/L (0-35) 09/01/24 22:13
Alkaline Phosphatase 111 U/L (38-126) 09/01/24 22:13
Most recent labs reviewed.
Micro Results:
09/03/24 16:27 Respiratory Culture - Preliminary
Bronch [place] Gram negative bacilli
Gram Stain - Preliminary
09/03/24 16:27 Respiratory Culture - Preliminary
Res Misc Gram negative bacilli
Gram Stain - Preliminary
09/01/24 21:56 Respiratory Culture - Preliminary
Sputum Gram negative bacilli
Gram Stain - Preliminary
09/03/24 16:27 Acid Fast Bacilli Smear - Pending
Bronch [place] Acid Fast Bacilli Culture - Pending
09/03/24 16:27 Fungal Culture - Pending
Res Misc
09/03/24 16:27 Acid Fast Bacilli Smear - Pending
Res Misc Acid Fast Bacilli Culture - Pending
09/03/24 16:27 Fungal Culture - Pending
Bronch [place]
Imaging:
09/02/2024 CT chest: Severe chronic verrucoid and cystic bronchiectasis in the right middle lobe and inferior segment of the lingula which is unchanged. There are multiple regions of peripheral tree-in-bud endobronchial opacity in both lungs
consistent with peripheral endobronchial infection. Multiple new groundglass and solid nodular airspace opacities distributed throughout the lungs which are similar in appearance to other stable opacities.
[2024-09-04] MEDS: MUCOMYST 10% 2 ML INH ×2 (15:31→19:17)
[2024-09-04] MEDS: ANESTHETIC LOZENGE 1 LOZENGE PO ×2 (16:01→20:36)
[2024-09-04] MEDS: LOVENOX 40 MG SC (17:55)
[2024-09-04] MEDS: TYLENOL 650 MG PO (20:35)
[2024-09-04] MEDS: XANAX 0.125 MG PO (21:39)
[2024-09-04] MEDS: MAGNESIUM OXIDE 250 MG PO (21:39)
[2024-09-04 23:04] VITALS: BP 120/56
[2024-09-05] MEDS: MAXIPIME 2000 MG IV ×2 (02:45→10:32)
[2024-09-05] MEDS: ANESTHETIC LOZENGE 1 LOZENGE PO ×5 (03:00→20:28)
[2024-09-05] MEDS: STERILE WATER FOR INJECTION 10 ML IV ×2 (04:39→10:32)
--- NOTE | 2024-09-05 05:13 | DOWNTIME ---
Addendum entered by Laina eNwby RN 09/05/24 14:15:
Downtime was 09/05/2024 from 0100 to 09/05/2024 at 0415
Original Note:
There was a [employer] Video Editor Downtime on 09/04/2024 from 0100 to 09/05/2024 at 0415. Downtime documentation of patient's care, including medication administrations, has been reconciled in the electronic record per guidelines. Refer to the
patient's paper chart under the miscellaneous tab to see printed paper medication records and downtime forms.
[2024-09-05] MEDS: NON-FORMULARY ITEM 1 DROP RIGHT EYE ×4 (06:27→21:39)
[2024-09-05] MEDS: PRED FORTE 1% EYE DROPS 1 DROP OPHTH ×5 (06:28→21:39)
[2024-09-05 07:20] VITALS: BP 133/53
[2024-09-05] MEDS: VENTOLIN NEBULES 2.5 MG INH (08:05)
[2024-09-05] MEDS: MUCOMYST 10% 2 ML INH ×3 (08:06→19:34)
[2024-09-05] MEDS: NON-FORMULARY ITEM 1 MG INH (08:21)
[2024-09-05] MEDS: MIRALAX 25.5 GRAMS PO (09:03)
[2024-09-05] MEDS: REFRESH EYE DROPS (PF) 1 DROPS LEFT EYE ×4 (09:03→21:38)
[2024-09-05] MEDS: GLYCERIN SUPPOSITORY ADULT 1 SUPP RECTAL (09:10)
[2024-09-05] MEDS: TYLENOL 650 MG PO ×2 (09:10→13:30)
[2024-09-05] MEDS: COLACE 100 MG PO (09:11)
[2024-09-05] MEDS: PROTONIX 40 MG PO (09:11)
[2024-09-05] MEDS: COZAAR 100 MG PO (09:11)
[2024-09-05] MEDS: MUCINEX 600 MG PO ×2 (09:11→20:23)
--- NOTE | 2024-09-05 10:07 | W.PN.HOSP.TC ---
Today's Communication/Plan
-
See bold
Assessment / Plan
Assessment / Plan
83-year-old woman with past medical history significant for Pseudomonas pneumonia previously treated with a 14-day course of IV vancomycin and IV cefepime(last dose was administered at 6 AM 2 days prior), recent corneal transplant, bronchiectasis,
asthma, COPD, hypertension, who presented to the emergency department secondary to worsening cough productive of sputum with temperature elevated at 99.4 �F to 99.6 �F at home, associated with increased crackles and wheezes per the patient.
# Bronchopneumonia, concern is for bacterial pneumonia, possible persistent Pseudomonas PNA
*CT of the chest on 09/01 - preliminary report shows a new patchy area of consolidation and groundglass in the posterior right upper lobe that could reflect a bronchopneumonia.
Background of chronic endobronchial infection including extensive central lobar nodularity tree-in-bud opacities in the right middle lobe lingular bronchiectasis. Consider MAC infection.
Appreciate ID and pulmonology input, status post bronchoscopy with BAL 09/03
Cultures growing Pseudomonas
ID and pulmonology recommends transitioning to Cipro for an additional 2 weeks
Follow-up remaining cultures. She may need to follow-up at a tertiary care center given the extensiveness of her disease
Continue Mucinex, hypertonic saline nebs, albuterol nebs
#Recent corneal transplant
Outpatient follow-up appointment scheduled for Tuesday
Continue steroid eyedrops, moxifloxacin eyedrops per outpatient regimen
#Essential Hypertension
Continue hydrochlorothiazide and losartan
#Hyperlipidemia
Continue statin
#Chronic back pain
Tylenol as needed
#Anxiety
Continue home Xanax at bedtime
DVT prophylaxis�subcu Lovenox
Full Code
Total time spent to see the patient on the floor, examine the patient, review data and lab results, discuss treatment plan with patient, nursing staff around 39 minutes.
Physical Exam
General: No acute distress
HEENT: Normocephalic, Atraumatic, EOMI, MMM
Respiratory: Bilateral rhonchi
Cardiac: Normal S1/S2, Regular Rate and Rhythm
GI: Soft, Nontender, Nondistended, Normal Bowel Sounds
Extremities: No Clubbing, Cyanosis, or Edema
Neuro: Nonfocal/Grossly Intact
Psych: Calm, Cooperative
Anticipated Discharge: Within 24 hours
Subjective/Interval History
-
Date of Service: September 05, 2024
Patient is frustrated, she does not feel that the IV cefepime is working for her. She continues to cough, and brings up mucus. Denies shortness of breath. No chest pain. No fever, no vomiting.
Objective Data
-
Vital Signs:
Vital Signs
Temp Pulse Resp BP Pulse Ox
98.3 F 77 16 133/53 95
09/05/24 07:20 09/05/24 08:07 09/05/24 08:07 09/05/24 07:20 09/05/24 08:07
I&O
09/04/24 09/05/24 09/06/24
06:59 06:59 06:59
Intake Total 900 / 900 640 / 640
Balance 900 / 900 640 / 640
[2024-09-05] MEDS: CRESTOR 5 MG PO (10:33)
[2024-09-05] MEDS: ORETIC 25 MG PO (10:33)
--- NOTE | 2024-09-05 11:11 | CM ---
security and compliance project manager reviewed patient's chart and plan is to home when stable.
Plan; Home when stable.
[2024-09-05] MEDS: PULMICORT INH (11:41)
--- NOTE | 2024-09-05 12:00 | W.PN.PUL3 ---
Today's Communication / Plan
-
- Discontinue IV cefepime
- Start ciprofloxacin 500 mg p.o. twice daily
- Discontinue albuterol and start DuoNeb 3 times daily scheduled
-AFB and fungal cultures pending
- Anticipate discharge 09/06
Assessment
-
Assessment: 83-year-old female with a past medical history of bronchiectasis, asthma, immunoglobulin deficiency, cystic fibrosis carrier, hypertension, history of pneumonia and history of Pseudomonas + Aspergillus who presents with fever +
productive cough for few days. 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 In the ER here she has been afebrile. She has been on room air saturating 95% or above. Initial labs show normal WBC at 10.3, and Hb 11.1. Respiratory culture
collected, and imaging shows multiple new peripheral groundglass and solid opacities with areas of increased tree-in-bud nodular opacities suspicious for an acute infection versus inflammatory pneumonitis. She has severe chronic bronchiectasis in
the right middle lobe + lingula. She was given cefepime and admitted to the hospitalist service. Pulmonary service now consulted for additional management/recommendations.
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
#1. Acute exacerbation of chronic bronchiectasis along with multifocal pneumonia
-Known history of CF carrier status
-Known colonization with Pseudomonas and Aspergillus and has been treated with intermittent tobramycin, Levaquin/azithromycin, follows up with infectious disease service at [facility]. Patient recently completed 2 weeks of IV cefepime on 08/30.
-S/p bronchoscopy and BAL on 09/03, follow-up on bacterial, fungal and AFB stains and cultures. Sputum culture showing Pseudomonas, pansensitive except to tobramycin.
-Continue airway clearance, with Mucomyst twice daily. Acapella device. Patient has not tolerated vest therapy in the past due to back pain. Patient uses IPV/intrapulmonary percussive ventilation at home to help with mucus clearance.
-Switch to ciprofloxacin 500 mg p.o. twice daily will aim to treat for 2 weeks following which we will consider azithromycin 3 times a day in view of recurrent exacerbations.
#2. History of hypogammaglobulinemia
-Follows up with immunology services outpatient, currently on IVIG replacement, started in July 2024
#3. History of asthma.
- Lately has been on subcutaneous Tezspire, last dosage about a month ago
- Feels more bronchospastic since been off ipratropium, resume DuoNeb scheduled 3 times daily.
DVT prophylaxis with Lovenox 40.
Discussed with infectious disease service also
Total time spent on this consultation/encounter _48___ minutes which includes review of history, physical exam, medications, laboratory data, personal review of imaging, extensive review of outpatient records, discussion with care team and
respiratory therapy.
Data:
CT Chest without contrast 09/02/2024:
1. Multiple new small peripheral ground-glass and solid opacities diffusely distributed throughout the lungs most suggestive ACUTE PERIPHERAL ENDOBRONCHIAL INFECTION and MILD MULTIFOCAL PNEUMONIA. An acute inflammatory pneumonitis or pulmonary
hemorrhage are considered less likely.
2. Extensive chronic peripheral endobronchial infection throughout both lungs with many regions of peripheral 'tree-in-bud' endobronchial opacity. Atypical mycobacterial infection is a strong diagnostic possibility.
3. SEVERE CHRONIC BRONCHIECTASIS in the RIGHT MIDDLE LOBE and LINGULA.
4. Severe calcific atherosclerotic plaque in the coronary arteries.
5. Small pericardial effusion.
Subjective Data
-
Date of Service:
Date of Service: September 05, 2024
Subjective:
Patient comfortably sitting in bed, on room air
Review of Systems
Genitourinary: Other (All 14 systems reviewed and negative except as stated above in the history of present illness.)
Objective Data
Data Reviewed
Vital Signs / I&O / Oxygen:
Vital Signs
Temp Pulse Resp BP Pulse Ox
98.3 F 77 16 133/53 95
09/05/24 07:20 09/05/24 08:07 09/05/24 08:07 09/05/24 07:20 09/05/24 08:07
Intake and Output
09/04/24 09/05/24 09/06/24
06:59 06:59 06:59
Intake Total 900 / 900 640 / 640
Balance 900 / 900 640 / 640
SaO2 95
Nasal Cannula flow liters per 2
minute
Physical Exam
General: Comfortable
HEENT: Normocephalic
Cardiovascular: S1-S2 and Irregular Rhythm
Respiratory: Rhonchi (Bilateral rhonchi on exam)
GI: Soft and Non Distended
Neurology: Awake and Alert
Skin: Warm
Labs/Micro/Reports
Lab Data
09/04/24 09:56
09/04/24 09:56
Microbiology
09/03/24 16:27 Res Misc Respiratory Culture - Final
Pseudomonas aeruginosa
09/03/24 16:27 Res Misc Gram Stain - Final
09/03/24 16:27 Bronch [place] Respiratory Culture - Final
Pseudomonas aeruginosa
09/03/24 16:27 Bronch [place] Gram Stain - Final
09/01/24 21:56 Sputum Respiratory Culture - Final
Pseudomonas aeruginosa
09/01/24 21:56 Sputum Gram Stain - Final
--- NOTE | 2024-09-05 12:19 | W.PN.ID1 ---
Date of Service
Date of Service: September 05, 2024
Today's Communication
Transition to ciprofloxacin.
Assessment / Plan
Increasing cough
Possible flare of bronchiectasis (VS new pneumonia)
Advanced Bronchiectasis
Positive CF carrier
Hypogammaglobulinemia (weekly IVIG)
Hx of aspergillus (via bronchoscopy)
Hx Pseudomonas (via bronchoscopy)
Recurrent pneumonia
Osteoarthritis
Hypertension
Asthma
Recommendations:
Bronchoscopy and sputum cultures show ongoing presence of Pseudomonas, although it remains susceptible to cefepime and fluoroquinolones. (Resistant to tobramycin)
Case discussed with Pulmonary. Agree with transition to Cipro for an additional 2 weeks.
Patient counseled that, given underlying structural lung disease, she will likely always grow out Pseudomonas, but that does not mean there is an acute infection.
Will follow other pending cultures (fungal, acid-fast)
Given extensiveness of disease, she may need to continue to follow at a tertiary care center.
����������������������������������������������������������
Chief Complaint
-: Other (Bronchiectasis)
Subjective / Review of Systems
Patient seen and examined. Reports she continues to not be back to her baseline.
Review of Systems: No Fever, No Chills, Cough, Sputum Production and No Chest Pain
Vital Signs / Physical Exam
Vital Signs
Vital Signs
Temp Pulse Resp BP Pulse Ox
98.3 F 77 16 133/53 95
09/05/24 07:20 09/05/24 08:07 09/05/24 08:07 09/05/24 07:20 09/05/24 08:07
Physical Exam
Constitutional: No Acute Distress, Comfortable and Non-toxic
Eyes: Sclera Anicteric
Cardiovascular: S1/S2; Negative S3/S4
Pulmonary: Rhonchi (Scattered and throughout) and Non Labored
Gastrointestinal: Soft, Non Tender and Non Distended
Neurological: Awake and Alert
Psychological: Calm
Objective Data
Lab Data
Lab Results
09/04/24 09:56
09/04/24 09:56
Estimated Creat Clear 64 ml/min 09/04/24 09:56
Total Bilirubin 0.5 mg/dl (0.2-1.3) 09/01/24 22:13
AST 26 U/L (14-36) 09/01/24 22:13
ALT 25 U/L (0-35) 09/01/24 22:13
Alkaline Phosphatase 111 U/L (38-126) 09/01/24 22:13
Most recent labs reviewed.
Micro Results:
09/03/24 16:27 Respiratory Culture - Final
Res Misc Pseudomonas aeruginosa
Gram Stain - Final
09/03/24 16:27 Respiratory Culture - Final
Bronch [place] Pseudomonas aeruginosa
Gram Stain - Final
09/01/24 21:56 Respiratory Culture - Final
Sputum Pseudomonas aeruginosa
Gram Stain - Final
09/03/24 16:27 Acid Fast Bacilli Smear - Pending
Bronch [place] Acid Fast Bacilli Culture - Pending
09/03/24 16:27 Fungal Culture - Pending
Res Misc
09/03/24 16:27 Acid Fast Bacilli Smear - Pending
Res Misc Acid Fast Bacilli Culture - Pending
09/03/24 16:27 Fungal Culture - Pending
Bronch [place]
Imaging:
09/02/2024 CT chest: Severe chronic verrucoid and cystic bronchiectasis in the right middle lobe and inferior segment of the lingula which is unchanged. There are multiple regions of peripheral tree-in-bud endobronchial opacity in both lungs
consistent with peripheral endobronchial infection. Multiple new groundglass and solid nodular airspace opacities distributed throughout the lungs which are similar in appearance to other stable opacities.
Care Review
Plan reviewed with: Physician (Pulmonary)
[2024-09-05] MEDS: PRED FORTE 1% EYE DROPS OPHTH (13:18)
[2024-09-05] MEDS: CIPRO 500 MG PO ×2 (13:19→21:38)
[2024-09-05] MEDS: DUONEB 3 ML INH ×2 (15:09→19:33)
[2024-09-05 15:28] VITALS: BP 137/60
[2024-09-05] MEDS: STERILE WATER FOR INJECTION IV (17:28)
[2024-09-05] MEDS: LOVENOX 40 MG SC (17:55)
[2024-09-05] MEDS: PULMICORT 0.5 MG INH (19:33)
[2024-09-05] MEDS: COLACE PO (20:28)
[2024-09-05] MEDS: XANAX 0.125 MG PO (21:37)
[2024-09-05] MEDS: MAGNESIUM OXIDE PO (21:38)
[2024-09-05 23:21] VITALS: BP 138/59
[2024-09-06] MEDS: STERILE WATER FOR INJECTION IV (03:05)
[2024-09-06] MEDS: NON-FORMULARY ITEM 1 MG INH (07:36)
[2024-09-06] MEDS: DUONEB 3 ML INH ×3 (07:37→19:16)
[2024-09-06] MEDS: PULMICORT 0.5 MG INH ×2 (07:37→19:16)
[2024-09-06] MEDS: MUCOMYST 10% 2 ML INH ×3 (07:38→19:16)
[2024-09-06 07:45] VITALS: BP 149/64
[2024-09-06] MEDS: COLACE PO ×2 (08:19→20:14)
[2024-09-06] MEDS: MIRALAX 25.5 GRAMS PO (08:19)
[2024-09-06] MEDS: CIPRO 500 MG PO ×2 (08:19→20:15)
[2024-09-06] MEDS: COZAAR 100 MG PO (08:19)
[2024-09-06] MEDS: ORETIC 25 MG PO (08:20)
[2024-09-06] MEDS: NON-FORMULARY ITEM 1 DROP RIGHT EYE ×4 (08:20→21:48)
[2024-09-06] MEDS: MUCINEX 600 MG PO ×2 (08:20→21:47)
[2024-09-06] MEDS: PRED FORTE 1% EYE DROPS 1 DROP OPHTH ×4 (08:21→21:48)
[2024-09-06] MEDS: PROTONIX 40 MG PO (08:21)
[2024-09-06] MEDS: REFRESH EYE DROPS (PF) 1 DROPS LEFT EYE ×3 (08:21→21:47)
--- NOTE | 2024-09-06 08:36 | W.PN.HOSP.TC ---
Today's Communication/Plan
-
Hopeful for discharge tomorrow
Assessment / Plan
Assessment / Plan
83-year-old woman with past medical history significant for Pseudomonas pneumonia previously treated with a 14-day course of IV vancomycin and IV cefepime(last dose was administered at 6 AM 2 days prior), recent corneal transplant, bronchiectasis,
asthma, COPD, hypertension, who presented to the emergency department secondary to worsening cough productive of sputum with temperature elevated at 99.4 �F to 99.6 �F at home, associated with increased crackles and wheezes per the patient.
# Bronchopneumonia, concern is for bacterial pneumonia, possible persistent Pseudomonas PNA
*CT of the chest on 09/01 - preliminary report shows a new patchy area of consolidation and groundglass in the posterior right upper lobe that could reflect a bronchopneumonia.
Background of chronic endobronchial infection including extensive central lobar nodularity tree-in-bud opacities in the right middle lobe lingular bronchiectasis. Consider MAC infection.
Appreciate ID and pulmonology input, status post bronchoscopy with BAL 09/03
Cultures growing Pseudomonas
ID and pulmonology recommends transitioning to Cipro for an additional 2 weeks
Follow-up remaining cultures. She may need to follow-up at a tertiary care center given the extensiveness of her disease
Pulmonology started prednisone 40 mg daily for 5 days
Continue Mucinex, hypertonic saline nebs, albuterol nebs
#Recent corneal transplant
Outpatient follow-up appointment scheduled for Tuesday
Continue steroid eyedrops, moxifloxacin eyedrops per outpatient regimen
#Essential Hypertension
Continue hydrochlorothiazide and losartan
#Hyperlipidemia
Continue statin
#Chronic back pain
Tylenol as needed
#Anxiety
Continue home Xanax at bedtime
DVT prophylaxis�subcu Lovenox
Full Code
Total time spent to see the patient on the floor, examine the patient, review data and lab results, discuss treatment plan with patient, nursing staff around 38 minutes.
Physical Exam
General: No acute distress
HEENT: Normocephalic, Atraumatic, EOMI, MMM
Respiratory: Bilateral rhonchi
Cardiac: Normal S1/S2, Regular Rate and Rhythm
GI: Soft, Nontender, Nondistended, Normal Bowel Sounds
Extremities: No Clubbing, Cyanosis, or Edema
Neuro: Nonfocal/Grossly Intact
Psych: Calm, Cooperative
Anticipated Discharge: Within 24 hours
Subjective/Interval History
-
Date of Service: September 06, 2024
Patient continues to cough, with a lot of mucus production. She does not feel well for discharge today. Denies chest pain, denies shortness of breath. No fever, no vomiting.
Objective Data
-
Vital Signs:
Vital Signs
Temp Pulse Resp BP Pulse Ox
98.3 F 75 18 138/59 95
09/05/24 23:21 09/06/24 07:40 09/06/24 07:40 09/05/24 23:21 09/06/24 07:40
I&O
09/05/24 09/06/24 09/07/24
06:59 06:59 06:59
Intake Total 640 / 640 960 / 960
Balance 640 / 640 960 / 960
--- NOTE | 2024-09-06 10:54 | CM ---
Met with patient at bedside; Home Health services for VN and PT offered; patient agreeable; agency options identified; referral sent and acknowledged by VN liaison
[facility] IMM benefit explained; form signed @ 1045; copy of form provided
Plan: discharge to home with home health services when medically stable
[2024-09-06] MEDS: DELTASONE 40 MG PO (12:01)
[2024-09-06] MEDS: TYLENOL 650 MG PO (12:03)
[2024-09-06] MEDS: REFRESH EYE DROPS (PF) LEFT EYE (12:03)
--- NOTE | 2024-09-06 12:10 | VNURNOTE ---
Home Health Liaison met with patient at bedside to discuss [facility] nurse/therapy, visits, schedule and homebound status. Patient is agreeable and understands that visits at home will be 2-3 x per week to assess and teach medical management. Patient
confirms that she has a neb machine at home. Patient is aware that [facility] will contact them for start of care in 1-2 days after discharge from .
[facility] referral completed in [facility].
--- NOTE | 2024-09-06 13:29 | W.PN.PUL3 ---
Today's Communication / Plan
-
- Start prednisone 40 mg daily, continue ciprofloxacin
- Patient stable for discharge from pulmonary standpoint, anticipate discharge to 09/07
Assessment
-
Assessment: 83-year-old female with a past medical history of bronchiectasis, asthma, immunoglobulin deficiency, cystic fibrosis carrier, hypertension, history of pneumonia and history of Pseudomonas + Aspergillus who presents with fever +
productive cough for few days. 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 In the ER here she has been afebrile. She has been on room air saturating 95% or above. Initial labs show normal WBC at 10.3, and Hb 11.1. Respiratory culture
collected, and imaging shows multiple new peripheral groundglass and solid opacities with areas of increased tree-in-bud nodular opacities suspicious for an acute infection versus inflammatory pneumonitis. She has severe chronic bronchiectasis in
the right middle lobe + lingula. She was given cefepime and admitted to the hospitalist service. Pulmonary service now consulted for additional management/recommendations.
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
#1. Acute exacerbation of chronic bronchiectasis along with multifocal pneumonia
-Known history of CF carrier status
-Known colonization with Pseudomonas and Aspergillus and has been treated with intermittent tobramycin, Levaquin/azithromycin, follows up with infectious disease service at [facility]. Patient recently completed 2 weeks of IV cefepime on 08/30.
-S/p bronchoscopy and BAL on 09/03, follow-up on bacterial, fungal and AFB stains and cultures. Sputum culture showing Pseudomonas, pansensitive except to tobramycin.
-Continue airway clearance, with Mucomyst twice daily. Acapella device. Patient has not tolerated vest therapy in the past due to back pain. Patient uses IPV/intrapulmonary percussive ventilation at home to help with mucus clearance.
-Switched to ciprofloxacin 500 mg p.o. twice daily will aim to treat for 2 weeks following which we will consider azithromycin 3 times a day in view of recurrent exacerbations. Patient continues to be afebrile, has normal white count and does not
have much cough. Continues to feel chest tightness however.
- Discharge planning,
#2. History of hypogammaglobulinemia
-Follows up with immunology services outpatient, currently on IVIG replacement, started in July 2024
#3. History of asthma.
- Lately has been on subcutaneous Tezspire, last dosage about a month ago
- Feels better since ipratropium was resumed, continue DuoNeb as ordered. Patient discussed with her endoscopy specialty technician and was cleared for oral prednisone use, start prednisone 40 mg daily
DVT prophylaxis with Lovenox 40.
Discussed with infectious disease service also
Total time spent on this consultation/encounter _42___ minutes which includes review of history, physical exam, medications, laboratory data, personal review of imaging, extensive review of outpatient records, discussion with care team and
respiratory therapy.
Data:
CT Chest without contrast 09/02/2024:
1. Multiple new small peripheral ground-glass and solid opacities diffusely distributed throughout the lungs most suggestive ACUTE PERIPHERAL ENDOBRONCHIAL INFECTION and MILD MULTIFOCAL PNEUMONIA. An acute inflammatory pneumonitis or pulmonary
hemorrhage are considered less likely.
2. Extensive chronic peripheral endobronchial infection throughout both lungs with many regions of peripheral 'tree-in-bud' endobronchial opacity. Atypical mycobacterial infection is a strong diagnostic possibility.
3. SEVERE CHRONIC BRONCHIECTASIS in the RIGHT MIDDLE LOBE and LINGULA.
4. Severe calcific atherosclerotic plaque in the coronary arteries.
5. Small pericardial effusion.
Subjective Data
-
Date of Service:
Date of Service: September 06, 2024
Subjective:
Patient comfortably sitting in bed, on room air. Reports feeling about the same.
Review of Systems
Genitourinary: Other (All 14 systems reviewed and negative except as stated above in the history of present illness.)
Objective Data
Data Reviewed
Vital Signs / I&O / Oxygen:
Vital Signs
Temp Pulse Resp BP Pulse Ox
97.9 F 75 18 149/64 99
09/06/24 07:45 09/06/24 07:45 09/06/24 07:45 09/06/24 07:45 09/06/24 08:15
Intake and Output
09/05/24 09/06/24 09/07/24
06:59 06:59 06:59
Intake Total 640 / 640 960 / 960
Balance 640 / 640 960 / 960
SaO2 99
Nasal Cannula flow liters per 2
minute
Physical Exam
General: Comfortable
HEENT: Normocephalic
Cardiovascular: S1-S2
Respiratory: Rhonchi (Bilateral rhonchi on exam, )
GI: Soft and Non Distended
Neurology: Awake and Alert
Skin: Warm
Labs/Micro/Reports
Lab Data
09/04/24 09:56
09/04/24 09:56
Microbiology
09/03/24 16:27 Bronch [place] Acid Fast Bacilli Smear - Preliminary
09/03/24 16:27 Bronch [place] Acid Fast Bacilli Culture - Preliminary
09/03/24 16:27 Res Misc Acid Fast Bacilli Smear - Preliminary
09/03/24 16:27 Res Misc Acid Fast Bacilli Culture - Preliminary
09/03/24 16:27 Res Misc Respiratory Culture - Final
Pseudomonas aeruginosa
09/03/24 16:27 Res Misc Gram Stain - Final
09/03/24 16:27 Bronch [place] Respiratory Culture - Final
Pseudomonas aeruginosa
09/03/24 16:27 Bronch [place] Gram Stain - Final
09/01/24 21:56 Sputum Respiratory Culture - Final
Pseudomonas aeruginosa
09/01/24 21:56 Sputum Gram Stain - Final
[2024-09-06 15:35] VITALS: BP 134/66
--- NOTE | 2024-09-06 16:02 | W.PN.ID1 ---
Date of Service
Date of Service: September 06, 2024
Today's Communication
Continue current antibiotics.
Assessment / Plan
Increasing cough
Possible flare of bronchiectasis (VS new pneumonia)
Advanced Bronchiectasis
Positive CF carrier
Hypogammaglobulinemia (weekly IVIG)
Hx of aspergillus (via bronchoscopy)
Hx Pseudomonas (via bronchoscopy)
Recurrent pneumonia
Osteoarthritis
Hypertension
Asthma
Recommendations:
Bronchoscopy and sputum cultures show ongoing presence of Pseudomonas, although it remains susceptible to cefepime and fluoroquinolones. (Resistant to tobramycin)
Case discussed with Pulmonary. Agree with Cipro for an additional 2 weeks.
Steroids initiated.
Patient counseled that, given underlying structural lung disease, she will likely always grow out Pseudomonas, but that does not mean there is an acute infection.
Will follow other pending cultures (fungal, acid-fast)
Given extensiveness of disease, I agree that she should continue to be followed at a tertiary care center.
����������������������������������������������������������
Chief Complaint
-: Other (Bronchiectasis)
Subjective / Review of Systems
Patient seen and examined. Reports occasional 'sweats' and 'feeling feverish', but no actual fevers recorded. Still with cough.
Review of Systems: No Fever and No Chills
Vital Signs / Physical Exam
Vital Signs
Vital Signs
Temp Pulse Resp BP Pulse Ox
98.1 F 79 16 134/66 93
09/06/24 15:35 09/06/24 15:35 09/06/24 15:35 09/06/24 15:35 09/06/24 15:35
Physical Exam
Constitutional: No Acute Distress, Comfortable and Non-toxic
Eyes: Sclera Anicteric
Cardiovascular: S1/S2; Negative S3/S4
Pulmonary: Rhonchi (Scattered and throughout) and Non Labored
Gastrointestinal: Soft, Non Tender and Non Distended
Neurological: Awake and Alert
Psychological: Calm
Objective Data
Lab Data
Lab Results
09/04/24 09:56
09/04/24 09:56
Estimated Creat Clear 64 ml/min 09/04/24 09:56
Total Bilirubin 0.5 mg/dl (0.2-1.3) 09/01/24 22:13
AST 26 U/L (14-36) 09/01/24 22:13
ALT 25 U/L (0-35) 09/01/24 22:13
Alkaline Phosphatase 111 U/L (38-126) 09/01/24 22:13
Most recent labs reviewed.
Micro Results:
09/03/24 16:27 Acid Fast Bacilli Smear - Preliminary
Bronch [place] Acid Fast Bacilli Culture - Preliminary
09/03/24 16:27 Acid Fast Bacilli Smear - Preliminary
Res Misc Acid Fast Bacilli Culture - Preliminary
09/03/24 16:27 Respiratory Culture - Final
Res Misc Pseudomonas aeruginosa
Gram Stain - Final
09/03/24 16:27 Respiratory Culture - Final
Bronch [place] Pseudomonas aeruginosa
Gram Stain - Final
09/01/24 21:56 Respiratory Culture - Final
Sputum Pseudomonas aeruginosa
Gram Stain - Final
09/03/24 16:27 Fungal Culture - Pending
Res Misc
09/03/24 16:27 Fungal Culture - Pending
Bronch [place]
Imaging:
09/02/2024 CT chest: Severe chronic verrucoid and cystic bronchiectasis in the right middle lobe and inferior segment of the lingula which is unchanged. There are multiple regions of peripheral tree-in-bud endobronchial opacity in both lungs
consistent with peripheral endobronchial infection. Multiple new groundglass and solid nodular airspace opacities distributed throughout the lungs which are similar in appearance to other stable opacities.
Care Review
Plan reviewed with: Physician (Pulmonary)
[2024-09-06] MEDS: LOVENOX SC (17:12)
[2024-09-06] MEDS: MUCINEX PO (20:15)
[2024-09-06] MEDS: MAGNESIUM OXIDE PO (21:46)
[2024-09-06] MEDS: XANAX 0.125 MG PO (21:47)
[2024-09-06 23:40] VITALS: BP 127/60
[2024-09-07 07:05] VITALS: BP 137/71
[2024-09-07] MEDS: NON-FORMULARY ITEM 1 MG INH (07:40)
[2024-09-07] MEDS: DUONEB 3 ML INH ×2 (07:41→14:13)
[2024-09-07] MEDS: PULMICORT 0.5 MG INH (07:41)
[2024-09-07] MEDS: MUCOMYST 10% 2 ML INH ×2 (07:41→14:14)
[2024-09-07] MEDS: MIRALAX 25.5 GRAMS PO (08:24)
[2024-09-07] MEDS: DELTASONE 40 MG PO (08:25)
[2024-09-07] MEDS: ORETIC 25 MG PO (08:25)
[2024-09-07] MEDS: CIPRO 500 MG PO (08:25)
[2024-09-07] MEDS: COZAAR 100 MG PO (08:25)
[2024-09-07] MEDS: MUCINEX 600 MG PO (08:25)
[2024-09-07] MEDS: PROTONIX 40 MG PO (08:25)
[2024-09-07] MEDS: CRESTOR 5 MG PO (08:25)
[2024-09-07] MEDS: COLACE 100 MG PO (08:25)
[2024-09-07] MEDS: REFRESH EYE DROPS (PF) 1 DROPS LEFT EYE ×2 (08:27→13:10)
[2024-09-07] MEDS: LOVENOX SC (08:28)
[2024-09-07] MEDS: PRED FORTE 1% EYE DROPS 1 DROP OPHTH ×2 (08:30→13:09)
[2024-09-07] MEDS: NON-FORMULARY ITEM 1 DROP RIGHT EYE ×2 (08:30→13:09)
[2024-09-07] MEDS: TYLENOL 650 MG PO (08:39)
--- NOTE | 2024-09-07 09:19 | W.PN.HOSP.TC ---
Today's Communication/Plan
-
Discharge today
Assessment / Plan
Assessment / Plan
83-year-old woman with past medical history significant for Pseudomonas pneumonia previously treated with a 14-day course of IV vancomycin and IV cefepime(last dose was administered at 6 AM 2 days prior), recent corneal transplant, bronchiectasis,
asthma, COPD, hypertension, who presented to the emergency department secondary to worsening cough productive of sputum with temperature elevated at 99.4 �F to 99.6 �F at home, associated with increased crackles and wheezes per the patient.
# Bronchopneumonia, concern is for bacterial pneumonia, possible persistent Pseudomonas PNA
*CT of the chest on 09/01 - preliminary report shows a new patchy area of consolidation and groundglass in the posterior right upper lobe that could reflect a bronchopneumonia.
Background of chronic endobronchial infection including extensive central lobar nodularity tree-in-bud opacities in the right middle lobe lingular bronchiectasis. Consider MAC infection.
Appreciate ID and pulmonology input, status post bronchoscopy with BAL 09/03
Cultures growing Pseudomonas
ID and pulmonology recommends Cipro 500 mg twice a day to complete a 2-week course
After completion of Cipro, she may take azithromycin 250 mg Tuesday/Tuesday/Tuesday
Pulmonology also recommends discharge on prednisone taper, DuoNebs 3 times daily as needed, Mucomyst nebs twice daily
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
#Recent corneal transplant
Outpatient follow-up appointment scheduled for Tuesday
Continue steroid eyedrops, moxifloxacin eyedrops per outpatient regimen
#Essential Hypertension
Continue hydrochlorothiazide and losartan
#Hyperlipidemia
Continue statin
#Chronic back pain
Tylenol as needed
#Anxiety
Continue home Xanax at bedtime
DVT prophylaxis�subcu Lovenox
Full Code
Physical Exam
General: No acute distress
HEENT: Normocephalic, Atraumatic, EOMI, MMM
Respiratory: Bilateral rhonchi
Cardiac: Normal S1/S2, Regular Rate and Rhythm
GI: Soft, Nontender, Nondistended, Normal Bowel Sounds
Extremities: No Clubbing, Cyanosis, or Edema
Neuro: Nonfocal/Grossly Intact
Psych: Calm, Cooperative
Anticipated Discharge: Today
Subjective/Interval History
-
Date of Service: September 07, 2024
Patient reports her coughing and mucus production are improved today. She feels better. No chest pain. No fever, no vomiting.
Objective Data
-
Vital Signs:
Vital Signs
Temp Pulse Resp BP Pulse Ox
98.6 F 86 18 137/71 95
09/07/24 07:05 09/07/24 07:49 09/07/24 07:49 09/07/24 07:05 09/07/24 07:49
I&O
09/06/24 09/07/24 09/08/24
06:59 06:59 06:59
Intake Total 960 / 960 300 / 300
Balance 960 / 960 300 / 300
--- NOTE | 2024-09-07 11:15 | CM ---
Patient is for possible discharge to home today, IMM completed and placed on chart. plan is to home with [facility].
Plan; Home with [facility]
--- NOTE | 2024-09-07 11:55 | W.DCSUMMARY ---
Discharge Summary
Discharge Data
Date of Admission: 09/03/24
Date of Discharge: 09/07/24
-
Pending Results: No
Hospital Course
Discharge diagnosis:
Acute exacerbation of chronic bronchiectasis
Multifocal pneumonia
History of hypogammaglobulinemia
History of asthma
Recent corneal transplant
Essential hypertension
Hyperlipidemia
Chronic back pain
Consults: ID, pulmonology
Chest CT:
1. Multiple new small peripheral ground-glass and solid opacities diffusely distributed throughout the lungs most suggestive ACUTE PERIPHERAL ENDOBRONCHIAL INFECTION and MILD MULTIFOCAL PNEUMONIA. An acute inflammatory pneumonitis or pulmonary
hemorrhage are considered less likely.
2. Extensive chronic peripheral endobronchial infection throughout both lungs with many regions of peripheral 'tree-in-bud' endobronchial opacity. Atypical mycobacterial infection is a strong diagnostic possibility.
3. SEVERE CHRONIC BRONCHIECTASIS in the RIGHT MIDDLE LOBE and LINGULA.
4. Severe calcific atherosclerotic plaque in the coronary arteries.
5. Small pericardial effusion.
Procedures:
09/03/2024
Bronchoscopy with BAL
Hospital course:
84-year-old female with a past medical history of hypogammaglobulinemia, asthma, hypertension, recent corneal transplant, and bronchiectasis who was recently released from [facility] on 08/21/2024 for bronchiectasis exacerbation was
readmitted for acute exacerbation of chronic bronchiectasis secondary to multifocal pneumonia. Patient was treated with IV cefepime. She was seen in conjunction with pulmonology, and underwent bronchoscopy with bronchoalveolar lavage. Cultures
grew out Pseudomonas. ID and pulmonology transitioned her to ciprofloxacin 500 mg twice a day. She can continue this for total 14 days. Pulmonology recommends starting azithromycin 250 mg p.o. Tuesday/Tuesday/Fridays when she completes her
ciprofloxacin.
Patient continued to complain of coughing spells with mucus production. Pulmonology started her on a prednisone taper. By the following day, she reported improvement in her symptoms. She is medically stable and cleared by pulmonology for
discharge. Pulmonology recommends discharge on ciprofloxacin for total of 2 weeks as above. After she completes her ciprofloxacin, then she may may start azithromycin 250 mg p.o. Tuesday/Tuesday/Fridays. Pulmonology also recommends discharge on
prednisone taper, DuoNebs 3 times a day as needed and Mucomyst nebs twice a day.
Patient is medically stable for discharge. She needs to follow-up with her primary care doctor in 1 week, and her usual fisher lampara net in 2-3 weeks.
Disposition: Home with home care
Discharge planning: Required 38 minutes
Discharge Plan
-
Patient Disposition: Home (Routine Discharge)
Discharge Diagnosis/Procedures: Exacerbation of bronchiectasis
Condition: Fair
Diet: Low Fat, Low Cholesterol and Low Sodium
Activity: As tolerated
Driving Restrictions: As prior to admission
Activity Restrictions/Additional Instructions:
Pulmonology recommends ciprofloxacin 500 mg twice a day for 12 days.
Once you finish your ciprofloxacin, then you may start azithromycin every Tuesday/Tuesday/Tuesday.
Please follow-up with your usual fisher lampara net before you run out of this medication, so that they can direct you on what to do.
Follow-up with your primary care doctor in 1 week as well.
Referrals:
Shannan Escobar MD [Family Provider] - in one week
Prescriptions:
New
guaifenesin 600 mg Tablet Extended Release 12hr
600 mg PO Q12 30 Days Qty: 60 0RF
ipratropium-albuterol 0.5 mg-3 mg(2.5 mg base)/3 mL Solution For Nebulization
3 ml inhalation R TID PRN (Reason: shortness of breath or wheezing) Qty: 90 0RF
ciprofloxacin HCl 500 mg Tablet
500 mg PO BID 12 Days Qty: 24 0RF
prednisone 10 mg Tablet
See Rx Instructions .ROUTE .COMPLEX Qty: 30 0RF
Rx Instructions:
Take By Mouth:
40 mg daily x3 days, 30 mg daily x3 days,
20 mg daily x3 days, 10 mg daily x3 days.
acetylcysteine 100 mg/mL (10 %) Solution
2 ml inhalation BID Qty: 60 0RF
azithromycin 250 mg tablet
250 mg PO MOWEFR Qty: 12 0RF
Continued
losartan-hydrochlorothiazide 100-25 mg tablet
1 tab PO DAILY
arformoterol 15 mcg/2 mL solution for nebulization
15 mcg INHALATION R BID
magnesium oxide 140 mg Capsule
140 mg PO HS Qty: 0
albuterol sulfate 90 mcg/actuation Hfa Aerosol Inhaler
2 puff INHALATION R Q6HPRN PRN (Reason: SOB)
alprazolam [Xanax] 0.25 mg Tablet
0.125 mg PO HS
polyethylene glycol 3350 [HealthyLax] 17 gram powder in packet
25.5 g PO DAILY Qty: 0 0RF
Patient Comments:
'a capful' per patient
pantoprazole [Protonix] 40 mg Tablet,Delayed Release (Dr/Ec)
40 mg PO DAILY Qty: 0 0RF
ipratropium bromide 0.02 % solution
0.5 mg inhalation R BID Qty: 0 0RF
Patient Comments:
sometimes TID
lubiprostone [Amitiza] 24 mcg Capsule
24 mcg PO BID Qty: 0 0RF
Hizentra 4 gram/20 mL (20 %) Solution
8,000 mg SC QWEEK Qty: 0 0RF
prednisolone acetate 1 % Drops,Suspension
1 drp OPHTHALMIC (EYE) 6XD
moxifloxacin 0.5 % Drops
1 drp RIGHT EYE QID
carboxymethylcellulose sodium [Refresh Tears] 0.5 % drops
1 drp LEFT EYE QID
rosuvastatin 5 mg tablet
5 mg PO MOWEFR
Pulmozyme 1 mg/mL Solution
2.5 mg INHALATION DAILY
Discontinued
albuterol sulfate 2.5 mg /3 mL (0.083 %) Solution For Nebulization
2.5 mg INHALATION R BID
Patient Comments:
sometimes TID
Discharge Orders:
Discharge Patient (As Directed); Ordered 09/07/24
Ordered By: Corky Townsend
Discharge Date and Time
Discharge Date/Time: 09/07/24 15:42
Print Language: ROMANIAN
--- NOTE | 2024-09-07 13:01 | W.PN.PUL3 ---
Today's Communication / Plan
-
- Patient stable for discharge home
- Continue ciprofloxacin 500 mg twice daily for total of 2 weeks, once completed ciprofloxacin, start azithromycin 250 mg Tuesday and Tuesday. Patient will try it for a month and see how she does. Further antibiotic management per [facility]
infectious disease service, patient has an appointment next week
- Continue DuoNeb that patient uses at home along with Pulmozyme. Start Mucomyst 10% 2 mL nebulized twice a day for airway clearance, continue IPV for airway clearance
- Prednisone 40 mg for 3 days followed by 30 mg for 3 days followed by 20 mg for 3 days then 10 mg for 3 days then stop taking
- Continue monthly Tezspire for Asthma
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 I gave patient information regarding [facility] lung transplant department as well as [facility].
Assessment
-
Assessment: 83-year-old female with a past medical history of bronchiectasis, asthma, immunoglobulin deficiency, cystic fibrosis carrier, hypertension, history of pneumonia and history of Pseudomonas + Aspergillus who presents with fever +
productive cough for few days. 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 In the ER here she has been afebrile. She has been on room air saturating 95% or above. Initial labs show normal WBC at 10.3, and Hb 11.1. Respiratory culture
collected, and imaging shows multiple new peripheral groundglass and solid opacities with areas of increased tree-in-bud nodular opacities suspicious for an acute infection versus inflammatory pneumonitis. She has severe chronic bronchiectasis in
the right middle lobe + lingula. She was given cefepime and admitted to the hospitalist service. Pulmonary service now consulted for additional management/recommendations.
Chronic conditions [employer]: History of viral pneumonia, asthma, bronchiectasis, hip pain, hip placement, jaw pain, hypertension, elevated ANCA level, cystic fibrosis carrier
#1. Acute exacerbation of chronic bronchiectasis along with multifocal pneumonia
-Known history of CF carrier status
-Known colonization with Pseudomonas and Aspergillus and has been treated with intermittent tobramycin, Levaquin/azithromycin, follows up with infectious disease service at [facility]. Patient recently completed 2 weeks of IV cefepime on 08/30.
-S/p bronchoscopy and BAL on 09/03, follow-up on bacterial, fungal and AFB stains and cultures. Sputum culture showing Pseudomonas, pansensitive except to tobramycin.
-Continue airway clearance, with Mucomyst twice daily. Acapella device. Patient has not tolerated vest therapy in the past due to back pain. Patient uses IPV/intrapulmonary percussive ventilation at home to help with mucus clearance.
-Switched to ciprofloxacin 500 mg p.o. twice daily will aim to treat for 2 weeks following which we will consider azithromycin 3 times a day in view of recurrent exacerbations. Patient continues to be afebrile, has normal white count and does not
have much cough.
- Discharge home
#2. History of hypogammaglobulinemia
-Follows up with immunology services outpatient, currently on IVIG replacement, started in July 2024
#3. History of asthma.
- Lately has been on subcutaneous Tezspire, last dosage about a month ago
- Feels better since prednisone added. Suspect some of her symptoms were related to bronchospasm which seems to have responded well to prednisone.
.
DVT prophylaxis with Lovenox 40.
Discussed with infectious disease service also
Total time spent on this consultation/encounter _45___ minutes which includes review of history, physical exam, medications, laboratory data, personal review of imaging, extensive review of outpatient records, discussion with care team and
respiratory therapy.
Data:
CT Chest without contrast 09/02/2024:
1. Multiple new small peripheral ground-glass and solid opacities diffusely distributed throughout the lungs most suggestive ACUTE PERIPHERAL ENDOBRONCHIAL INFECTION and MILD MULTIFOCAL PNEUMONIA. An acute inflammatory pneumonitis or pulmonary
hemorrhage are considered less likely.
2. Extensive chronic peripheral endobronchial infection throughout both lungs with many regions of peripheral 'tree-in-bud' endobronchial opacity. Atypical mycobacterial infection is a strong diagnostic possibility.
3. SEVERE CHRONIC BRONCHIECTASIS in the RIGHT MIDDLE LOBE and LING[place]A.
4. Severe calcific atherosclerotic plaque in the coronary arteries.
5. Small pericardial effusion.
Subjective Data
-
Date of Service:
Date of Service: September 07, 2024
Subjective:
Patient comfortably sitting in bed, on room air, no new symptoms.
Review of Systems
Genitourinary: Other (All 14 systems reviewed and negative except as stated above in the history of present illness.)
Objective Data
Data Reviewed
Vital Signs / I&O / Oxygen:
Vital Signs
Temp Pulse Resp BP Pulse Ox
98.6 F 86 18 137/71 99
09/07/24 07:05 09/07/24 07:49 09/07/24 07:49 09/07/24 07:05 09/07/24 08:30
Intake and Output
09/06/24 09/07/24 09/08/24
06:59 06:59 06:59
Intake Total 960 / 960 300 / 300
Balance 960 / 960 300 / 300
SaO2 99
Nasal Cannula flow liters per 2
minute
Physical Exam
General: Comfortable
HEENT: Normocephalic
Cardiovascular: S1-S2
Respiratory: Rhonchi (Bilateral rhonchi on exam, )
GI: Soft and Non Distended
Neurology: Awake and Alert
Skin: Warm
Labs/Micro/Reports
Lab Data
09/04/24 09:56
09/04/24 09:56
Microbiology
09/03/24 16:27 Bronch Hollis Acid Fast Bacilli Smear - Preliminary
09/03/24 16:27 Bronch Hollis Acid Fast Bacilli Culture - Preliminary
09/03/24 16:27 Res Misc Acid Fast Bacilli Smear - Preliminary
09/03/24 16:27 Res Misc Acid Fast Bacilli Culture - Preliminary
09/03/24 16:27 Res Misc Respiratory Culture - Final
Pseudomonas aeruginosa
09/03/24 16:27 Res Misc Gram Stain - Final
09/03/24 16:27 Bronch Hollis Respiratory Culture - Final
Pseudomonas aeruginosa
09/03/24 16:27 Bronch Hollis Gram Stain - Final
09/01/24 21:56 Sputum Respiratory Culture - Final
Pseudomonas aeruginosa
09/01/24 21:56 Sputum Gram Stain - Final
[2024-09-07 14:10] VITALS: BP 161/69
== END 2024-09-07 15:42 | disposition home health service (06) | DRG 191 ==
LOC: 4 WEST ACU 14:29
PROVIDERS: Hospitalist; Internal Medicine; Physician Assistant; ADMITTING PHYSICIAN Internal Medicine; ATTENDING PHYSICIAN Family Medicine; CONSULT PHYSICIAN Internal Medicine Critical Care Medicine; CONSULT PHYSICIAN Internal Medicine Infectious Disease; EMERGENCY PHYSICIAN Student in an Organized Health Care Education/Training Program; FAMILY PHYSICIAN Family Medicine
PROC: 0B9L8ZX Drainage of Left Lung, Via Natural or Artificial Opening Endoscopic, Diagnostic (ICD-10-PCS; 2024-09-03)
PROC: 0B9D8ZX Drainage of Right Middle Lung Lobe, Via Natural or Artificial Opening Endoscopic, Diagnostic (ICD-10-PCS; 2024-09-03)
DX: J47.0 Bronchiectasis with acute lower respiratory infection (principal); A31.9 Mycobacterial infection, unspecified; D80.1 Nonfamilial hypogammaglobulinemia; N39.0 Urinary tract infection, site not specified; J44.0 Chronic obstructive pulmonary disease with (acute) lower respiratory infection; I31.39 Other pericardial effusion (noninflammatory); J47.1 Bronchiectasis with (acute) exacerbation; I10 Essential (primary) hypertension; N28.1 Cyst of kidney, acquired; J15.1 Pneumonia due to Pseudomonas; D64.9 Anemia, unspecified; M19.90 Unspecified osteoarthritis, unspecified site; G89.29 Other chronic pain; M54.9 Dorsalgia, unspecified; F41.9 Anxiety disorder, unspecified; I25.10 Atherosclerotic heart disease of native coronary artery without angina pectoris; E78.00 Pure hypercholesterolemia, unspecified; Z60.2 Problems related to living alone; Z96.643 Presence of artificial hip joint, bilateral; Z88.1 Allergy status to other antibiotic agents; Z88.5 Allergy status to narcotic agent; Z88.2 Allergy status to sulfonamides; Z79.51 Long term (current) use of inhaled steroids; Z79.52 Long term (current) use of systemic steroids; Z94.7 Corneal transplant status; Z14.1 Cystic fibrosis carrier; Z87.01 Personal history of pneumonia (recurrent); Z82.49 Family history of ischemic heart disease and other diseases of the circulatory system; Z83.3 Family history of diabetes mellitus; Z83.6 Family history of other diseases of the respiratory system; Z82.3 Family history of stroke; Z90.49 Acquired absence of other specified parts of digestive tract
CPT/HCPCS: 71046; 71250; 80048; 80053; 85025; 85027; 87015; 87070; 87077; 87102; 87116; 87186; 87205; 94640; 96374; 97162; 99285

== ENCOUNTER → 2024-10-15 12:39 | Outpatient (REF) | payer OTHER, SELFPAY | LOC: HWRAD 12:39 | PROVIDERS: ATTENDING PHYSICIAN Internal Medicine Infectious Disease; FAMILY PHYSICIAN Family Medicine | DX: J47.9 Bronchiectasis, uncomplicated (principal) | CPT/HCPCS: 71250 ==

== ENCOUNTER → 2024-10-22 11:46 | Outpatient (REF) | payer OTHER, SELFPAY | LOC: HWRAD 11:46 | PROVIDERS: ATTENDING PHYSICIAN Family Medicine | DX: R10.9 Unspecified abdominal pain (principal); R07.81 Pleurodynia | CPT/HCPCS: 71101; 74018 ==

== ENCOUNTER → 2024-12-10 12:56 | Outpatient (REF) | payer OTHER, SELFPAY | LOC: HWRAD 12:56 | PROVIDERS: ATTENDING PHYSICIAN Internal Medicine Pulmonary Disease; FAMILY PHYSICIAN Family Medicine | DX: R91.8 Other nonspecific abnormal finding of lung field (principal) | CPT/HCPCS: 71250 ==

== ENCOUNTER → 2025-01-28 20:14 | Emergency (ER) | payer OTHER, SELFPAY ==
[2025-01-28 20:20] VITALS: BP 190/82
[2025-01-28 20:46] LABS: Hematocrit 36.7 % (37.0-47.0); Hemoglobin 12.0 g/dL (12.0-16.0); Mean Corp Hgb Conc. 32.7 g/dL (33.0-37.0); Mean Corpuscular Volume 88.4 fL (81.0-99.0); Nucleated Red Blood Cells % 0 %; Platelet Count 237 10^3/uL (130-400); Red Cell Dist. Width 13.8 % (11.5-14.5)
[2025-01-28 21:07] VITALS: BP 172/76
[2025-01-28 21:12] LABS: ALT (SGPT) 20 U/L (0-35); AST (SGOT) 30 U/L (14-36); Albumin 4.7 g/dl (3.5-5.0); Alkaline Phosphatase 131 U/L (38-126); Blood Urea Nitrogen 14 mg/dl (7-17); Calcium 9.4 mg/dl (8.4-10.2); Carbon Dioxide 30 mmol/L (22-30); Chloride 93 mmol/L (98-107); Glucose 99 mg/dl (70-99); Potassium 3.7 mmol/L (3.5-5.1); Sodium 129 mmol/L (135-145); Total Protein 7.4 g/dl (6.3-8.2); eGFR > 60.00
[2025-01-28 21:22] LABS: Troponin I < 0.012 ng/ml
[2025-01-28 21:58] VITALS: BMI 24.4
[2025-01-28 22:00] VITALS: BP 169/73
[2025-01-28 23:06] VITALS: BP 151/66
--- NOTE | 2025-01-28 23:10 | ED.GENMED ---
History of Present Illness
General
Chief Complaint: Heart Rate Problem
Time Seen by Provider: 01/28/25 22:11
History of Present Illness
History of Present Illness:
84-year-old female with history of bronchiectasis and hypertension presenting to the emergency department for squeezing discomfort in her chest. Notes that she has had the symptoms on and off for several months. However in the past few days has
felt that it is more chronic. Notes that the pain is left-sided. Denies any difficulty breathing. Denies fever or cough. Does note that she follows with a x ray service technician through [place] [facility], and notes that she had a stress test several years
ago that was unremarkable. Does note that she does have known calcifications to her coronary vessels. Also reports family cardiac history. Denies any worsening with exertion. Denies additional acute medical complaints
Past History
Past History
ED Past Medical History: Asthma, COPD, HTN and Other (Bronchiectasis, UTi, Kidney cyst, OA)
ED Past Surgical History: Orthopedic (right and left hip replacement)
Social History
Tobacco: Non-smoker
Alcohol: None
Personal:
Living: alone
Phy Exam
Physical Exam
Physical Exam:
General: Well-appearing, no clinical signs of dehydration, nontoxic and in no acute distress
HEENT: protecting airway
Neck: appears supple
CV: Normal heart rate, regular rhythm
Resp: No accessory muscle use, no increased work of breathing, mild rhonchi bilaterally which patient reports is chronic from her bronchiectasis
Abd: Soft and non-distended, no tenderness to palpation
Extremities: No deformities, no swelling
Neuro: alert, no focal neurologic deficit
: deferred
Rectal: deferred
Psych: Normal affect
Skin: Intact
Scores
Heart Score for Chest Pain Patients
STEMI patient?: No
History: Slightly or Non-Suspicious
ECG: Normal
Age: >/= 65 years
Risk Factors: 1 or 2 Risk Factors
Troponin: </= Normal Limit
Heart Score for Chest Pain Patients: 3
Heart Score Risk: 2.5% MACE over next 6 weeks
Course
Orders/Labs/Results
Orders:
Orders
01/28/25 20:15
EKG [Electrocardiogram (*1)] Urgent
Reason for Study: Palpitations
EKG- Treatment ONCE
01/28/25 20:23
Cardiac Monitoring- Treatment ONCE
01/28/25 20:33
Complete Blood Count/With Diff Urgent
Comprehensive Metabolic Panel Urgent
Troponin I Urgent
01/28/25 22:51
CR Chest - 2 Views Urgent
Comment:
Reason For Exam: chest pain
Abnormal Lab Results
01/28/25
20:33
RBC 4.15 L 10^6/uL
(4.20-5.40)
Hct 36.7 L %
(37.0-47.0)
MCHC 32.7 L g/dL
(33.0-37.0)
Sodium 129 L mmol/L
(135-145)
Chloride 93 L mmol/L
(98-107)
Alkaline Phosphatase 131 H U/L
(38-126)
01/28/25 20:33
01/28/25 20:33
Vital Signs
Initial and Last Documented VS:
Initial Vital Signs
Temp Pulse Resp BP Pulse Ox
97.7 F 84 18 190/82 98
01/28/25 20:20 01/28/25 20:20 01/28/25 20:20 01/28/25 20:20 01/28/25 20:20
Last Documented Vital Signs
Temp Pulse Resp BP Pulse Ox
97.7 F 72 14 145/66 96
01/28/25 20:20 01/29/25 00:45 01/29/25 00:45 01/29/25 00:00 01/29/25 00:45
MDM/Problems Addressed
MDM/Problems Addressed:
84-year-old female with history of bronchiectasis and hypertension presenting for chest discomfort. Vital signs on arrival are significant for high blood pressure, however patient notes that typically has elevated blood pressure when she is in the
hospital.
On exam patient is resting comfortably, no acute distress or discomfort. Unremarkable cardiac and pulmonary exam. Noted to have some abnormal lung sounds, however patient notes that that is her baseline. She presently denies any respiratory
symptoms. EKG obtained on arrival, nonischemic, unchanged from prior. Given duration of symptoms and reassuring EKG, lower suspicion for ACS. However patient does have significant coronary risk factors, so labs obtained prior to my assessment
including troponin, undetectable. At this time patient low risk by heart score. However given her family history and her comorbidities, feel patient warrants continued follow-up with cardiology. Given her pulmonary history as well, will obtain
chest x-ray imaging.
23:45 - Chest x-ray without acute cardiopulmonary disease. Does show chronic lung changes. Blood pressure has improved without intervention. At this time patient remains stable. Ultimately feel stable for discharge, however advise close
follow-up with her x ray service technician. Strict return precautions communicated and patient verbalized understanding
*Pulse Oximetry
SaO2: 97
Oxygen Mode of Delivery: Room air
Patient hypoxic: no
*EKG
Interpreted by ED Provider?: Yes
EKG Intrepretation Date: 01/28/25
EKG Intrepretation Time: 23:13
Interpretation: normal
Comparison EKG: no changes (07/29/24)
Heart Rate: 86
Rate: normal
Rhythm: sinus
[place]: normal axis
Interval: normal interval
QRS Pattern: normal QRS
Ischemia: no ischemia
*Critical Care Note
Total Time (30-74mins, 75-104mins- exclusive of procedures): Not Applicable
ED Attending Note
-
Portions of this chart may have been created with voice recognition software.� Occasional wrong word or��sound alike� substitutions may have occurred due to the inherent limitations of voice recognition software.
Discharge Plan
Departure
Patient Disposition: Home (Routine Discharge)
Date of Disposition: 01/28/25
Time of Disposition: 23:48
Patient with high blood pressure during this ER visit?: Yes
Condition: Good
Discharge Problem:
Chest pain
Instructions: Chest pain (DC)
Prescriptions:
No Action
losartan-hydrochlorothiazide 100-25 mg tablet
1 tab PO DAILY
arformoterol 15 mcg/2 mL solution for nebulization
15 mcg INHALATION R BID
magnesium oxide 140 mg Capsule
140 mg PO HS Qty: 0
albuterol sulfate 90 mcg/actuation Hfa Aerosol Inhaler
2 puff INHALATION R Q6HPRN PRN (Reason: SOB)
alprazolam [Xanax] 0.25 mg Tablet
0.125 mg PO HS
polyethylene glycol 3350 [HealthyLax] 17 gram powder in packet
25.5 g PO DAILY Qty: 0 0RF
Patient Comments:
'a capful' per patient
pantoprazole [Protonix] 40 mg Tablet,Delayed Release (Dr/Ec)
40 mg PO DAILY Qty: 0 0RF
ipratropium bromide 0.02 % solution
0.5 mg inhalation R BID Qty: 0 0RF
Patient Comments:
sometimes TID
lubiprostone [Amitiza] 24 mcg Capsule
24 mcg PO BID Qty: 0 0RF
Hizentra 4 gram/20 mL (20 %) Solution
8,000 mg SC QWEEK Qty: 0 0RF
prednisolone acetate 1 % Drops,Suspension
1 drp OPHTHALMIC (EYE) 6XD
moxifloxacin 0.5 % Drops
1 drp RIGHT EYE QID
carboxymethylcellulose sodium [Refresh Tears] 0.5 % drops
1 drp LEFT EYE QID
rosuvastatin 5 mg tablet
5 mg PO MOWEFR
Pulmozyme 1 mg/mL Solution
2.5 mg INHALATION DAILY
guaifenesin 600 mg Tablet Extended Release 12hr
600 mg PO Q12 30 Days Qty: 60 0RF
ipratropium-albuterol 0.5 mg-3 mg(2.5 mg base)/3 mL Solution For Nebulization
3 ml inhalation R TID PRN (Reason: shortness of breath or wheezing) Qty: 90 0RF
ciprofloxacin HCl 500 mg Tablet
500 mg PO BID 12 Days Qty: 24 0RF
prednisone 10 mg Tablet
See Rx Instructions .ROUTE .COMPLEX Qty: 30 0RF
Rx Instructions:
Take By Mouth:
40 mg daily x3 days, 30 mg daily x3 days,
20 mg daily x3 days, 10 mg daily x3 days.
acetylcysteine 100 mg/mL (10 %) Solution
2 ml inhalation BID Qty: 60 0RF
azithromycin 250 mg tablet
250 mg PO MOWEFR Qty: 12 0RF
Referrals:
Shannan Escobar MD [Family Provider]
Activity Restrictions/Additional Instructions:
You were seen in the emergency department for chest pain
You were found to have reassuring laboratory analysis and EKG. We recommend that you follow-up closely with your x ray service technician
Please follow-up closely with your primary care physician.
Return to the emergency department for any worsening of your symptoms, or any development of chest pain, difficulty breathing, abdominal pain with persistent vomiting and inability to tolerate food or liquid by mouth (concern for dehydration),
weakness, headache or confusion, fever greater than 100.4, or any additional symptoms that are concerning to you.
Thank you for choosing [facility].
Interventions
Interventions:
*Risk Screen - Suicide Last Done: 01/28/25 20:20
*General Assessment Last Done: 01/28/25 21:58
*Neglect/Abuse Screening Last Done: 01/28/25 20:20
*ED- Fall Risk Assessment Last Done: 01/28/25 21:58
*ED COVID-19 Vaccine History Last Done: 01/28/25 21:58
*ED Influenza Vaccine History Last Done: 01/28/25 21:58
ED- Cardiac Assessment Last Done: 01/28/25 23:10
ED- Pulmonary Assessment Last Done: 01/28/25 21:58
Discharge Date and Time
Print Language: HEBREW
[2025-01-28 23:30] VITALS: BP 162/69
[2025-01-29] VITALS: BP 145/66
== END | disposition home or self-care (01) ==
LOC: EMR 20:14
PROVIDERS: Emergency Medicine; EMERGENCY PHYSICIAN Student in an Organized Health Care Education/Training Program; FAMILY PHYSICIAN Family Medicine
DX: R07.89 Other chest pain (principal); I10 Essential (primary) hypertension; J44.89 Other specified chronic obstructive pulmonary disease; M16.0 Bilateral primary osteoarthritis of hip; Z87.440 Personal history of urinary (tract) infections; Z96.642 Presence of left artificial hip joint
CPT/HCPCS: 99283; 71046; 80053; 84484; 85025; 93005

== ENCOUNTER → 2025-01-30 07:23 | Outpatient (REF) | payer OTHER, SELFPAY | LOC: PAVMRI 07:23 | PROVIDERS: ATTENDING PHYSICIAN Nurse Practitioner Family | DX: R10.11 Right upper quadrant pain (principal) | CPT/HCPCS: 74183; A9575 ==